=== PATIENT | male | born 1975 | race Caucasian/White ===

== ENCOUNTER 2021-12-04 14:33 | Outpatient (REF) | payer OTHER, SELFPAY ==
[2021-12-04 15:27] LABS: MANUAL DIFF FLAG NO
[2021-12-04 15:34] LABS: Basophils Percent Auto 0.2 % (0-2); Eosinophils Percent Auto 0.2 % (0-4); Hematocrit 37.8 % (42.0-52.0); Hemoglobin 11.2 g/dl (14.0-18.0); Imm Gran Abs Auto 0.81 X10*3/uL (0.00-0.03); Imm Gran Pct Auto 4.6 % (0.0-0.4); Lymphocytes Absolute Auto 0.6 X10*3/uL (1.2-4.9); Lymphocytes Percent Auto 3.3 % (20-40); Mean Corpuscular HGB Conc 29.6 g/dl (31.0-36.0); Mean Corpuscular Hemoglobin 25.2 pg (27.0-33.0); Mean Corpuscular Volume 85.1 fL (80.0-98.0); Mean Platelet Volume 10.3 fL (9.4-12.4); Monocytes Absolute Auto 0.9 X10*3/uL (0.1-1.2); Monocytes Percent Auto 5.2 % (2-11); Neutrophils Absolute Auto 15.3 x10*3/uL (2.0-8.3); Neutrophils Percent Auto 86.5 % (45-73); Platelet Count 292 X10*3/uL (160-400); Red Blood Count 4.44 X10*6/uL (4.60-5.80); Red Cell Distribution Width 23.8 % (11.0-16.0); White Blood Count 17.7 X10*3/uL (4.8-10.8)
[2021-12-04 15:39] LABS: INTERNATIONAL NORM RATIO 1.3 (0.9-1.1); Prothrombin Time 14.4 SEC (9.9-13.0)
[2021-12-04 16:08] LABS: Erythrocyte Sedimentation Rate 78 MM/HR (0-15)
[2021-12-04 17:39] LABS: Alanine Aminotransferase 291 U/L (0-40); Albumin Level 3.2 g/dL (3.5-5.0); Alkaline Phosphatase 2920 U/L (39-117); Anion Gap 15 (12-20); Aspartate Amino Transferase 204 U/L (5-37); Bilirubin Direct 17.5 mg/dL (0.0-0.5); Bilirubin Total 21.5 mg/dL (0.0-1.0); Blood Urea Nitrogen 25 mg/dL (9-16); C Reactive Protein 3.49 mg/dL (< or = 0.50); Calcium 9.1 mg/dL (8.4-10.2); Carbon Dioxide 22 mmol/L (22-29); Chloride 104 mmol/L (96-108); Estimated Glomerular Filt Rate > 60; Glucose Random 135 mg/dL (60-115); Iron 28 mcg/dL (45-160); Percent Iron Saturation 10 % (15-50); Potassium 3.7 mmol/L (3.3-5.1); Sodium 137 mmol/L (135-145); Total Iron Binding Capacity 272 mcg/dL (228-428); Total Protein 5.8 g/dL (6.5-8.0); Unsaturated Iron Binding 244 ug/dL
[2021-12-04 18:10] LABS: Ferritin 1784 ng/mL (20-250)
[2021-12-05 10:28] LABS: HBsAGNum1 0.15 S/CO (0.00-0.99); Hepatitis B Surface Antigen Negative (Negative); ~HepC Num1 0.09 S/CO (0.00-0.79); ~Hepatitis C Antibody Nonreactive (Nonreactive)
[2021-12-05 11:28] LABS: HBc Num1 0.49 S/CO (0.00-0.79); Hepatitis B Core Antibody Nonreactive (Nonreactive); ~Hepatitis B Surface Antibody NONREACTIVE (Nonreactive)
[2021-12-06 09:15] LABS: Hepatitis A Antibody IgM 0.15 Index (0-0.79); ~Hepatitis A Antibody IgM Nonreactive (Nonreactive)
[2021-12-06 11:51] LABS: Anti Nuclear Antibody Screen NEGATIVE (NEGATIVE)
[2021-12-06 18:56] LABS: Alpha 1 Anti-trypsin 264 mg/dL (83-199); Ceruloplasmin 37 mg/dL (18-36)
[2021-12-07 16:17] LABS: FIB-ALT 260 U/L (9-46); FIB-Alpha-2-Macroglobulin 464 mg/dL (106-279); FIB-Apolipoprotein A1 46 mg/dL (94-176); FIB-GGT 2620 U/L (3-95); FIB-Haptoglobin 454 mg/dL (43-212); FIB-Total Bilirubin 21.6 mg/dL (0.2-1.2); Liver Fibrosis Stage F4; Nec Inflam Act Grade A3; Nec Inflam Act Score 0.95
[2021-12-09 13:27] LABS: Smooth Muscle Antibody <20 U (<20)
[2021-12-09 13:36] LABS: Alpha Fetoprotein 3.5 ng/mL (<6.1)
[2021-12-09 14:36] LABS: Mitochondrial Antibodies NEGATIVE (NEGATIVE)
== END 2021-12-04 14:34 | disposition home or self-care (01) ==
LOC: HO.LAB 14:33
PROVIDERS: PCP Pediatrics; Visit Provider Internal Medicine
DX: R17 Unspecified jaundice (principal)
CPT/HCPCS: 36415; 80053; 81596; 82103; 82105; 82140; 82248; 82390; 82728; 83540; 85025; 85610; 85652; 86015; 86038; 86039; 86140; 86255; 86256; 86704; 86706; 86709; 86803; 87340

== ENCOUNTER 2021-12-23 11:55 | Outpatient (REF) | payer OTHER, SELFPAY ==
[2021-12-23 12:28] LABS: MANUAL DIFF FLAG NO
[2021-12-23 12:38] LABS: Basophils Percent Auto 0.2 % (0-2); Eosinophils Percent Auto 0.1 % (0-4); Hematocrit 38.4 % (42.0-52.0); Hemoglobin 11.3 g/dl (14.0-18.0); Imm Gran Abs Auto 0.57 X10*3/uL (0.00-0.03); Imm Gran Pct Auto 3.1 % (0.0-0.4); Lymphocytes Absolute Auto 0.6 X10*3/uL (1.2-4.9); Lymphocytes Percent Auto 3.1 % (20-40); Mean Corpuscular HGB Conc 29.4 g/dl (31.0-36.0); Mean Corpuscular Hemoglobin 25.4 pg (27.0-33.0); Mean Corpuscular Volume 86.3 fL (80.0-98.0); Mean Platelet Volume 9.6 fL (9.4-12.4); Monocytes Absolute Auto 0.9 X10*3/uL (0.1-1.2); Monocytes Percent Auto 4.9 % (2-11); Neutrophils Absolute Auto 16.3 x10*3/uL (2.0-8.3); Neutrophils Percent Auto 88.6 % (45-73); Platelet Count 247 X10*3/uL (160-400); Red Blood Count 4.45 X10*6/uL (4.60-5.80); Red Cell Distribution Width 23.9 % (11.0-16.0); White Blood Count 18.4 X10*3/uL (4.8-10.8)
[2021-12-23 12:42] LABS: INTERNATIONAL NORM RATIO 1.3 (0.9-1.1); Prothrombin Time 14.4 SEC (9.9-13.0)
[2021-12-23 12:45] LABS: Partial Thromboplastin Time 36.7 SEC (24.1-38.0)
[2021-12-23 12:50] LABS: Ammonia 42 umol/L (13-55)
== END 2021-12-23 11:56 | disposition home or self-care (01) ==
LOC: HO.LAB 11:55
PROVIDERS: Visit Provider Internal Medicine
DX: R17 Unspecified jaundice (principal)
CPT/HCPCS: 36415; 82140; 85025; 85610; 85730

== ENCOUNTER 2021-12-25 07:55 | Day surgery (SDC) | payer OTHER, SELFPAY ==
--- NOTE | ~2021-12-25 | US_ITS ---
EXAMINATION: ULTRASOUND-GUIDED LIVER CORE BIOPSY CLINICAL INFORMATION: Jaundice. COMPARISON: None TECHNIQUE: Ultrasound-guided core biopsy of the liver. FINDINGS: Informed consent was obtained from the patient prior to the procedure. During this process, the procedure and potential alternatives were explained, along with the intended outcome and benefits. The risks of the procedure, as well as the risk of not doing the procedure, were discussed. The patient was given the opportunity to ask questions regarding the procedure and appeared competent to make medical decisions. A signed consent form which documents this discussion was placed in the medical record. Using sterile technique and ultrasound guidance a 17-gauge guiding needle was directed into the left lobe of liver. 3 18-gauge core biopsy samples were obtained with 2 being sent for pathology and the third being sent for quantitative iron stores. The patient tolerated the procedure without difficulty. Postprocedure there is no subcapsular fluid collection. US/US biopsy liver IMPRESSION: Core biopsy of the liver with ultrasound guidance as described.
[2021-12-25 07:40] VITALS: BMI 27.8
[2021-12-25 08:16] LABS: MANUAL DIFF FLAG NO
[2021-12-25 08:24] LABS: Basophils Absolute Auto 0.1 X10*3/uL (0.0-0.2); Basophils Percent Auto 0.3 % (0-2); Eosinophils Percent Auto 0.2 % (0-4); Hematocrit 41.1 % (42.0-52.0); Hemoglobin 12.1 g/dl (14.0-18.0); Imm Gran Abs Auto 0.56 X10*3/uL (0.00-0.03); Imm Gran Pct Auto 3.4 % (0.0-0.4); Lymphocytes Absolute Auto 1.1 X10*3/uL (1.2-4.9); Lymphocytes Percent Auto 6.9 % (20-40); Mean Corpuscular HGB Conc 29.4 g/dl (31.0-36.0); Mean Corpuscular Hemoglobin 25.1 pg (27.0-33.0); Mean Corpuscular Volume 85.1 fL (80.0-98.0); Monocytes Absolute Auto 0.9 X10*3/uL (0.1-1.2); Monocytes Percent Auto 5.6 % (2-11); Neutrophils Absolute Auto 13.8 x10*3/uL (2.0-8.3); Neutrophils Percent Auto 83.6 % (45-73); Platelet Count 262 X10*3/uL (160-400); Red Blood Count 4.83 X10*6/uL (4.60-5.80); Red Cell Distribution Width 23.6 % (11.0-16.0); White Blood Count 16.5 X10*3/uL (4.8-10.8)
[2021-12-25 08:32] LABS: INTERNATIONAL NORM RATIO 1.2 (0.9-1.1)
[2021-12-25 08:35] LABS: Glucose, Whole Blood 87 mg/dL (60-115)
[2021-12-25 08:35] LABS: Partial Thromboplastin Time 42.1 SEC (24.1-38.0)
[2021-12-25 08:37] LABS: Anion Gap 13 (12-20); Carbon Dioxide 24 mmol/L (22-29); Chloride 104 mmol/L (96-108); Potassium 3.6 mmol/L (3.3-5.1); Sodium 137 mmol/L (135-145)
[2021-12-25] MEDS: Lidocaine HCl 1 % MPF 5 ML VIAL SUBCUT (09:24)
[2021-12-25 10:04] VITALS: BP 104/59; PULSE 99; RESP 18; TEMP 36.8; O2SAT 99
[2021-12-25 10:34] VITALS: BP 94/60; PULSE 100; RESP 18; O2SAT 97
[2021-12-25 11:04] VITALS: BP 105/73; PULSE 95; RESP 18; O2SAT 97
[2021-12-25 11:34] VITALS: BP 111/62; PULSE 99; RESP 18; O2SAT 97
[2021-12-25 12:04] VITALS: BP 104/60; PULSE 96; RESP 18; TEMP 36.8; O2SAT 97
[2022-01-03 14:11] LABS: Iron Index 0.1 umol/g/yr (<1.0); Iron, Liver Tissue 217 ug/g drywt (400-2200)
== END 2021-12-25 12:10 | disposition home or self-care (01) ==
LOC: HO.SSS 07:55
PROVIDERS: Radiology Diagnostic Radiology; PCP Pediatrics; Visit Provider Radiology Diagnostic Radiology
DX: R17 Unspecified jaundice (principal); K76.89 Other specified diseases of liver; U07.1 COVID-19; J45.909 Unspecified asthma, uncomplicated; Z79.51 Long term (current) use of inhaled steroids; Z79.899 Other long term (current) drug therapy; Z88.0 Allergy status to penicillin; Z88.8 Allergy status to other drugs, medicaments and biological substances
CPT/HCPCS: 36415; 47000; 76942; 80051; 82947; 83540; 85025; 85610; 85730; 88300; 88307; 88313; 99152; 99153; J2250; J3010

== ENCOUNTER 2022-10-31 13:07 | Outpatient (REF) | payer OTHER, SELFPAY ==
--- NOTE | ~2022-10-31 | MR_ITS ---
EXAMINATION: MR ABDOMEN WITHOUT AND WITH CONTRAST CLINICAL INFORMATION: Liver disease, jaundice, Covid liver injury COMPARISON: Liver biopsy ultrasound 01/12/2022 TECHNIQUE: MRI of the abdomen before and after the IV administration of 10 mL of Gadavist was obtained using routine sequences. FINDINGS: LUNG BASES: The visualized lung bases are unremarkable. KIDNEYS AND URETERS: Unremarkable. GALLBLADDER: Status post cholecystectomy. LIVER AND BILIARY TREE: Abnormal signal and morphology in the liver most notably throughout the left hepatic lobe. There are regions of T2 hypointense and hypoenhancing signal in a lobular masslike appearance clustered around the intrahepatic bile ducts with trace associated intrahepatic biliary duct dilatation. Liver is enlarged measuring 25.5 cm in span. Benign-appearing hepatic cysts. PANCREAS: Unremarkable SPLEEN: Spleen is enlarged measuring 16.4 cm in span. ADRENAL GLANDS: Unremarkable GASTROINTESTINAL TRACT: Unremarkable. LYMPH NODES: No lymphadenopathy. VASCULAR: Unremarkable ABDOMINAL WALL: Unremarkable. OSSEOUS STRUCTURES: Unremarkable. 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 Hepatosplenomegaly.
== END 2022-10-31 13:08 | disposition home or self-care (01) ==
LOC: HO.MRI 13:07
PROVIDERS: PCP Pediatrics; Visit Provider Internal Medicine
DX: K76.89 Other specified diseases of liver (principal)
CPT/HCPCS: 74183; A9585

== ENCOUNTER 2022-12-04 14:19 | Outpatient (REF) | payer OTHER, SELFPAY ==
[2022-12-04 15:04] LABS: Alanine Aminotransferase 55 U/L (0-40); Alkaline Phosphatase 448 U/L (39-117); Aspartate Amino Transferase 90 U/L (5-37); Bilirubin Direct 6.1 mg/dL (0.0-0.5); Bilirubin Total 8.1 mg/dL (0.0-1.0); Total Protein 5.6 g/dL (6.5-8.0)
[2022-12-12 00:24] LABS: Alpha Fetoprotein 2.3 ng/mL (<6.1); Carbohydrate Antigen 19-9 40 U/mL (<34); FIB-ALT 57 U/L (9-46); FIB-Alpha-2-Macroglobulin 284 mg/dL (106-279); FIB-Apolipoprotein A1 54 mg/dL (94-176); FIB-GGT 249 U/L (3-95); FIB-Haptoglobin 131 mg/dL (43-212); FIB-Total Bilirubin 7.6 mg/dL (0.2-1.2); Liver Fibrosis Score 0.97; Liver Fibrosis Stage F4; Nec Inflam Act Grade A2; Nec Inflam Act Score 0.58
== END 2022-12-04 14:20 | disposition home or self-care (01) ==
LOC: HO.LAB 14:19
PROVIDERS: PCP Pediatrics; Visit Provider Internal Medicine
DX: R93.2 Abnormal findings on diagnostic imaging of liver and biliary tract (principal); R17 Unspecified jaundice; K76.89 Other specified diseases of liver; K83.9 Disease of biliary tract, unspecified
CPT/HCPCS: 36415; 80076; 81596; 82105; 82378; 86301

== ENCOUNTER 2023-03-18 15:34 | Outpatient (REF) | payer OTHER, SELFPAY ==
[2023-03-18 15:52] LABS: MANUAL DIFF FLAG NO
[2023-03-18 16:04] LABS: Ammonia 33 umol/L (13-55)
[2023-03-18 17:24] LABS: Basophils Absolute Auto 0.1 X10*3/uL (0.0-0.2); Basophils Percent Auto 0.7 % (0-2); Eosinophils Absolute Auto 0.1 X10*3/uL (0.0-0.4); Eosinophils Percent Auto 1.1 % (0-4); Hematocrit 39.8 % (42.0-52.0); Hemoglobin 12.8 g/dl (14.0-18.0); Imm Gran Abs Auto 0.06 X10*3/uL (0.00-0.03); Imm Gran Pct Auto 0.5 % (0.0-0.4); Lymphocytes Percent Auto 8.1 % (20-40); Mean Corpuscular HGB Conc 32.2 g/dl (31.0-36.0); Mean Corpuscular Hemoglobin 28.3 pg (27.0-33.0); Mean Corpuscular Volume 88.1 fL (80.0-98.0); Mean Platelet Volume 11.5 fL (9.4-12.4); Monocytes Absolute Auto 1.3 X10*3/uL (0.1-1.2); Monocytes Percent Auto 11.1 % (2-11); Neutrophils Absolute Auto 9.3 x10*3/uL (2.0-8.3); Neutrophils Percent Auto 78.5 % (45-73); Platelet Count 239 X10*3/uL (160-400); Red Blood Count 4.52 X10*6/uL (4.60-5.80); Red Cell Distribution Width 21.8 % (11.0-16.0); White Blood Count 11.8 X10*3/uL (4.8-10.8)
[2023-03-18 17:39] LABS: INTERNATIONAL NORM RATIO 1.4 (0.9-1.1)
[2023-03-18 18:08] LABS: Alanine Aminotransferase 40 U/L (0-40); Albumin Level 2.8 g/dL (3.5-5.0); Alkaline Phosphatase 350 U/L (39-117); Anion Gap 13 (12-20); Aspartate Amino Transferase 65 U/L (5-37); Bilirubin Direct 5.9 mg/dL (0.0-0.5); Bilirubin Total 7.9 mg/dL (0.0-1.0); Blood Urea Nitrogen 14 mg/dL (9-16); Calcium 8.6 mg/dL (8.4-10.2); Carbon Dioxide 24 mmol/L (22-29); Chloride 111 mmol/L (96-108); Estimated Glomerular Filt Rate > 60; Glucose Random 89 mg/dL (60-115); Potassium 4.3 mmol/L (3.3-5.1); Sodium 144 mmol/L (135-145); Total Protein 6.3 g/dL (6.5-8.0)
== END 2023-03-18 15:35 | disposition home or self-care (01) ==
LOC: HO.LAB 15:34
PROVIDERS: Visit Provider Internal Medicine
DX: K74.60 Unspecified cirrhosis of liver (principal)
CPT/HCPCS: 36415; 80048; 80076; 82140; 85025; 85610

== ENCOUNTER 2023-07-27 10:21 | Day surgery (SDC) | payer MEDICARE, SELFPAY ==
--- NOTE | 2023-07-24 12:37 | HO.ANESPROP2 ---
Documented by User: Lora Gonzales NP 07/24/23 13:06 HPI - Anesthesia Eval Consult details Narrative: 48yo M for Upper Endoscopy and Colonoscopy Pt admitted at [facility] 07/20/23-07/23/23 for choledocholithiasis requiring ERCP (stones and sludge extracted). IV abx with concern for cholangitis. Paracentesis fluid with no signs of SBP. Discharged home on abx for 7 days total tx. Pt with cirrhosis following long inpt COVID 2020 / meropenem Unable to reach patient by phone to confirm current status or completion of abx. Reviewed with Dr Solange GOMEZ Past Medical History Medical History Ascites COVID-19 Asthma Surgical History Surgical History Hx of tracheostomy History of left inguinal hernia repair Hx of cholecystectomy History of ERCP Social History Social History Are you a primary director day care center to a significant other at home: No Patient Tobacco Use Status: Never used Tobacco Meds Allergies Allergy/AdvReac Type Severity Reaction Status Date / Time amoxicillin Allergy Hives Verified 12/25/21 08:31 meropenem Allergy Nose Bleed Verified 12/25/21 08:31 quetiapine [From Seroquel] Allergy Unknown Verified 12/25/21 08:31 Home Medications Medication Instructions Recorded Confirmed Last Taken Type dicyclomine 10 mg capsule 10 mg PO QID PRN abdominal cramps 07/24/23 07/24/23 Unknown History fluticasone 250 mcg-salmeterol 50 1 ea inhalation 07/24/23 Unknown History mcg/dose blistr powdr for inhalation (Advair Diskus) gabapentin 600 mg tablet 600 mg PO 07/24/23 Unknown History montelukast 10 mg tablet 10 mg PO QPM 07/24/23 07/24/23 Unknown History naltrexone 50 mg tablet 50 mg PO DAILY PRN Itching 07/24/23 07/24/23 Unknown History omeprazole 20 mg capsule,delayed 20 mg PO DAILY 07/24/23 07/24/23 Unknown History release pregabalin 25 mg capsule 25 mg PO TID 07/24/23 07/24/23 Unknown History spironolactone 25 mg tablet 25 mg PO DAILY 07/24/23 07/24/23 Unknown History umeclidinium 62.5 mcg/actuation 1 inh inhalation DAILY 07/24/23 07/24/23 Unknown History blister powder for inhalation (Incruse Ellipta) ursodiol 500 mg tablet 500 mg PO TID 07/24/23 07/24/23 Unknown History Exam Exam Date and Time: July 24, 2023 1237 Pertinent Lab Results Pertinent Lab Results: BMP 07/23/23 Na 136 K 4.2 Cl 107 Bicarb 18 (L) BUN 33 (H) Creat 1.4 (H) WBC 14.2 (H) Hgb 11.3 (L) HCT 34.8 (L) Plt 221 Narrative Narrative: CXR 07/20/23 Low lung volumes with lung base atelectasis. No definite acute process CT Abd/Pelvis 07/20/23 Moderate to severe intrahepatic and extrahepatic biliary duct dilation, CBD measuring up to 2.8cm. Vague hyperdensities in the mid and distal CBD may represent noncalcified choedocholithiasis. Cirrhotic liver with portal htn, large volume ascites Assessment and Plan Assessment Anesthesia Assessment: Chart Reviewed Documented by User: Amelia Lizama MD 07/27/23 13:17 PMFSH Active Problems Active Problems: S/p ERCP last week Bilirubin today, Lfts worse. INR 1.9 H/o tracheostomy- closed Past Medical History Medical History Ascites COVID-19 Asthma Family History Family history of problems with anesthesia: No Surgical History Surgical History Hx of tracheostomy History of left inguinal hernia repair Hx of cholecystectomy History of ERCP History of Problems with Anesthesia: No Social History Social History Are you a primary director day care center to a significant other at home: No Patient Tobacco Use Status: Never used Tobacco Meds Allergies Allergy/AdvReac Type Severity Reaction Status Date / Time amoxicillin Allergy Hives Verified 12/25/21 08:31 meropenem Allergy Nose Bleed Verified 12/25/21 08:31 quetiapine [From Seroquel] Allergy Unknown Verified 12/25/21 08:31 Home Medications Medication Instructions Recorded Confirmed Last Taken Type dicyclomine 10 mg capsule 10 mg PO QID PRN abdominal cramps 07/24/23 07/24/23 Unknown History fluticasone 250 mcg-salmeterol 50 1 ea inhalation 07/24/23 Unknown History mcg/dose blistr powdr for inhalation (Advair Diskus) gabapentin 600 mg tablet 600 mg PO 07/24/23 Unknown History montelukast 10 mg tablet 10 mg PO QPM 07/24/23 07/24/23 Unknown History naltrexone 50 mg tablet 50 mg PO DAILY PRN Itching 07/24/23 07/24/23 Unknown History omeprazole 20 mg capsule,delayed 20 mg PO DAILY 07/24/23 07/24/23 Unknown History release pregabalin 25 mg capsule 25 mg PO TID 07/24/23 07/24/23 Unknown History spironolactone 25 mg tablet 25 mg PO DAILY 07/24/23 07/24/23 Unknown History umeclidinium 62.5 mcg/actuation 1 inh inhalation DAILY 07/24/23 07/24/23 Unknown History blister powder for inhalation (Incruse Ellipta) ursodiol 500 mg tablet 500 mg PO TID 07/24/23 07/24/23 Unknown History Exam Height,Weight and Vital Signs: Height 6 ft Weight 95.254 kg Vital Signs Temp Pulse Resp BP Pulse Ox O2 Del Method 07/27/23 11:52 96.9 F 90 18 108/68 99 Room Air Pertinent Lab Results Pertinent Lab Results: Lab Results 07/27/23 Range/Units 11:45 WBC 16.8 H (4.8-10.8) X10*3/uL RBC 4.60 (4.60-5.80) X10*6/uL Hgb 13.0 L (14.0-18.0) g/dl Hct 38.0 L (42.0-52.0) % MCV 82.6 (80.0-98.0) fL MCH 28.3 (27.0-33.0) pg MCHC 34.2 (31.0-36.0) g/dl RDW 21.0 H (11.0-16.0) % Plt Count 206 (160-400) X10*3/uL MPV 10.3 (9.4-12.4) fL Immature Gran % (Auto) 3.8 H (0.0-0.4) % Neut % (Auto) 82.6 H (45-73) % Lymph % (Auto) 7.4 L (20-40) % [place] % (Auto) 4.8 (2-11) % Eos % (Auto) 1.0 (0-4) % Baso % (Auto) 0.4 (0-2) % Lymph # (Auto) 1.3 (1.2-4.9) X10*3/uL [place] # (Auto) 0.8 (0.1-1.2) X10*3/uL Eos # (Auto) 0.2 (0.0-0.4) X10*3/uL Baso # (Auto) 0.1 (0.0-0.2) X10*3/uL Abs Immat Gran (auto) 0.64 H (0.00-0.03) X10*3/uL Absolute Neuts (auto) 13.8 H (2.0-8.3) x10*3/uL Absolute Nucleated RBC 0.000 (0.0-0.012) X10*3/uL Nucleated RBC % (auto) 0.0 (0.0-0.2) /100WBC PT 22.9 H (11.1-13.3) SEC INR 1.9 H (0.9-1.1) BMP 07/23/23 Na 136 K 4.2 Cl 107 Bicarb 18 (L) BUN 33 (H) Creat 1.4 (H) WBC 14.2 (H) Hgb 11.3 (L) HCT 34.8 (L) Plt 221 Airway Mallampati Class: III TM Dist: >3cm Neck ROM: Full Loose/Missing/Broken Teeth: No (2 caps intact. Denies broken, loose, missing teeth) Heart: RRR Lungs: CTAB Assessment and Plan Assessment Anesthesia Assessment: Anesthesia Plan Discussed Final Anesthetic Review Family History of Problems with Anesthesia: No History of Problems with Anesthesia: No NPO: Yes ASA Class: IV Final Preanesthetic Review: No Changes in Pt Med Stat, Meds/Allgs Chart Reviewed, Consent Obtained/Reviewed and Anes Risks/Benef Reviewed Patient Risk: High Procedure Risk: Intermediate Assessment/Block/Sedation in SS: Assess/Block/Sedation-SS Anesthetic Plan Anesthetic Plan: GA and MAC: Disposition: Standard PACU
[2023-07-27] MEDS: Lactated Ringers 1,000 ML 100 ML IVCONT (11:15)
[2023-07-27] MEDS: cefTRIAXone sodium 1 GM in 0.9 % Sodium Chloride 50 ML IV (11:35)
[2023-07-27 11:51] LABS: MANUAL DIFF FLAG NO
[2023-07-27 11:52] VITALS: BP 108/68; PULSE 90; RESP 18; TEMP 36.1; O2SAT 99; BMI 28.5
[2023-07-27 11:58] LABS: Basophils Absolute Auto 0.1 X10*3/uL (0.0-0.2); Basophils Percent Auto 0.4 % (0-2); Eosinophils Absolute Auto 0.2 X10*3/uL (0.0-0.4); Imm Gran Abs Auto 0.64 X10*3/uL (0.00-0.03); Imm Gran Pct Auto 3.8 % (0.0-0.4); Lymphocytes Absolute Auto 1.3 X10*3/uL (1.2-4.9); Lymphocytes Percent Auto 7.4 % (20-40); Mean Corpuscular HGB Conc 34.2 g/dl (31.0-36.0); Mean Corpuscular Hemoglobin 28.3 pg (27.0-33.0); Mean Corpuscular Volume 82.6 fL (80.0-98.0); Mean Platelet Volume 10.3 fL (9.4-12.4); Monocytes Absolute Auto 0.8 X10*3/uL (0.1-1.2); Monocytes Percent Auto 4.8 % (2-11); Neutrophils Absolute Auto 13.8 x10*3/uL (2.0-8.3); Neutrophils Percent Auto 82.6 % (45-73); Platelet Count 206 X10*3/uL (160-400); White Blood Count 16.8 X10*3/uL (4.8-10.8)
[2023-07-27 12:03] LABS: INTERNATIONAL NORM RATIO 1.9 (0.9-1.1); Prothrombin Time 22.9 SEC (11.1-13.3)
[2023-07-27 12:21] LABS: Alanine Aminotransferase 88 U/L (0-40); Albumin Level 2.7 g/dL (3.5-5.0); Alkaline Phosphatase 438 U/L (39-117); Anion Gap 13 (12-20); Aspartate Amino Transferase 106 U/L (5-37); Bilirubin Total 20.5 mg/dL (0.0-1.0); Blood Urea Nitrogen 21 mg/dL (9-16); Calcium 9.7 mg/dL (8.4-10.2); Carbon Dioxide 19 mmol/L (22-29); Chloride 108 mmol/L (96-108); Creatinine Clr Calc Pharmacy 94.4; Estimated Glomerular Filt Rate > 60; Glucose Fasting 68 mg/dL (60-99); Potassium 3.3 mmol/L (3.3-5.1); Sodium 137 mmol/L (135-145); Total Protein 6.2 g/dL (6.5-8.0)
[2023-07-27 13:46] VITALS: BP 98/45; PULSE 94; RESP 16; TEMP 36.5; O2SAT 97
[2023-07-27 14:01] VITALS: BP 94/55; PULSE 93; RESP 16; O2SAT 97
--- NOTE | 2023-07-27 14:06 | P.BOP_ITS ---
Brief Operative Note Date of Service: 07/27/23 Pre-op diagnosis: Cirrhosis, screening Post-op diagnosis: other (Esophageal candidiasis, Portal gastropathy, Internal hemorrhoids) Procedure: EGD, Colonoscopy to the ICV Surgeon: Sp Mitchell Anesthesia: MAC Was an [employer]ge [employer] Operator used for this Procedure?: No Estimated blood loss (mL): 0 Pathology: none sent Condition: stable Disposition: PACU
[2023-07-27 14:15] VITALS: BP 93/53; PULSE 95; RESP 18; TEMP 36.8; O2SAT 97
--- NOTE | 2023-07-27 22:03 | OP_ITS ---
DATE OF SERVICE: 07/27/2023 SURGEON: Sp Mitchell MD INDICATIONS: The patient presents for evaluation of cirrhosis and colorectal cancer screening. Full consent has been obtained from him for this, including risks of bleeding and perforation. PREOPERATIVE DIAGNOSIS: Cirrhosis and colorectal cancer screening. POSTOPERATIVE DIAGNOSIS: PROCEDURE PERFORMED: Esophagogastroduodenoscopy and colonoscopy to the ileocecal valve. ESTIMATED BLOOD LOSS: COMPLICATIONS: ANESTHESIA: Monitored anesthesia care. ASSISTANTS: SPECIMENS: POSTOPERATIVE DIAGNOSES: Cirrhosis and colorectal cancer screening, probable esophageal candidiasis, portal gastropathy, small hiatal hernia, small colon polyps not removed, internal hemorrhoids. DESCRIPTION OF PROCEDURE: The patient was placed in the left lateral decubitus position. The Olympus video gastroscope was passed in the posterior oropharynx and upper esophagus under direct vision. The scope was passed slowly to the distal esophagus. The gastroesophageal junction appeared at 38 cm. Extending from this to the proximal esophagus was a whitish exudate, which just about washed off with irrigation but was consistent with candidiasis. However, biopsies were not obtained given his coagulopathy. I did not visualize any underlying esophageal varices. The scope entered the stomach. There was a small hiatal hernia. The scope was advanced to the pylorus, and the duodenum was cannulated to the descending portion. The duodenum including the bulb appeared normal without mass or ulceration. The scope was withdrawn back to the stomach. The gastric antrum and body appeared normal other than a somewhat congested appearance consistent with gastropathy from his portal hypertension. There was good motility. The scope was retroflexed visualizing the proximal stomach carefully, which were also appeared consistent with a portal gastropathy but without any sign of varices. The scope was straightened and withdrawn back to the esophagus. Again noted was the overlying whitish exudate, but without any underlying esophagitis nor varices as best I could tell after irrigating the esophagus. The scope was withdrawn from the patient. He was turned around for the colonoscopy. The digital rectal exam revealed a poor sphincter tone, but no other abnormalities. The Olympus video pediatric colonoscope was entered into the rectum and advanced to the level of the ileocecal valve. However, despite abdominal wall pressure, I could not enter the cecum. Attempts at the abdominal wall pressure were very difficult due to his significant amount of ascites. The ileocecal valve appeared normal. The scope was then slowly withdrawn assessing all mucosal surfaces carefully. Preparation was excellent. I did not visualize any sign of colitis nor angiodysplasia. The colon did appear edematous consistent with portal hypertension as well. There were at least 2 small, less than 10 mm polyps, which were not removed nor biopsied given his coagulopathy. They did not look suspicious at all. The rectum was visualized both in the forward viewing and retroflexed positions and appeared consistent with some portal hypertension as well with increased rectal veins and hemorrhoids. The scope was withdrawn from the patient. He tolerated both procedures well and was returned to the recovery area in stable condition. IMPRESSION: 1. Probable esophageal candidiasis. 2. Portal gastropathy. 3. Hiatal hernia. 4. Small colon polyps, not biopsied nor removed. 5. Increased rectal veins and hemorrhoids consistent with portal hypertension. 6. Edematous colon in relation to portal hypertension. PLAN: The patient will continue his current medical regimen. He did have an ERCP with removal of stones from his bile duct last week. This was done at [facility]. His total bilirubin today was up to 20.5 compared to 7.9 back in February. I suspect this is a residual bump in the bilirubin as a result of his recent sepsis and biliary intervention. We shall continue to follow that. He has accumulated some ascites and peripheral edema since the hospitalization last week, which I suspect is from all of fluid he received when he presented there with some sepsis. He is going to resume his diuretics today, and he does have an appointment with his corn grower at the end of this week. He will go home with the copy of his labs from today, and I did ask him to obtain further labs from his corn grower to be sure he is tolerating the diuretics. In discussing with him, the ascites is bothering him, and I will schedule him for a tentative paracentesis for the end of next week if need be. However, I did advise him and his that if he is feeling better on the diuretics, then he can always cancel the paracentesis. He will also be scheduled for a followup office visit to see me. His next appointment at [facility] is in approximately September as well. He knows to avoid all aspirin and NSAIDs. This has all been discussed with the patient and his in detail. Of note, he did receive a dose of IV Ceftriaxone prior to his procedures in regard to prohylaxis for his ascites. MD NAHEED Petersen/EFREN / [phone] NEIL
== END 2023-07-27 15:09 | disposition home or self-care (01) ==
PROVIDERS: PCP Pediatrics; Visit Provider Internal Medicine
PROC: (CPT 43235; principal; 2023-07-27 11:50)
DX: Z12.11 Encounter for screening for malignant neoplasm of colon (principal); K64.8 Other hemorrhoids; K63.5 Polyp of colon; K74.60 Unspecified cirrhosis of liver; R18.8 Other ascites; K76.89 Other specified diseases of liver; K76.6 Portal hypertension; K31.89 Other diseases of stomach and duodenum; B37.81 Candidal esophagitis; K44.9 Diaphragmatic hernia without obstruction or gangrene; Z86.16 Personal history of COVID-19
CPT/HCPCS: 43235; G0121; 36415; 80048; 80076; 85025; 85610; 86850; 86900; 86901; J0696

== ENCOUNTER 2023-08-07 11:47 | Day surgery (SDC) | payer MEDICARE, SELFPAY ==
--- NOTE | ~2023-08-07 | US_ITS ---
Ultrasound paracentesis History: Ascites. Risks and benefits and possible complications were discussed with the patient and consent form was signed. A safe pocket of ascitic fluid was identified using ultrasound guidance, and the overlying skin was marked. The abdomen prepped and draped in sterile fashion. 1% lidocaine was used as a local anesthetic. Using ultrasound guidance, a 5 fr catheter was placed into the ascitic pocket. 6.8 liters of yellow fluid was removed passively. The catheter was then removed. Fluid was sent for analysis. A few service center representative images from before and after the examination were obtained. The procedure was performed by Phi Luke PA-C and supervised by Dr. Briones. US/US paracentesis abd w/image Impression: Ultrasound-guided paracentesis as described above. No immediate complications
[2023-08-07 12:36] LABS: MANUAL DIFF FLAG NO
[2023-08-07 12:40] LABS: Basophils Absolute Auto 0.1 X10*3/uL (0.0-0.2); Basophils Percent Auto 0.3 % (0-2); Eosinophils Absolute Auto 0.1 X10*3/uL (0.0-0.4); Eosinophils Percent Auto 0.8 % (0-4); Hematocrit 34.1 % (42.0-52.0); Hemoglobin 11.9 g/dl (14.0-18.0); Imm Gran Pct Auto 1.4 % (0.0-0.4); Lymphocytes Absolute Auto 0.7 X10*3/uL (1.2-4.9); Lymphocytes Percent Auto 4.9 % (20-40); Mean Corpuscular HGB Conc 34.9 g/dl (31.0-36.0); Mean Corpuscular Volume 83.2 fL (80.0-98.0); Mean Platelet Volume 10.6 fL (9.4-12.4); Monocytes Absolute Auto 1.4 X10*3/uL (0.1-1.2); Monocytes Percent Auto 9.6 % (2-11); Platelet Count 174 X10*3/uL (160-400); Red Cell Distribution Width 23.8 % (11.0-16.0); White Blood Count 14.4 X10*3/uL (4.8-10.8)
[2023-08-07 12:49] LABS: INTERNATIONAL NORM RATIO 1.6 (0.9-1.1); Prothrombin Time 19.6 SEC (11.1-13.3)
[2023-08-07 12:52] LABS: Partial Thromboplastin Time 35.5 SEC (26.0-36.4)
[2023-08-07 12:53] LABS: Alanine Aminotransferase 46 U/L (0-40); Albumin Level 2.6 g/dL (3.5-5.0); Alkaline Phosphatase 307 U/L (39-117); Anion Gap 14 (12-20); Aspartate Amino Transferase 40 U/L (5-37); Bilirubin Direct 13.3 mg/dL (0.0-0.5); Bilirubin Total 16.6 mg/dL (0.0-1.0); Blood Urea Nitrogen 23 mg/dL (9-16); Calcium 8.9 mg/dL (8.4-10.2); Carbon Dioxide 22 mmol/L (22-29); Chloride 106 mmol/L (96-108); Estimated Glomerular Filt Rate > 60; Glucose Fasting 91 mg/dL (60-99); Sodium 138 mmol/L (135-145); Total Protein 6.3 g/dL (6.5-8.0)
[2023-08-07 14:40] VITALS: BP 99/61; PULSE 78; RESP 12; TEMP 36.8
[2023-08-07] MEDS: Lidocaine HCl 1 % 20 ML VIAL 5 ML SUBCUT (14:56)
[2023-08-07 15:00] LABS: MN% 27.5 %; PMN% 72.5 %; RBC Peritoneal Fluid 0.003 X10*6/uL; WBC Peritoneal Fluid 6.571 X10*3/uL
[2023-08-07 16:09] LABS: BF Shift QC OK YES; Lymphocyte Peritoneal Fl 6 %; Monocytes Peritoneal Fl 13 %; Neutrophils Peritoneal Fluid 72 %; Other Peritioneal Fl 9 %
[2023-08-07 18:43] LABS: Albumin Peritoneal Fluid 0.8 GM/DL
== END 2023-08-07 15:11 | disposition home or self-care (01) ==
PROVIDERS: Internal Medicine; PCP Pediatrics; Visit Provider Radiology Diagnostic Radiology
DX: K74.60 Unspecified cirrhosis of liver (principal); R18.8 Other ascites; K76.89 Other specified diseases of liver
CPT/HCPCS: 36415; 49083; 80048; 80076; 82042; 85025; 85610; 85730; 87070; 87073; 87205; 89051; P9047

== ENCOUNTER → 2023-08-07 11:50 | Outpatient (BNV) | payer MEDICARE, SELFPAY | PROVIDERS: PCP Pediatrics; Visit Provider Radiology Diagnostic Radiology | DX: R18.8 Other ascites (principal); K74.60 Unspecified cirrhosis of liver | CPT/HCPCS: 49083 ==

== ENCOUNTER 2023-08-08 13:57 | Inpatient (IN) | payer MEDICARE, SELFPAY ==
[2023-08-08 14:18] VITALS: BP 109/69; PULSE 94; RESP 17; TEMP 36.3; O2SAT 99; BMI 26.7
--- NOTE | 2023-08-08 14:20 | ED_ITS ---
HPI - Abdominal Pain General Chief Complaint: Recheck/Abnormal Lab/Rx Stated Complaint: abd fluid infection Time Seen by Provider: 08/08/23 15:47 Source: patient Mode of arrival: ambulatory Limitations: no limitations History of Present Illness HPI narrative: Patient is a 48 year old assigned male at with a history of liver disease presenting to the emergency department today after a paracentesis result came back abnormal. Patient states that yesterday he had a paracentesis and today, Dr. Mitchell called and informed him that his paracentesis looked abnormal and he should come to the hospital. Patient states that he does have some mild abdominal pain. Patient denies any dizziness, lightheadedness, nausea, vomiting, fever, chills, blurry vision, double vision, loss of vision, chest pain, difficulty breathing, shortness of breath, back pain, night sweats, pain with urination, increased urinary frequency, increased urinary urgency, blood in his urine or stool, syncope or a near syncopal episode, recent trauma or falls, bowel incontinence, bladder incontinence, bowel retention, bladder retention, or any other complaints at this time. MD elicited complaint: abdominal pain Pain Consistency: constant Location: diffuse Severity: mild Exacerbating factors: nothing Relieving factors: nothing Associated symptoms: denies other symptoms Related Data Home Medications Medication Instructions Recorded Confirmed dicyclomine 10 mg capsule 10 mg PO QID PRN abdominal cramps 07/24/23 08/08/23 fluticasone 250 mcg-salmeterol 50 1 ea inhalation BID 07/24/23 08/08/23 mcg/dose blistr powdr for inhalation (Advair Diskus) gabapentin 600 mg tablet 600 mg PO TID 07/24/23 08/08/23 montelukast 10 mg tablet 10 mg PO QPM 07/24/23 08/08/23 spironolactone 25 mg tablet 50 mg PO DAILY 07/24/23 08/08/23 umeclidinium 62.5 mcg/actuation 1 inh inhalation DAILY 07/24/23 08/08/23 blister powder for inhalation (Incruse Ellipta) ursodiol 500 mg tablet 500 mg PO TID 07/24/23 08/08/23 furosemide 20 mg tablet 40 mg PO DAILY 08/07/23 08/08/23 albuterol sulfate 2.5 mg/3 mL 2.5 mg inhalation Q6H PRN wheezing 10/14/23 10/14/23 (0.083 %) solution for nebulization albuterol sulfate 90 mcg/actuation 1 puff inhalation Q6H PRN wheezing 08/08/23 08/08/23 aerosol inhaler (Ventolin HFA) baclofen 10 mg tablet 10 mg PO TID 08/08/23 08/08/23 cabergoline 0.5 mg tablet 0.25 mg PO MOTH 08/08/23 08/08/23 cetirizine 10 mg tablet 10 mg PO DAILY 08/08/23 08/08/23 cholecalciferol (vitamin D3) 10 20 mcg PO DAILY 08/08/23 08/08/23 mcg (400 unit) tablet (Vitamin D3) dupilumab 300 mg/2 mL subcutaneous 300 mg subcut Q2W 08/08/23 08/08/23 pen injector (Dupixent) fluconazole 100 mg tablet 100 mg PO DAILY 08/08/23 08/08/23 fluticasone propionate 50 2 spray intranasal DAILY 08/08/23 08/08/23 mcg/actuation nasal spray,suspension hydrocortisone 5 mg tablet 5 mg PO DAILY 08/08/23 08/08/23 hydrocortisone 5 mg tablet 10 mg PO QAM 08/08/23 08/08/23 lactulose 10 gram/15 mL oral 30 ml PO DAILY PRN Constipation 08/08/23 08/08/23 solution melatonin 5 mg tablet 5 mg PO BEDTIME insomnia 08/08/23 08/08/23 midodrine 5 mg tablet 10 mg PO Q8H PRN SBP <100 mmHg 08/08/23 08/08/23 mirtazapine 7.5 mg tablet 7.5 mg PO BEDTIME 08/08/23 08/08/23 multivitamin with folic acid 400 1 tab PO DAILY 08/08/23 08/08/23 mcg tablet (Daily-Nathaniel (with folic acid)) pantoprazole 40 mg tablet,delayed 40 mg PO BEDTIME 08/08/23 08/08/23 release sennosides 8.6 mg tablet (senna) 8.6 mg PO BID PRN constipation 08/08/23 08/08/23 Allergies Allergy/AdvReac Type Severity Reaction Status Date / Time amoxicillin Allergy Hives Verified 12/25/21 08:31 meropenem Allergy Nose Bleed Verified 12/25/21 08:31 quetiapine [From Seroquel] Allergy Unknown Verified 12/25/21 08:31 Review of Systems Constitutional: Reports no additional constitutional complaints, Denies chills, Denies fever(s) and Denies night sweats Eyes: Reports no additional eye complaints, Denies blurry vision, Denies change in vision, Denies diplopia, Denies eye discharge, Denies loss of vision and Denies eye pain Denies dizziness Cardiovascular: Reports no additional cardiovascular complaints, Denies chest pain, Denies lightheadedness, Denies Loss of Consciousness and Denies dyspnea Respiratory: Reports no additional respiratory complaints and Denies dyspnea Gastrointestinal: Reports no additional gastrointestinal complaints, Reports abdominal pain, Denies melena, Denies hematochezia, Denies change in bowel habits and Denies change in stool character Genitourinary: Reports no additional male genitourinary complaints, Denies hematuria, Denies oliguria, Denies difficulty urinating, Denies dysuria, Denies urinary frequency, Denies urinary hesitancy, Denies urinary incontinence and Denies urinary urgency Musculoskeletal: Reports no additional musculoskeletal complaints, Denies numbness and Denies tingling Denies dizziness, Denies loss of vision, Denies numbness and Denies tingling Psychiatric: Reports no additional psychiatric complaints Endocrine: Reports no additional endocrine complaints Hematologic/Lymphatic: Reports no additional hematologic/lymphatic complaints Allergic/Immunologic: Reports no additional allergic/immunologic complaints PMFSH Past Medical History Attestation statement: The following information was validated with the patient. Source: old records reviewed and nursing notes reviewed Medical History Myofascial pain syndrome GERD (gastroesophageal reflux disease) Pulmonary fibrosis History of type 2 diabetes mellitus Hepatic cirrhosis Ascites COVID-19 Asthma Surgical History Hx of tracheostomy History of left inguinal hernia repair Hx of cholecystectomy History of ERCP Social History Social History Are you a primary care manager cna to a significant other at home: No Alcohol intake: former Patient Tobacco Use Status: Never used Tobacco Smoked in Last 30 Days: No Use of substances other than those prescribed or required for medical reasons: No Advance Directives: No Advance Directives Information Provided: No Nutrition Risks: No Nutritional Risk Physical Exam ED Vital Signs: Vital Signs - 24 hr 08/08/23 14:18 Temperature 97.3 F Pulse Rate 94 Respiratory Rate 17 Blood Pressure 109/69 Pulse Oximetry 99 Oxygen Delivery Method Room Air BMI result Body Mass Index 26.7 Const General: cooperative, no acute distress, alert and awake Nutritional Appearance: well nourished Orientation/consciousness: patient oriented x3 Limitations: no limitations HENMT Head: Yes normal to inspection and Yes atraumatic Ears: hearing grossly normal bilaterally and external ears normal General nose exam: Normal external nose present, no nasal discharge noted and no epistaxis Face and sinus: Yes normal facial exam, No abrasion and No laceration Mouth: Normal oral and palatal mucosa present, no drooling and no muffled voice Eyes Other: jaundiced Periorbital: periorbital findings normal Eyelids: Yes eyelids normal Pupils: Equal, round and reactive pupils present EOM: EOMs intact bilaterally Neck Neck: Yes normal visual inspection, Yes full ROM and Yes no lymphadenopathy Chest Chest palpation & inspection: normal inspection of the chest Resp Effort & Inspection: normal respiratory effort and able to speak in complete sentences GI Other: abdominal distention Skin Other: jaundice Neuro General: patient oriented x3 and moves all extremities Cranial nerves: Yes Equal, round and reactive pupils present Cognition (Neuro): normal cognition Motor exam (neuro): 5/5 motor strength present throughout Sensory Exam: Normal double simultaneous stimulation for sensation Coordination: [id number] test normal Extrem General: Yes normal to inspection, Yes full ROM and Yes capillary refill normal Psych Appearance: grossly normal Mental Status: mental status grossly normal Affect: normal affect Attitude: cooperative Thought process: Normal thought process present Thought content: Normal thought content present Insight: Good insight present (Psych) Course Course Course Narrative: This is a rapid medical exam. Deferred additional HPI, ROS, PE to primary provider. 48 yo male with history of non-alcoholic liver cirrhosis here with concern for outpatient paracentesis which was abnormal. Per patient Dr micthell informed him that his paracentesis as abnormal and there was a concern for infection. Patient reports some abdominal soreness. No pain, fever or vomiting. Will obtain labs including blood cultures/lactic acid. Dr Mitchell sent outpatient levaquin for patient. VSS. Medical Decision Making Medical Decision Making MDM Narrative: Patient is a 48 year old assigned male at with a history of liver disease presenting to the emergency department today with abdominal pain and possible SBP. Patient's physical exam was as noted in the physical exam portion of this note. Patient's blood work showed a chronically elevated WBC count and chronically elevated LFTs. Patients paracentesis from 08/07/2023 showed 6.571 WBc and 72 neutrophils. Patient's clinical presentation is not consistent with sepsis (@1700). Patient was given IV ceftriaxone. I spoke to the hospitalist team who agreed to admission. I explained my physical exam findings as well as all test results to the patient. I answered all questions asked by the patient. Patient verbalized agreement and understanding with this treatment plan and admission. Differential Diagnosis Differential Diagnoses: The differential diagnosis associated with the presentation includes Spontaneous bacterial peritonitis Abdominal distention Jaundice Chronic liver failure Chronic liver disease Admission/Observation Consideration of admission/observation: Escalation of care including admission/observation considered Patient admitted. Consult Healthcare Provider Management of the patient was discussed with: Hospitalist (Agreed to admission.) Lab Data [facility] [place] Lab Attestation statement: I reviewed the patient's lab results. My interpretation of these results are in the MDM rationale portion of this note. 08/08/23 14:36 08/08/23 14:36 Labs: Lab Results 08/08/23 08/08/23 Range/Units 14:36 17:00 WBC 12.8 H (4.8-10.8) X10*3/uL RBC 4.34 L (4.60-5.80) X10*6/uL Hgb 12.4 L (14.0-18.0) g/dl Hct 36.1 L (42.0-52.0) % MCV 83.2 (80.0-98.0) fL MCH 28.6 (27.0-33.0) pg MCHC 34.3 (31.0-36.0) g/dl RDW 23.9 H (11.0-16.0) % Plt Count 173 (160-400) X10*3/uL MPV 10.3 (9.4-12.4) fL Immature Gran % (Auto) 1.0 H (0.0-0.4) % Neut % (Auto) 87.9 H (45-73) % Lymph % (Auto) 3.9 L (20-40) % [place] % (Auto) 6.8 (2-11) % Eos % (Auto) 0.3 (0-4) % Baso % (Auto) 0.1 (0-2) % Lymph # (Auto) 0.5 L (1.2-4.9) X10*3/uL [place] # (Auto) 0.9 (0.1-1.2) X10*3/uL Eos # (Auto) 0.0 (0.0-0.4) X10*3/uL Baso # (Auto) 0.0 (0.0-0.2) X10*3/uL Abs Immat Gran (auto) 0.13 H (0.00-0.03) X10*3/uL Absolute Neuts (auto) 11.3 H (2.0-8.3) x10*3/uL Absolute Nucleated RBC 0.000 (0.0-0.012) X10*3/uL Nucleated RBC % (auto) 0.0 (0.0-0.2) /100WBC PT 17.1 H (11.1-13.3) SEC INR 1.4 H (0.9-1.1) Sodium 139 (135-145) mmol/L Potassium 4.2 (3.3-5.1) mmol/L Chloride 107 (96-108) mmol/L Carbon Dioxide 20 L (22-29) mmol/L Anion Gap 16 (12-20) BUN 23 H (9-16) mg/dL Creatinine 0.95 (0.5-1.4) mg/dL Estim Creat Clear Calc 106.6 Estimated GFR > 60 Random Glucose 134 H (60-115) mg/dL Lactic Acid 2.3 H* (0.5-2.0) mmol/L Lactic Acid F/U @ 2Hr 2.0 (0.5-2.0) mmol/L Calcium 8.8 (8.4-10.2) mg/dL Total Bilirubin 15.1 H (0.0-1.0) mg/dL Direct Bilirubin 11.5 H (0.0-0.5) mg/dL AST 35 (5-37) U/L ALT 43 H (0-40) U/L Alkaline Phosphatase 287 H (39-117) U/L Total Protein 6.6 (6.5-8.0) g/dL Albumin 2.8 L (3.5-5.0) g/dL External Record Review External record reviewed: Office record, Outpatient record and Prior outpatient labs Medications Administered Generic Name Dose Route Start Last Admin Trade Name Freq PRN Reason Stop Dose Admin Heparin Sodium (Porcine) 5,000 unit 08/08/23 18:30 08/08/23 19:13 Heparin Sodium,Porcine 5,000 Unit/Ml Vial SUBCUT 5,000 unit Q12H ABDIEL Administration Discontinued Medications Generic Name Dose Route Start Last Admin Trade Name Freq PRN Reason Stop Dose Admin Ceftriaxone Sodium 2 gm/ 50 mls @ 100 mls/hr 08/08/23 15:51 08/08/23 19:11 Sodium Chloride IV 08/08/23 16:20 Infused ONCE ONE Infusion Critical Care Time Critical Care Time Critical Care Time: Yes Total Critical Care Time: 45 Attestation: I spent 45 minutes of Critical Care Time with this patient. This does not include time spent on separately reported billable procedures. Discharge Plan Discharge Clinical Impression: SBP (spontaneous bacterial peritonitis) Patient Disposition: Admitted As Inpatient
[2023-08-08 14:42] LABS: MANUAL DIFF FLAG NO
[2023-08-08 14:44] LABS: Eosinophils Percent Auto 0.3 % (0-4); Mean Corpuscular HGB Conc 34.3 g/dl (31.0-36.0); SCAN SMEAR FLAG 1
[2023-08-08 14:46] LABS: Basophils Percent Auto 0.1 % (0-2); Hematocrit 36.1 % (42.0-52.0); Hemoglobin 12.4 g/dl (14.0-18.0); Imm Gran Abs Auto 0.13 X10*3/uL (0.00-0.03); Lymphocytes Absolute Auto 0.5 X10*3/uL (1.2-4.9); Lymphocytes Percent Auto 3.9 % (20-40); Mean Corpuscular Hemoglobin 28.6 pg (27.0-33.0); Mean Corpuscular Volume 83.2 fL (80.0-98.0); Mean Platelet Volume 10.3 fL (9.4-12.4); Monocytes Absolute Auto 0.9 X10*3/uL (0.1-1.2); Monocytes Percent Auto 6.8 % (2-11); Neutrophils Absolute Auto 11.3 x10*3/uL (2.0-8.3); Neutrophils Percent Auto 87.9 % (45-73); Platelet Count 173 X10*3/uL (160-400); Red Blood Count 4.34 X10*6/uL (4.60-5.80); Red Cell Distribution Width 23.9 % (11.0-16.0); White Blood Count 12.8 X10*3/uL (4.8-10.8)
[2023-08-08 14:51] LABS: PLT ABN DIST 1
[2023-08-08 14:53] LABS: INTERNATIONAL NORM RATIO 1.4 (0.9-1.1); Prothrombin Time 17.1 SEC (11.1-13.3)
[2023-08-08 14:59] LABS: Alanine Aminotransferase 43 U/L (0-40); Albumin Level 2.8 g/dL (3.5-5.0); Alkaline Phosphatase 287 U/L (39-117); Anion Gap 16 (12-20); Aspartate Amino Transferase 35 U/L (5-37); Bilirubin Direct 11.5 mg/dL (0.0-0.5); Bilirubin Total 15.1 mg/dL (0.0-1.0); Blood Urea Nitrogen 23 mg/dL (9-16); Calcium 8.8 mg/dL (8.4-10.2); Carbon Dioxide 20 mmol/L (22-29); Chloride 107 mmol/L (96-108); Creatinine Clr Calc Pharmacy 106.6; Estimated Glomerular Filt Rate > 60; Glucose Random 134 mg/dL (60-115); Potassium 4.2 mmol/L (3.3-5.1); Sodium 139 mmol/L (135-145); Total Protein 6.6 g/dL (6.5-8.0)
[2023-08-08 15:04] LABS: Lactic Acid 2.3 mmol/L (0.5-2.0)
[2023-08-08 16:41] LABS: Reflex Lactate? Lactic Acid Added
[2023-08-08] MEDS: cefTRIAXone sodium 2 GM in 0.9 % Sodium Chloride 50 ML IV (17:21)
--- NOTE | 2023-08-08 18:30 | P.HPHOSP_ITS ---
History of Present Illness Date of Service: 08/08/23 Attending physician on admission: Robinson Reed Chief Complaint: sbp 48-year-old male with history of moderate persistent asthma, pulmonary fibrosis following COVID-19, COVID induced cholangiopathy, GERD, myofascial pain syndrome, history of type 2 diabetes following prolonged steroid use presented to the ED earlier today at the recommendation of his gastroenterologists due to concern for SBP. The patient underwent therapeutic paracentesis yesterday for his ascites. He endorses chills but no fevers and had a single episode of nausea but no vomiting. He does continue to experience shortness of breath associated with the ascites. Peritoneal fluid analysis significant for 6.5 million white blood cell count with 72% neutrophils. On arrival, vitals stable although blood pressure soft. He has the leukocytosis of 12.8 which appears chronic. Renal function normal, electrolyte levels normal. Initial lactic acid 2.3, repeat 2.0. Total bilirubin 15.1, consistent with baseline. Direct bilirubin 11.5. AST 35, ALT 43, alkaline phosphatase 287. Albumin 2.8. In the ED, given 2 g IV ceftriaxone. Review of Systems 2 Review of Systems: General: No fevers, malaise, unintentional weight loss HEENT: No blurred vision, diplopia. No sore throat, nasal congestion, rhinorrhea, sinus pain, ear pain Cardiovascular: No chest pain, palpitations, or leg edema Respiratory: +sob. No wheezing, cough GI: +abd pain, +nausea. No vomiting, diarrhea, constipation, melena, hematochezia : No dysuria, hematuria, increased urinary frequency, decreased urinary output MSK: No myalgia, back pain Neuro: No headaches, weakness, paresthesias Skin: No rashes or lesions [facility] Medical History Myofascial pain syndrome GERD (gastroesophageal reflux disease) Pulmonary fibrosis History of type 2 diabetes mellitus Hepatic cirrhosis Ascites COVID-19 Asthma Surgical History Hx of tracheostomy History of left inguinal hernia repair Hx of cholecystectomy History of ERCP Social History Are you a primary wild animal caretaker to a significant other at home: No Patient Tobacco Use Status: Never used Tobacco Advance Directives: No Advance Directives Information Provided: No Meds Allergies Allergy/AdvReac Type Severity Reaction Status Date / Time amoxicillin Allergy Hives Verified 12/25/21 08:31 meropenem Allergy Nose Bleed Verified 12/25/21 08:31 quetiapine [From Seroquel] Allergy Unknown Verified 12/25/21 08:31 Active Medications: Current Medications Acetaminophen (Acetaminophen 325 Mg Tablet) 650 mg PO Q6H PRN PRN Reason: Pain, Mild (Pain Scale 1-3) Docusate Sodium (Docusate Sodium 100 Mg Capsule) 100 mg PO DAILY PRN PRN Reason: Constipation Heparin Sodium (Porcine) (Heparin Sodium,Porcine 5,000 Unit/Ml Vial) 5,000 unit SUBCUT Q12H ABDIEL Ceftriaxone Sodium 2 gm/ (Sodium Chloride) 50 mls @ 100 mls/hr IV Q24H ABDIEL Ondansetron HCl (Ondansetron Hcl 4 Mg/2 Ml Vial) 4 mg IVPUSH Q8H PRN PRN Reason: Nausea and Vomiting Sodium Chloride (0.9 % Sodium Chloride Flush 3 Ml Syringe) 3 ml IVFLUSH QSHIFT [facility] Home Medications Medication Instructions Recorded Confirmed Last Taken Type dicyclomine 10 mg capsule 10 mg PO QID PRN abdominal cramps 07/24/23 08/08/23 Unknown History fluticasone 250 mcg-salmeterol 50 1 ea inhalation BID 07/24/23 08/08/23 08/07/23 History mcg/dose blistr powdr for inhalation (Advair Diskus) gabapentin 600 mg tablet 600 mg PO TID 07/24/23 08/08/23 08/07/23 History montelukast 10 mg tablet 10 mg PO QPM 07/24/23 08/08/23 08/07/23 History spironolactone 25 mg tablet 50 mg PO DAILY 07/24/23 08/08/23 08/07/23 History umeclidinium 62.5 mcg/actuation 1 inh inhalation DAILY 07/24/23 08/08/23 08/07/23 History blister powder for inhalation (Incruse Ellipta) ursodiol 500 mg tablet 500 mg PO TID 07/24/23 08/08/23 08/07/23 History furosemide 20 mg tablet 40 mg PO DAILY 08/07/23 08/08/23 08/07/23 History albuterol sulfate 2.5 mg/3 mL 2.5 mg inhalation Q6H PRN wheezing 08/08/23 08/08/23 Unknown History (0.083 %) solution for nebulization albuterol sulfate 90 mcg/actuation 1 puff inhalation Q6H PRN wheezing 08/08/23 08/08/23 Unknown History aerosol inhaler (Ventolin HFA) baclofen 10 mg tablet 10 mg PO TID 08/08/23 08/08/23 Unknown History cabergoline 0.5 mg tablet 0.25 mg PO MOTH 08/08/23 08/08/23 08/06/23 History cetirizine 10 mg tablet 10 mg PO DAILY 08/08/23 08/08/23 Unknown History cholecalciferol (vitamin D3) 10 20 mcg PO DAILY 08/08/23 08/08/23 Unknown History mcg (400 unit) tablet (Vitamin D3) dupilumab 300 mg/2 mL subcutaneous 300 mg subcut Q2W 08/08/23 08/08/23 08/06/23 History pen injector (Dupixent) fluconazole 100 mg tablet 100 mg PO DAILY 08/08/23 08/08/23 Unknown History fluticasone propionate 50 2 spray intranasal DAILY 08/08/23 08/08/23 Unknown History mcg/actuation nasal spray,suspension hydrocortisone 5 mg tablet 5 mg PO DAILY 08/08/23 08/08/23 Unknown History hydrocortisone 5 mg tablet 10 mg PO QAM 08/08/23 08/08/23 Unknown History lactulose 10 gram/15 mL oral 30 ml PO DAILY PRN Constipation 08/08/23 08/08/23 Unknown History solution melatonin 5 mg tablet 5 mg PO BEDTIME insomnia 08/08/23 08/08/23 Unknown History midodrine 5 mg tablet 10 mg PO Q8H PRN SBP <100 mmHg 08/08/23 08/08/23 Unknown History mirtazapine 7.5 mg tablet 7.5 mg PO BEDTIME 08/08/23 08/08/23 08/07/23 History multivitamin with folic acid 400 1 tab PO DAILY 08/08/23 08/08/23 Unknown History mcg tablet (Daily-Nathaniel (with folic acid)) pantoprazole 40 mg tablet,delayed 40 mg PO BEDTIME 08/08/23 08/08/23 Unknown History release sennosides 8.6 mg tablet (senna) 8.6 mg PO BID PRN constipation 08/08/23 08/08/23 Unknown History Physical Exam 2 Vital Signs and Narrative: Vital Signs: Last Vital Signs Temp 97.3 F 08/08/23 14:18 Pulse 94 08/08/23 14:18 Resp 17 08/08/23 14:18 BP 109/69 08/08/23 14:18 Pulse Ox 99 08/08/23 14:18 O2 Del Method Room Air 08/08/23 14:18 BMI result Body Mass Index 26.7 Constitutional - Awake and Alert, No apparent distress Eyes - PERRLA, EOMI, scleral icterus Cardiovascular - S1S2, RRR, No edema Respiratory - Normal lung expansion, Normal respiratory effort, No respiratory distress, CTA bilaterally Gastrointestinal - mild diffuse ttp with +fluid wave. ND; +BS; No rebound or guarding Extremities - no calf tenderness bilaterally, no swelling Skin - Warm/Dry, jaundiced Neurological - Alert & oriented x3 Psychological - Appropriate affect Results Labs 08/08/23 14:36 08/08/23 14:36 Labs: Laboratory Results - last 24 hr 08/08/23 08/08/23 14:36 17:00 MCV 83.2 MCH 28.6 MCHC 34.3 RDW 23.9 H Plt Count 173 MPV 10.3 Immature Gran % (Auto) 1.0 H Neut % (Auto) 87.9 H Lymph % (Auto) 3.9 L [place] % (Auto) 6.8 Eos % (Auto) 0.3 Baso % (Auto) 0.1 Lymph # (Auto) 0.5 L [place] # (Auto) 0.9 Eos # (Auto) 0.0 Baso # (Auto) 0.0 Abs Immat Gran (auto) 0.13 H Absolute Neuts (auto) 11.3 H Absolute Nucleated RBC 0.000 Nucleated RBC % (auto) 0.0 PT 17.1 H INR 1.4 H Anion Gap 16 Estim Creat Clear Calc 106.6 Estimated GFR > 60 Random Glucose 134 H Lactic Acid 2.3 H* Lactic Acid F/U @ 2Hr 2.0 Calcium 8.8 Total Bilirubin 15.1 H Direct Bilirubin 11.5 H AST 35 ALT 43 H Alkaline Phosphatase 287 H Total Protein 6.6 Albumin 2.8 L Assessment and Plan (1) SBP (spontaneous bacterial peritonitis): Status: Acute Plan 48-year-old male with history of moderate persistent asthma, pulmonary fibrosis following COVID-19, non alcoholic cirrhosis, GERD, myofascial pain syndrome, history of type 2 diabetes following prolonged steroid use admitted for further management of SBP. # spontaneous bacterial peritonitis with severe sepsis -therapeutic paracentesis performed yesterday -peritoneal fluid with 6.5 million WBC, 77% neutrophils -WBC 12.8, mildly tachycardic at 94, acute lactic acidosis of 2.3 improved to 2.0. No hypotension -2 g IV ceftriaxone (initiated 08/08) -gastroenterology consult -follow CBC, cultures # non alcoholic hepatic cirrhosis with ascites -due to COVID induced cholangiopathy vs meropenem -continue Lasix and furosemide -continue lactulose -continue midodrine for blood pressure support -Follows [place] Dr. Mitchell and [facility] [place] # moderate persistent asthma/pulmonary fibrosis -on Dupixent -continue Advair, Incruse Ellipta, albuterol p.r.n. # adrenal insufficiency -continue steroids # history of [id number] type 2 diabetes -due to prednisone use for treatment of pulmonary fibrosis -no longer on medications, last hemoglobin A1c 4.9% # GERD -continue PPI # mood disorder -continue Remeron DVT prophylaxis- heparin Full code Patient requires inpatient stay at least 2 midnights for management of SBP requiring IV antibiotics and close monitoring as well as expert consultation Time Spent With Patient Time: Total time managing care of this patient today ____ minutes. Quality Stroke Does the patient have a stroke diagnosis?: No VTE Prior VTE?: No VTE Risk Level:: Medical - moderate - high VTE Device Contraindication: Treatment Not Indicated VTE Drug Contraindication: N/A - Med Ordered
[2023-08-08 18:35] VITALS: BP 105/68; PULSE 71; RESP 16; TEMP 36.6; O2SAT 99
--- NOTE | 2023-08-08 18:45 | PHA.MEDREC ---
Pharmacy Consult ? Medication Reconciliation Pharmacy has completed the medication reconciliation. spoke with patient and family member to confirm medications. They had a list from home. The lasix increased to 40 mg and the spironolactone increased to 50 mg. They have a prescription for midodrine prn for SBP <100 but they report not having to use it. They reported about another week left for the fluconazole treatment. They verified that the dupixent is given every 2 weeks on and he had it this past as well. they verified cabergoline is 1/2 tabs on and . He has a prescription for Wixela but has not started it yet and is still using the Advair. They report starting Mirtazepine last night (1st dose) at bedtime. They reported that patient took all of his morning and afternoon medications but not the night time ones today.
[2023-08-08] MEDS: Heparin Sodium,Porcine 5,000 UNIT/ML VIAL 5000 UNIT SUBCUT (19:13)
--- NOTE | 2023-08-08 21:19 | PC.NURSE ---
report given, will message transport to bring upstairs.
[2023-08-08 21:32] VITALS: BP 105/67; PULSE 77; RESP 14; TEMP 36.6; O2SAT 99
[2023-08-08 22:00] VITALS: BMI 26.8
[2023-08-08] MEDS: Gabapentin 600 MG TABLET PO (23:20)
[2023-08-08] MEDS: Montelukast Sodium 10 MG TABLET PO (23:20)
[2023-08-08] MEDS: Baclofen 10 MG TABLET PO (23:20)
[2023-08-08] MEDS: Mirtazapine 7.5 MG TABLET PO (23:20)
[2023-08-08] MEDS: 0.9 % Sodium Chloride Flush 3 ML SYRINGE IVFLUSH (23:22)
[2023-08-09 03:49] VITALS: BP 103/59; PULSE 91; RESP 16; TEMP 36.5; O2SAT 98
[2023-08-09] MEDS: Heparin Sodium,Porcine 5,000 UNIT/ML VIAL 5000 UNIT SUBCUT (05:49)
[2023-08-09 06:40] LABS: MANUAL DIFF FLAG NO
[2023-08-09 06:55] LABS: Basophils Percent Auto 0.3 % (0-2); Eosinophils Absolute Auto 0.2 X10*3/uL (0.0-0.4); Eosinophils Percent Auto 1.3 % (0-4); Hematocrit 33.2 % (42.0-52.0); Hemoglobin 11.4 g/dl (14.0-18.0); Imm Gran Abs Auto 0.18 X10*3/uL (0.00-0.03); Imm Gran Pct Auto 1.5 % (0.0-0.4); Lymphocytes Percent Auto 8.4 % (20-40); Mean Corpuscular HGB Conc 34.3 g/dl (31.0-36.0); Mean Corpuscular Hemoglobin 28.4 pg (27.0-33.0); Mean Corpuscular Volume 82.8 fL (80.0-98.0); Monocytes Absolute Auto 1.2 X10*3/uL (0.1-1.2); Neutrophils Absolute Auto 9.7 x10*3/uL (2.0-8.3); Neutrophils Percent Auto 78.5 % (45-73); Platelet Count 184 X10*3/uL (160-400); Red Blood Count 4.01 X10*6/uL (4.60-5.80); Red Cell Distribution Width 23.8 % (11.0-16.0); White Blood Count 12.4 X10*3/uL (4.8-10.8)
[2023-08-09 07:09] LABS: Alanine Aminotransferase 39 U/L (0-40); Albumin Level 2.5 g/dL (3.5-5.0); Alkaline Phosphatase 258 U/L (39-117); Anion Gap 14 (12-20); Aspartate Amino Transferase 38 U/L (5-37); Bilirubin Total 11.9 mg/dL (0.0-1.0); Blood Urea Nitrogen 23 mg/dL (9-16); Calcium 8.5 mg/dL (8.4-10.2); Carbon Dioxide 22 mmol/L (22-29); Chloride 107 mmol/L (96-108); Creatinine Clr Calc Pharmacy 106.6; Estimated Glomerular Filt Rate > 60; Glucose Random 103 mg/dL (60-115); Sodium 139 mmol/L (135-145); Total Protein 5.9 g/dL (6.5-8.0)
[2023-08-09 07:49] VITALS: BP 104/59; PULSE 83; RESP 18; TEMP 36.3; O2SAT 96
[2023-08-09] MEDS: Fluticasone/Vilanterol 100/25 BLST.W.DEV 1 PUFF INHALE (08:23)
[2023-08-09 08:28] VITALS: PULSE 82; RESP 14; O2SAT 96
[2023-08-09] MEDS: Loratadine 10 MG TABLET PO (09:25)
[2023-08-09] MEDS: Gabapentin 600 MG TABLET PO (09:25)
[2023-08-09] MEDS: Baclofen 10 MG TABLET PO (09:25)
[2023-08-09] MEDS: Fluconazole 100 MG TABLET PO (09:25)
[2023-08-09] MEDS: Multivitamin TABLET 1 TAB PO (09:25)
[2023-08-09] MEDS: Hydrocortisone 10 MG TABLET 5 MG PO (09:26)
[2023-08-09] MEDS: Cholecalciferol (Vitamin D3) 10 MCG TABLET 20 MCG PO (09:26)
[2023-08-09] MEDS: Furosemide 40 MG TABLET PO (09:26)
[2023-08-09] MEDS: Spironolactone 25 MG TABLET 50 MG PO (09:27)
[2023-08-09] MEDS: 0.9 % Sodium Chloride Flush 3 ML SYRINGE IVFLUSH (09:27)
[2023-08-09] MEDS: Albumin Human 25 % 100 ML IV (09:42)
--- NOTE | 2023-08-09 09:55 | P.DS_ITS ---
DS: Providers Provider Date of Service: 08/09/23 Date of admission: 08/08/23 18:17 Primary care physician: Chet Arcos MD Consults: 08/08/23 18:22 Consult to Gastroenterology Routine Consulting Provider: Sp Mitchell Reason for consultation: sbp DS: Diagnosis Discharge Diagnosis (1) SBP (spontaneous bacterial peritonitis): Status: Acute DS: Summary Hospital Course Hospital Course: from initial hpi: 48-year-old male with history of moderate persistent asthma, pulmonary fibrosis following COVID-19, COVID induced cholangiopathy, GERD, myofascial pain syndrome, history of type 2 diabetes following prolonged steroid use presented to the ED earlier today at the recommendation of his gastroenterologists due to concern for SBP. The patient underwent therapeutic paracentesis yesterday for his ascites. He endorses chills but no fevers and had a single episode of nausea but no vomiting. He does continue to experience shortness of breath associated with the ascites. Peritoneal fluid analysis significant for 6.5 million white blood cell count with 72% neutrophils. On arrival, vitals stable although blood pressure soft. He has the leukocytosis of 12.8 which appears chronic. Renal function normal, electrolyte levels normal. Initial lactic acid 2.3, repeat 2.0. Total bilirubin 15.1, consistent with baseline. Direct bilirubin 11.5. AST 35, ALT 43, alkaline phosphatase 287. Albumin 2.8. In the ED, given 2 g IV ceftriaxone. hospital course: Patient was admitted for spontaneous bacterial peritonitis. Doubt severe sepsis, lactic acid likely due to liver disease. Was treated with IV ceftriaxone, will be transitioned to p.o. Levaquin as outpatient and follow-up with GI. Cultures did not grow anything. 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 Mitchell and [facility]. For moderate persistent asthma/pulmonary fibrosis is continue on Dupixent, Advair, ellipta, albuterol as needed. For adrenal insufficiency days continue hydrocortisone. Patient has history of diabetes but no longer on medication and last A1c was 4.9. fOr GERD his continue PPI for mood disorders continue Remeron. Patient is feeling better will be discharged home Time Spent with Patient Time attestation: Total time managing care of this patient today ____ minutes. Discharge coordination time: Greater than 30 minutes Quality: Safe Use of Opioids Does Pt have an Active Cancer Diagnosis on the Problem List?: No Quality: Stroke Does the patient have a stroke diagnosis?: No Physical Exam Vital Signs: Vital Signs: Last Vital Signs Temp 97.3 F 08/09/23 07:49 Pulse 82 08/09/23 08:28 Resp 14 08/09/23 08:28 BP 104/59 L 08/09/23 07:49 Pulse Ox 96 08/09/23 07:49 O2 Del Method Room Air 08/09/23 07:49 BMI result Body Mass Index 26.8 jaundiced, alert oriented times 3, no acute distress, abd soft non tender DS: Data Data Completed and Pending Labs on day of discharge: Laboratory Results - last 24 hr 08/08/23 08/08/23 08/09/23 14:36 17:00 06:32 WBC 12.8 H 12.4 H RBC 4.34 L 4.01 L Hgb 12.4 L 11.4 L Hct 36.1 L 33.2 L MCV 83.2 82.8 MCH 28.6 28.4 MCHC 34.3 34.3 RDW 23.9 H 23.8 H Plt Count 173 184 MPV 10.3 Not Reportable Immature Gran % (Auto) 1.0 H 1.5 H Neut % (Auto) 87.9 H 78.5 H Lymph % (Auto) 3.9 L 8.4 L [place] % (Auto) 6.8 10.0 Eos % (Auto) 0.3 1.3 Baso % (Auto) 0.1 0.3 Lymph # (Auto) 0.5 L 1.0 L [place] # (Auto) 0.9 1.2 Eos # (Auto) 0.0 0.2 Baso # (Auto) 0.0 0.0 Abs Immat Gran (auto) 0.13 H 0.18 H Absolute Neuts (auto) 11.3 H 9.7 H Absolute Nucleated RBC 0.000 0.000 Nucleated RBC % (auto) 0.0 0.0 PT 17.1 H INR 1.4 H Sodium 139 139 Potassium 4.2 4.0 Chloride 107 107 Carbon Dioxide 20 L 22 Anion Gap 16 14 BUN 23 H 23 H Creatinine 0.95 0.95 Estim Creat Clear Calc 106.6 106.6 Estimated GFR > 60 > 60 Random Glucose 134 H 103 Lactic Acid 2.3 H* Lactic Acid F/U @ 2Hr 2.0 Calcium 8.8 8.5 Total Bilirubin 15.1 H 11.9 H Direct Bilirubin 11.5 H AST 35 38 H ALT 43 H 39 Alkaline Phosphatase 287 H 258 H Total Protein 6.6 5.9 L Albumin 2.8 L 2.5 L Discharge Plan Discharge Anticipated Discharge Date/Time: 08/09/23 09:53 Patient Disposition: Home, Self-Care Discharge Diagnosis: sbp Referrals: Chet Arcos MD [Primary Care Provider] - 1 Week Sp Mitchell MD [Physician] - 1 Week Discharge Medications: Continued fluticasone propion-salmeterol [Advair Diskus] 250-50 mcg/dose blister with device 1 ea INHALATION BID gabapentin 600 mg tablet 600 mg PO TID spironolactone 25 mg Tablet 50 mg PO DAILY montelukast 10 mg tablet 10 mg PO QPM dicyclomine 10 mg Capsule 10 mg PO QID PRN (Reason: abdominal cramps) ursodiol 500 mg Tablet 500 mg PO TID Incruse Ellipta 62.5 mcg/actuation Blister With Device 1 inh INHALATION DAILY furosemide 20 mg tablet 40 mg PO DAILY hydrocortisone 5 mg tablet 5 mg PO DAILY Rx Instructions: afternoon hydrocortisone 5 mg tablet 10 mg PO QAM fluconazole 100 mg tablet 100 mg PO DAILY sennosides [senna] 8.6 mg tablet 8.6 mg PO BID PRN (Reason: constipation) albuterol sulfate 2.5 mg /3 mL (0.083 %) solution for nebulization 2.5 mg inhalation Q6H PRN (Reason: wheezing) cetirizine 10 mg tablet 10 mg PO DAILY midodrine 5 mg tablet 10 mg PO Q8H PRN (Reason: SBP <100 mmHg) baclofen 10 mg tablet 10 mg PO TID pantoprazole 40 mg tablet,delayed release (DR/EC) 40 mg PO BEDTIME cabergoline 0.5 mg tablet 0.25 mg PO MOTH albuterol sulfate [Ventolin HFA] 90 mcg/actuation HFA aerosol inhaler 1 puff inhalation Q6H PRN (Reason: wheezing) fluticasone propionate 50 mcg/actuation spray,suspension 2 spray intranasal DAILY cholecalciferol (vitamin D3) [Vitamin D3] 10 mcg (400 unit) tablet 20 mcg PO DAILY mirtazapine 7.5 mg Tablet 7.5 mg PO BEDTIME lactulose 10 gram/15 mL solution 30 ml PO DAILY PRN (Reason: Constipation) melatonin 5 mg tablet 5 mg PO BEDTIME multivitamin with folic acid [Daily-Nathaniel (with folic acid)] 400 mcg tablet 1 tab PO DAILY Dupixent Pen 300 mg/2 mL pen injector 300 mg subcut Q2W Rx Instructions: Discharge Orders: Discharge Order (Routine); Ordered 08/09/23 Ordered By: Robinson Reed Diet: Advance to usual diet Activity on Discharge: As tolerated Stand Alone Forms: Patient Portal Discharge page Care Plan Goals: recovery Health Concerns: sbp Plan of Treatment: jerome, follow up with gi Assessment: see above
[2023-08-09] MEDS: Fluticasone Propionate Nasal 16 GM SPRAY 2 SPRAY NOSTRIL-B (10:25)
[2023-08-09] MEDS: cefTRIAXone sodium 2 GM in 0.9 % Sodium Chloride 50 ML IV (10:39)
--- NOTE | 2023-08-09 12:08 | PM.GICN ---
History of Present Illness Data of Consult Service Date: 08/09/23 Requesting physician: Joyce Mills Primary Care Provider: Chet Arcos MD [facility] Reason for consult: Spontaneous bacterial peritonitis 48 YM with moderate persistent asthma, pulmonary fibrosis following COVID-19, COVID induced cholangiopathy, GERD, myofascial pain syndrome, type 2 diabetes following prolonged steroid seen at [facility] on 08/08/23 at the recommendation of Dr Mitchell (his gastroenterologists) due to concern for SBP. The patient underwent therapeutic paracentesis on 08/07/23 for his ascites and AF analysis showed SBP. Pt complains of chills for the past 7 to 10 days and denies fevers or sweating. He had a single episode of nausea and no vomiting. He does continue to experience shortness of breath associated with the ascites. Last therapeutic paracenteses was 7 weeks ago. Patient reports worsening abdominal distension 5 to 5.5 weeks after paracentesis. He has loose stools due to lactulose and denies black stools or rectal bleeding. Patient had severe COVID infection 2.5 years ago and had to be intubated and hospitalized at [facility]. He was diagnosed with cirrhosis due to COVID induced cholangiopathy versus Meropenem Pt is followed by Dr Mitchell and also at the Liver Transplant Clinic at [facility] - has not been listed for OLT since his MELD score has improved. Peritoneal fluid analysis significant for 6.5 million white blood cell count with 72% neutrophils. On arrival, vitals stable although blood pressure soft. He has the leukocytosis of 12.8 which appears chronic. Renal function normal, electrolyte levels normal. Initial lactic acid 2.3, repeat 2.0. Total bilirubin 15.1, consistent with baseline. Direct bilirubin 11.5. AST 35, ALT 43, alkaline phosphatase 287. Albumin 2.8. Pt was given 2 g IV ceftriaxone in the ED and admitted for further management. 08/07/23 ULTRASOUND-GUIDED PARACENTESIS WAS PERFORMED: Using ultrasound guidance, a 5 fr catheter was placed into the ascitic pocket. 6.8 liters of yellow fluid was removed passively. The catheter was then removed. Fluid was sent for analysis. Review of Systems Review of Systems: General: No fevers, malaise, unintentional weight loss HEENT: No blurred vision, diplopia. No sore throat, nasal congestion, rhinorrhea, sinus pain, ear pain Cardiovascular: No chest pain, palpitations, or leg edema Respiratory: +sob. No wheezing, cough GI: +abd pain, +nausea. No vomiting, diarrhea, constipation, melena, hematochezia : No dysuria, hematuria, increased urinary frequency, decreased urinary output MSK: No myalgia, back pain Neuro: No headaches, weakness, paresthesias Skin: No rashes or lesions PMFSH Past Medical History Medical History Myofascial pain syndrome GERD (gastroesophageal reflux disease) Pulmonary fibrosis History of type 2 diabetes mellitus Hepatic cirrhosis Ascites COVID-19 Asthma Surgical History Surgical History Hx of tracheostomy History of left inguinal hernia repair Hx of cholecystectomy History of ERCP Social History Social History Household Members: Spouse and Children Housing: House Are you a primary acute care nurse to a significant other at home: No Do you presently have visiting nurse or other home services: Yes Alcohol intake: former Patient Tobacco Use Status: Never used Tobacco service: No Meds Allergies Allergy/AdvReac Type Severity Reaction Status Date / Time amoxicillin Allergy Hives Verified 12/25/21 08:31 quetiapine [From Seroquel] Allergy Unknown Verified 12/25/21 08:31 meropenem AdvReac Severe liver Verified 08/09/23 09:50 failure Active Medications: Current Medications Acetaminophen (Acetaminophen 325 Mg Tablet) 650 mg PO Q6H PRN PRN Reason: Pain, Mild (Pain Scale 1-3) Albuterol Sulfate (Albuterol Sulfate (0.083%) 2.5 Mg/3 Ml Vial.Neb) 2.5 mg INHALE Q6H PRN PRN Reason: wheezing Albuterol Sulfate (Albuterol Sulfate 90 Mcg 8 Gm Inhaler) 1 puff INHALE Q6H PRN PRN Reason: wheezing Baclofen (Baclofen 10 Mg Tablet) 10 mg PO TID [facility] Last Admin: 08/09/23 09:25 Dose: 10 mg Dicyclomine HCl (Dicyclomine Hcl 10 Mg Capsule) 10 mg PO QID PRN PRN Reason: abdominal cramps Docusate Sodium (Docusate Sodium 100 Mg Capsule) 100 mg PO DAILY PRN PRN Reason: Constipation Fluconazole (Fluconazole 100 Mg Tablet) 100 mg PO DAILY [facility] Last Admin: 08/09/23 09:25 Dose: 100 mg Fluticasone Propionate (Fluticasone Propionate Nasal 16 Gm [place]) 2 spray NOSTRIL-B DAILY [facility] Last Admin: 08/09/23 10:25 Dose: 2 spray Fluticasone/Vilanterol (Fluticasone/Vilanterol 100/25 Blst.W.Dev) 1 puff INHALE RDAILY [facility] Last Admin: 08/09/23 08:23 Dose: 1 puff Furosemide (Furosemide 40 Mg Tablet) 40 mg PO DAILY [facility]; Protocol Last Admin: 08/09/23 09:26 Dose: 40 mg Gabapentin (Gabapentin 600 Mg Tablet) 600 mg PO TID [facility] Last Admin: 08/09/23 09:25 Dose: 600 mg Heparin Sodium (Porcine) (Heparin Sodium,Porcine 5,000 Unit/Ml Vial) 5,000 unit SUBCUT Q12H [facility] Last Admin: 08/09/23 05:49 Dose: 5,000 unit Hydrocortisone (Hydrocortisone 10 Mg Tablet) 5 mg PO DAILY@1500 [facility] Last Admin: 08/09/23 09:26 Dose: 5 mg Hydrocortisone (Hydrocortisone 10 Mg Tablet) 10 mg PO DAILY [facility] Last Admin: 08/09/23 10:27 Dose: Not Given Lactulose (Lactulose 20 Gm/30 Ml Solution) 20 gm PO DAILY PRN PRN Reason: Constipation Loratadine (Loratadine 10 Mg Tablet) 10 mg PO DAILY [facility] Last Admin: 08/09/23 09:25 Dose: 10 mg Melatonin (Melatonin 3 Mg Tablet) 6 mg PO BEDTIME [facility] Midodrine (Midodrine Hcl 10 Mg Tablet) 10 mg PO Q8H PRN PRN Reason: SBP <100 mmHg Mirtazapine (Mirtazapine 7.5 Mg Tablet) 7.5 mg PO BEDTIME [facility] Last Admin: 08/08/23 23:20 Dose: 7.5 mg Montelukast Sodium (Montelukast Sodium 10 Mg Tablet) 10 mg PO BEDTIME [facility] Last Admin: 08/08/23 23:20 Dose: 10 mg Multivitamins/Vitamin C (Multivitamin Tablet) 1 tab PO DAILY [facility] Last Admin: 08/09/23 09:25 Dose: 1 tab Non-Formulary Medication (Cabergoline) 0.25 mg PO MOTH [facility] Non-Formulary Medication (Ursodiol) 500 mg PO TID [facility] Omeprazole (Omeprazole 20 Mg Capsule.Dr) 20 mg PO BEDTIME [facility] Ondansetron HCl (Ondansetron Hcl 4 Mg/2 Ml Vial) 4 mg IVPUSH Q8H PRN PRN Reason: Nausea and Vomiting Senna (Sennosides 8.6 Mg Tablet) 8.6 mg PO BID PRN PRN Reason: constipation Sodium Chloride (0.9 % Sodium Chloride Flush 3 Ml Syringe) 3 ml IVFLUSH QSHIFT [facility] Last Admin: 08/09/23 09:27 Dose: 3 ml Spironolactone (Spironolactone 25 Mg Tablet) 50 mg PO DAILY [facility]; Protocol Last Admin: 08/09/23 09:27 Dose: 50 mg Tiotropium [place] (Tiotropium [place] 2.5 Mcg Inhaler) 2 puff INHALE RDAILY [facility] Last Admin: 08/09/23 08:23 Dose: 2 puff Vitamin D (Cholecalciferol (Vitamin D3) 10 Mcg Tablet) 20 mcg PO DAILY [facility] Last Admin: 08/09/23 09:26 Dose: 20 mcg Home Medications Medication Instructions Recorded Confirmed Last Taken Type dicyclomine 10 mg capsule 10 mg PO QID PRN abdominal cramps 07/24/23 08/08/23 Unknown History fluticasone 250 mcg-salmeterol 50 1 ea inhalation BID 07/24/23 08/08/23 08/07/23 History mcg/dose blistr powdr for inhalation (Advair Diskus) gabapentin 600 mg tablet 600 mg PO TID 07/24/23 08/08/23 08/07/23 History montelukast 10 mg tablet 10 mg PO QPM 07/24/23 08/08/23 08/07/23 History spironolactone 25 mg tablet 50 mg PO DAILY 07/24/23 08/08/23 08/07/23 History umeclidinium 62.5 mcg/actuation 1 inh inhalation DAILY 07/24/23 08/08/23 08/07/23 History blister powder for inhalation (Incruse Ellipta) ursodiol 500 mg tablet 500 mg PO TID 07/24/23 08/08/23 08/07/23 History furosemide 20 mg tablet 40 mg PO DAILY 08/07/23 08/08/23 08/07/23 History albuterol sulfate 2.5 mg/3 mL 2.5 mg inhalation Q6H PRN wheezing 08/08/23 08/08/23 Unknown History (0.083 %) solution for nebulization albuterol sulfate 90 mcg/actuation 1 puff inhalation Q6H PRN wheezing 08/08/23 08/08/23 Unknown History aerosol inhaler (Ventolin HFA) baclofen 10 mg tablet 10 mg PO TID 08/08/23 08/08/23 Unknown History cabergoline 0.5 mg tablet 0.25 mg PO MOTH 08/08/23 08/08/23 08/06/23 History cetirizine 10 mg tablet 10 mg PO DAILY 08/08/23 08/08/23 Unknown History cholecalciferol (vitamin D3) 10 20 mcg PO DAILY 08/08/23 08/08/23 Unknown History mcg (400 unit) tablet (Vitamin D3) dupilumab 300 mg/2 mL subcutaneous 300 mg subcut Q2W 08/08/23 08/08/23 08/06/23 History pen injector (Dupixent) fluconazole 100 mg tablet 100 mg PO DAILY 08/08/23 08/08/23 Unknown History fluticasone propionate 50 2 spray intranasal DAILY 08/08/23 08/08/23 Unknown History mcg/actuation nasal spray,suspension hydrocortisone 5 mg tablet 5 mg PO DAILY 08/08/23 08/08/23 Unknown History hydrocortisone 5 mg tablet 10 mg PO QAM 08/08/23 08/08/23 Unknown History lactulose 10 gram/15 mL oral 30 ml PO DAILY PRN Constipation 08/08/23 08/08/23 Unknown History solution melatonin 5 mg tablet 5 mg PO BEDTIME insomnia 08/08/23 08/08/23 Unknown History midodrine 5 mg tablet 10 mg PO Q8H PRN SBP <100 mmHg 08/08/23 08/08/23 Unknown History mirtazapine 7.5 mg tablet 7.5 mg PO BEDTIME 08/08/23 08/08/23 08/07/23 History multivitamin with folic acid 400 1 tab PO DAILY 08/08/23 08/08/23 Unknown History mcg tablet (Daily-Nathaniel (with folic acid)) pantoprazole 40 mg tablet,delayed 40 mg PO BEDTIME 08/08/23 08/08/23 Unknown History release sennosides 8.6 mg tablet (senna) 8.6 mg PO BID PRN constipation 08/08/23 08/08/23 Unknown History Physical Exam Vital Signs: Vital Signs: Last Vital Signs Temp 97.3 F 08/09/23 07:49 Pulse 82 08/09/23 08:28 Resp 14 08/09/23 08:28 BP 104/59 L 08/09/23 07:49 Pulse Ox 96 08/09/23 07:49 O2 Del Method Room Air 08/09/23 07:49 BMI result Body Mass Index 26.8 jaundiced, alert oriented times 3, no acute distress, abd soft non tender Results Labs 08/09/23 06:32 08/09/23 06:32 Labs: Short CBC 08/08/23 08/09/23 Range/Units 14:36 06:32 WBC 12.8 H 12.4 H (4.8-10.8) X10*3/uL Hgb 12.4 L 11.4 L (14.0-18.0) g/dl Hct 36.1 L 33.2 L (42.0-52.0) % Plt Count 173 184 (160-400) X10*3/uL BMP 08/08/23 08/09/23 14:36 06:32 Sodium 139 139 Potassium 4.2 4.0 Chloride 107 107 Carbon Dioxide 20 L 22 BUN 23 H 23 H Creatinine 0.95 0.95 Calcium 8.8 8.5 Liver Function 08/08/23 08/09/23 Range/Units 14:36 06:32 Total Bilirubin 15.1 H 11.9 H (0.0-1.0) mg/dL Direct Bilirubin 11.5 H (0.0-0.5) mg/dL AST 35 38 H (5-37) U/L ALT 43 H 39 (0-40) U/L Alkaline Phosphatase 287 H 258 H (39-117) U/L Albumin 2.8 L 2.5 L (3.5-5.0) g/dL Assessment and Plan (1) SBP (spontaneous bacterial peritonitis): Status: Acute (2) Cirrhosis of liver with ascites: Status: Acute Plan 48 YM with moderate persistent asthma, pulmonary fibrosis following COVID-19, COVID induced cholangiopathy, GERD, myofascial pain syndrome, type 2 diabetes following prolonged steroid admitted to [facility] 08/08/23 for SBP. The patient underwent therapeutic paracentesis on 08/07/23 for his ascites and AF analysis showed SBP. Last therapeutic paracenteses was 7 weeks ago. Patient reports worsening abdominal distension 5 to 5.5 weeks after paracentesis. Pt is followed by Dr Mitchell and also at the Liver Transplant Clinic at [facility] [place] - has not been listed for OLT since his MELD score has improved. MELD Na score was 25 on admission and improved to 20 today (since TB decreased from 15 to 11.9) RECOMMENDATIONS: 1. Agree with discharging home today on PO levofloxacin 2. Continue furosemide 40 mg and spironolactone 50 mg daily for ascites 3. Continue lactulose for hepatic encephalopathy and ursodiol for cholangiopathy Pt will contact Dr Mitchell's office on Thursday to schedule a FU appt with him Time Spent With Patient Time: Total time managing care of this patient today ____ minutes. Procedures Date of Service Date of Service: 08/09/23
--- NOTE | 2023-08-09 14:12 | MHC.CM.PN ---
PT LIVES WITH HIS AND IS INDEPENDENT WITH CARE NO SERVICES NO DME PCP ON FILE PT WILL DC HOME TODAY WITH NO SERVICES VIA PRIVATE TRANSPORT
== END 2023-08-09 14:37 | disposition home or self-care (01) | DRG 372 ==
LOC: HO.ED 16:23 → HO.EDOVER 18:37 → HO.S3 19:50
PROVIDERS: Nurse Practitioner Family; Admitting Provider Physician Assistant; Emergency Provider Emergency Medicine; PCP Pediatrics; Visit Provider Internal Medicine
DX: K65.2 Spontaneous bacterial peritonitis (principal); E27.40 Unspecified adrenocortical insufficiency; E11.9 Type 2 diabetes mellitus without complications; K21.9 Gastro-esophageal reflux disease without esophagitis; K74.69 Other cirrhosis of liver; J45.40 Moderate persistent asthma, uncomplicated; Z79.51 Long term (current) use of inhaled steroids; Z79.899 Other long term (current) drug therapy
CPT/HCPCS: 36415; 80048; 80053; 80076; 83605; 85025; 85610; 87040; 94640; 99221; 99285; J0696; J1643; P9047

== ENCOUNTER → 2023-08-08 18:17 | Outpatient (BNV) | payer MEDICARE, SELFPAY | PROVIDERS: Admitting Provider Physician Assistant; Emergency Provider Emergency Medicine; PCP Pediatrics; Visit Provider Internal Medicine Gastroenterology | DX: K65.2 Spontaneous bacterial peritonitis (principal); K74.60 Unspecified cirrhosis of liver; R18.8 Other ascites | CPT/HCPCS: 99222 ==

== ENCOUNTER → 2023-08-08 18:17 | Outpatient (BNV) | payer MEDICARE, SELFPAY | PROVIDERS: Admitting Provider Physician Assistant; Emergency Provider Emergency Medicine; PCP Pediatrics; Visit Provider Physician Assistant | DX: K65.2 Spontaneous bacterial peritonitis (principal) | CPT/HCPCS: 99223; 99239 ==

== ENCOUNTER 2023-09-14 13:42 | Outpatient (REF) | payer OTHER, MEDICAID, SELFPAY ==
[2023-09-14 14:04] LABS: MANUAL DIFF FLAG NO
[2023-09-14 14:29] LABS: Basophils Absolute Auto 0.1 X10*3/uL (0.0-0.2); Basophils Percent Auto 0.6 % (0-2); Eosinophils Absolute Auto 0.1 X10*3/uL (0.0-0.4); Eosinophils Percent Auto 0.7 % (0-4); Hematocrit 40.2 % (42.0-52.0); Hemoglobin 12.7 g/dl (14.0-18.0); Imm Gran Abs Auto 0.14 X10*3/uL (0.00-0.03); Lymphocytes Percent Auto 7.5 % (20-40); Mean Corpuscular HGB Conc 31.6 g/dl (31.0-36.0); Mean Corpuscular Hemoglobin 29.2 pg (27.0-33.0); Mean Corpuscular Volume 92.4 fL (80.0-98.0); Mean Platelet Volume 11.1 fL (9.4-12.4); Monocytes Absolute Auto 1.2 X10*3/uL (0.1-1.2); Monocytes Percent Auto 8.8 % (2-11); Neutrophils Absolute Auto 10.9 x10*3/uL (2.0-8.3); Neutrophils Percent Auto 81.4 % (45-73); Platelet Count 163 X10*3/uL (160-400); Red Blood Count 4.35 X10*6/uL (4.60-5.80); White Blood Count 13.4 X10*3/uL (4.8-10.8)
[2023-09-14 14:45] LABS: INTERNATIONAL NORM RATIO 1.2 (0.9-1.1); Prothrombin Time 14.4 SEC (11.1-13.3)
[2023-09-14 14:48] LABS: Partial Thromboplastin Time 31.6 SEC (26.0-36.4)
[2023-09-14 15:10] LABS: Alanine Aminotransferase 58 U/L (0-40); Albumin Level 3.3 g/dL (3.5-5.0); Alkaline Phosphatase 290 U/L (39-117); Anion Gap 9 (12-20); Aspartate Amino Transferase 64 U/L (5-37); Bilirubin Direct 3.4 mg/dL (0.0-0.5); Bilirubin Total 4.5 mg/dL (0.0-1.0); Blood Urea Nitrogen 20 mg/dL (9-16); Calcium 8.9 mg/dL (8.4-10.2); Carbon Dioxide 29 mmol/L (22-29); Chloride 108 mmol/L (96-108); Estimated Glomerular Filt Rate > 60; Glucose Random 107 mg/dL (60-115); Potassium 4.1 mmol/L (3.3-5.1); Sodium 142 mmol/L (135-145); Total Protein 6.9 g/dL (6.5-8.0)
== END 2023-09-14 13:43 | disposition home or self-care (01) ==
LOC: HO.LAB 13:42
PROVIDERS: PCP Pediatrics; Visit Provider Internal Medicine
DX: K74.60 Unspecified cirrhosis of liver (principal)
CPT/HCPCS: 36415; 80048; 80076; 85025; 85610; 85730

== ENCOUNTER 2023-09-16 07:19 | Day surgery (SDC) | payer OTHER, MEDICAID, SELFPAY ==
--- NOTE | ~2023-09-16 | US_ITS ---
ULTRASOUND PARACENTESIS HISTORY: Ascites. Risks and benefits and possible complications were discussed with the patient and consent form was signed. A safe pocket of ascitic fluid was identified using ultrasound guidance, and the overlying skin was marked, prepped, and draped in sterile fashion. 1% lidocaine was used as a local anesthetic for the skin, subcutaneous tissues, and parietal peritoneum. Using ultrasound guidance, a 5 fr catheter was placed into the ascitic pocket. 1.8 liters of clement fluid was removed passively. The catheter was then removed. A few life assurance representative images from before and after the examination were obtained. The procedure was performed by Phi Luke PA-C and supervised by Dr. Hsu. US/US paracentesis abd w/image IMPRESSION: Ultrasound-guided paracentesis as described above. No immediate complications
[2023-09-16 07:58] VITALS: BMI 29.2
[2023-09-16 08:37] LABS: Glucose, Whole Blood 91 mg/dL (60-115)
[2023-09-16] MEDS: Lidocaine HCl 1 % MPF 5 ML VIAL SUBCUT (10:05)
[2023-09-16 10:15] VITALS: BP 107/66; PULSE 76; RESP 16; TEMP 36.4; O2SAT 98
[2023-09-16 10:30] VITALS: BP 126/70; PULSE 70; RESP 16; O2SAT 99
[2023-09-16 10:32] LABS: MN% 82.5 %; PMN% 17.5 %
[2023-09-16 10:33] LABS: RBC Peritoneal Fluid < 0.002 X10*6/uL
[2023-09-16 10:45] VITALS: BP 116/66; PULSE 73; RESP 16; TEMP 36.4; O2SAT 99
[2023-09-16 11:20] LABS: BF Shift QC OK YES; Lymphocyte Peritoneal Fl 13 %; Man Diluent Bkgrd OK YES; Monocytes Peritoneal Fl 5 %; Neutrophils Peritoneal Fluid 23 %; Other Peritioneal Fl 59 %
[2023-09-17 03:39] LABS: Albumin Peritoneal Fluid 0.7 GM/DL; Total Protein Peritoneal Fluid 1.3 GM/DL
== END 2023-09-16 10:53 | disposition home or self-care (01) ==
PROVIDERS: Internal Medicine; PCP Pediatrics; Visit Provider Physician Assistant Surgical
DX: K74.60 Unspecified cirrhosis of liver (principal); R18.8 Other ascites; K76.89 Other specified diseases of liver; J45.909 Unspecified asthma, uncomplicated; Z79.51 Long term (current) use of inhaled steroids; Z79.899 Other long term (current) drug therapy; Z86.16 Personal history of COVID-19
CPT/HCPCS: 49083; 82042; 82947; 84157; 87070; 87073; 87205; 89051; P9047

== ENCOUNTER → 2023-09-16 07:43 | Outpatient (BNV) | payer OTHER, MEDICAID, SELFPAY | PROVIDERS: PCP Pediatrics; Visit Provider Radiology Diagnostic Radiology | DX: K74.60 Unspecified cirrhosis of liver (principal) | CPT/HCPCS: 49083 ==

== ENCOUNTER 2023-12-11 11:10 | Day surgery (SDC) | payer OTHER, SELFPAY ==
--- NOTE | ~2023-12-11 | US_ITS ---
Limited ultrasound of the abdomen History: Ascites. Findings: Limited ultrasound of the abdomen demonstrates trace perihepatic ascites not amenable to percutaneous sampling. A few area representative images saved to PACS. The procedure was performed by Phi Luke PA-C and supervised by Dr. Kelsey. US/US paracentesis abd w/image Impression: Trace perihepatic ascites. Insufficient fluid present for paracentesis. No immediate complications
[2023-12-11 12:22] LABS: INTERNATIONAL NORM RATIO 1.3 (0.9-1.1); Prothrombin Time 16.3 SEC (11.1-13.3)
[2023-12-11 12:26] LABS: Eosinophils Percent Auto 1.3 % (0-4); Imm Gran Abs Auto 0.05 X10*3/uL (0.00-0.03); Imm Gran Pct Auto 0.4 % (0.0-0.4); Mean Corpuscular HGB Conc 34.1 g/dl (31.0-36.0); SCAN SMEAR FLAG 1
[2023-12-11 12:28] LABS: Basophils Absolute Auto 0.1 X10*3/uL (0.0-0.2); Basophils Percent Auto 0.7 % (0-2); Eosinophils Absolute Auto 0.2 X10*3/uL (0.0-0.4); Hematocrit 40.2 % (42.0-52.0); Hemoglobin 13.7 g/dl (14.0-18.0); Lymphocytes Percent Auto 8.4 % (20-40); Mean Corpuscular Hemoglobin 28.4 pg (27.0-33.0); Mean Corpuscular Volume 83.2 fL (80.0-98.0); Mean Platelet Volume 10.2 fL (9.4-12.4); Monocytes Absolute Auto 0.7 X10*3/uL (0.1-1.2); Monocytes Percent Auto 5.7 % (2-11); Neutrophils Absolute Auto 9.9 x10*3/uL (2.0-8.3); Neutrophils Percent Auto 83.5 % (45-73); Platelet Count 205 X10*3/uL (160-400); Red Blood Count 4.83 X10*6/uL (4.60-5.80); Red Cell Distribution Width 23.5 % (11.0-16.0); White Blood Count 11.9 X10*3/uL (4.8-10.8)
[2023-12-11] MEDS: Albumin Human 25 % 100 ML IV (12:39)
[2023-12-11 12:46] LABS: Alanine Aminotransferase 27 U/L (0-40); Albumin Level 3.1 g/dL (3.5-5.0); Alkaline Phosphatase 251 U/L (39-117); Anion Gap 14 (12-20); Aspartate Amino Transferase 49 U/L (5-37); Bilirubin Direct 3.3 mg/dL (0.0-0.5); Blood Urea Nitrogen 18 mg/dL (9-16); Calcium 8.9 mg/dL (8.4-10.2); Carbon Dioxide 24 mmol/L (22-29); Chloride 106 mmol/L (96-108); Estimated Glomerular Filt Rate > 60; Glucose Random 118 mg/dL (60-115); Sodium 140 mmol/L (135-145); Total Protein 7.4 g/dL (6.5-8.0)
[2023-12-11 12:48] LABS: PLT ABN DIST 1
[2023-12-11 12:49] LABS: MANUAL DIFF FLAG NO
[2023-12-11 12:51] VITALS: BMI 30.8
[2023-12-11 13:25] VITALS: BP 102/58; PULSE 82; RESP 16; TEMP 36.6; O2SAT 96
== END 2023-12-11 13:50 | disposition home or self-care (01) ==
LOC: HO.SSS 11:12
PROVIDERS: Physician Assistant Surgical; PCP Pediatrics; Visit Provider Internal Medicine
DX: K74.60 Unspecified cirrhosis of liver (principal); R18.8 Other ascites; Z53.8 Procedure and treatment not carried out for other reasons; E11.9 Type 2 diabetes mellitus without complications; K21.9 Gastro-esophageal reflux disease without esophagitis; J45.901 Unspecified asthma with (acute) exacerbation; Z79.899 Other long term (current) drug therapy
CPT/HCPCS: 36415; 49083; 76705; 80048; 80076; 85025; 85610; P9047

== ENCOUNTER → 2023-12-11 13:00 | Outpatient (BNV) | payer OTHER, SELFPAY | PROVIDERS: PCP Pediatrics; Visit Provider Student in an Organized Health Care Education/Training Program | DX: R18.8 Other ascites (principal) | CPT/HCPCS: 76705 ==

== ENCOUNTER 2024-02-03 12:59 | Outpatient (RCR) | payer OTHER, SELFPAY ==
--- NOTE | 2024-02-10 10:17 | MHC.SP.ADU ---
Referring provider: Phi Prater MD Reason for Referral: Hoarseness Type of Treatment: 56348 Behavioral and Qualitative Analysis of Voice and Resonance Date of Plan of Treatment: 02/03/24 Onset of Symptoms/Illness: 07/18/21 Date Treatment Started: 02/03/24 Medical Diagnosis: Chronic Hoarseness, Asthma, GERD Primary Speech Language Diagnosis: R49.0 Dysphonia Secondary Speech Language Diagnosis: History Mauricio Mario is a 48 year old man who was referred for vocal therapy by his ENT, Dr. Phi Prater. Mauricio has a significant history of COVID infection, occurring in 2020, that required a prolonged period of intubation, tracheotomy (now healed), and prolonged ICU stay lasting 62 days, all at [facility], followed by six weeks of rehabilitation at [facility]. Mauricio reports at the time of his illness his prognosis was poor, with MDs warning that he would likely , may never walk, may suffer severe cognitive impairment, however, after his period of rehabilitation he walked out of [place] and has not had the dire consequences predicted. He has however had lasting chronic issues related to his illness including having chronic vocal hoarseness and episodes of vocal loss. Mauricio was originally diagnosed with vocal hoarseness on 07/18/[address] Prater. He was referred for vocal therapy and saw a Speech Therapist soon after, who performed videostrobocopy with findings of Bilateral True Vocal folds with Mild Edema with yellow tinge underlying erythema and possible psuedosulculus. (Rosario Duarte MA CCC/FLIGHT DYNAMICIST, 09/18/21) This speech therapist assigned Mauricio with a home program of vocal therapy and exercises, but apparently had no follow up with Mauricio. Mauricio describes that his vocal issues chronically affect his general communication, with family members often interrupting/speaking for him in daily communication, loss of voice when fatigued, avoidance of social communication situation in the community. His most recent instrumental examination of his larynx by Dr. Prater on 12/03/23 was benign with no evident vocal pathology. Dr. Prater indicated in his report for this visit: I believe his difficulty with vocal control is related to poor breath support as well as likely some element of muscle tension. In addition to his voice issues, Mauricio reported a number of other skilled nursing issues related to his episode with COVID, including generalized weakness, mental fog, episodes of sudden collapse/fall, and fatigue. 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 Mauricio additionally has a skilled nursing history of Asthma (which he reported as his only pre-existing condition at the time of his COVID infection), for which he takes Sybacourt and Dupixinet, and GERD. Mauricio lives in a private home [place] with his and two daughters. Medical History: Allergies Arthritis Asthma Other: Migraines, concussion, Pneumonia Medication List: Gabapentin, Symbicort, Spiroatom, furosemide, Hydrocortisone, Ursodial, Allergy Med, Nasacort, Baclofen, Vit D3, Montelukast, Pantoprazole, Melatonin, Mirtazapine, Dicyclomine Recent Hospitalizations: No Respiratory Needs: Room Air Patient Orientation: Alert & Oriented x 4 Social History: Employment Status: Unemployed Highest level of education obtained: Completed some college Current Living Situation: Lives in a private home with his and two teenage daughters. Past Speech Language Therapy: Briefly saw and FLIGHT DYNAMICIST in the fall who provided him with a home exercise program. Reported Speech, Language, Cognition difficulties: Voice Comments: Mauricio has had chronic voice issues since experiencing a severe episode of COVID 19 requiring extensive medical intervention. He evidences a moderate to severe Dysphonia characterized by vocal hoarseness, reduced volume, reduced resonance, reduced breath support for phonation, and episodic aphonia when fatigued. Quality of Life: Vocal issues have moderately to severely affected Mauricio's quality of life, having an impact on his functional communication skills at home, in the community and in his workplace. Patient Stated Goal of Speech-Language Therapy: Provide a course of vocal therapy to improve breath support, phonation, volume and resonance. Assessment Informal Voice Assessment: Voice Loudness: Moderately Soft/Quiet Voice Nasal Resonance: Normal Voice Oral Resonance: Chesty Voice Phonatory-based Quality: Hoarse Voice Pitch: Normal Clinical Impression: Impaired Clinicial Observations: Mauricio presented as very pleasant, engaging and cooperative throughout the assessment. His physical presentation evidences apparent generalized weakness, in particular, upper body weakness that likely includes his respiratory strength. Mauricio was administered the Consensus Auditory Perceptual Evaluation of Voice (CAPE-V), an informal instrument used to evaluate salient perceptual vocal attributes. The attributes are: (a) Overall Severity; (b) Roughness; (c) Breathiness; (d) Strain; (e) Pitch; and (f) Loudness. Mauricio presented with moderate vocal breathiness, and mild to moderate vocal roughness, strain and decreased loudness. On sustained production of specific vowel sounds, he evidenced some vocal breaks or aphonia. On a test of sequencing specific speech sounds (Diodochokinetic Rate), he notably evidenced loss of voice after 4 to 5 seconds of sustained production. His s/z ratio in production was balanced, however notably brief on a single breath (7/8 seconds). Overall resonance was reduced affecting his overall volume. Results are consistent with a moderate to severe Dysphonia, characterized by vocal hoarseness, reduced volume, reduced resonance, reduced breath support for phonation, and episodic aphonia with sustained phonation or speech production. Impressions and Recommendations Summary: On a perceptually based evaluation of voice and voice production today, Mauricio presents with a moderate to severe dysphonia characterized by a hoarse/breathy vocal quality, reduced volume, reduced breath support for sustained production of voice and speech and periodic aphonic breaks. Mauricio reports his vocal issues affecting most aspects of his functional communication including his ability to return to work, as he is unable to sustain adequate voice and volume to be understood in general professional interactions. As Mauricio has not evidenced any specific vocal pathology on instrumental evaluation, his vocal issues are likely related to the persistent generalized weakness he has had since a severe and consequential bout of COVID three years ago. It is recommended that Mauricio return for a period of voice therapy focused on building strength related to breath support for speech, sustaining phonation, resonance and loudness as well as maintaining vocal health. Impact on Daily Function/Activity Limitations: Daily Activities: Moderate Interpersonal Interactions: Moderate Employment: Severe Community: Severe Prognosis for Improvement: Good Comment: Mauricio has received very limited and unsuccessful treatment for his voice needs to date. Recommendation for Speech Therapy: Outpatient Speech Therapy Frequency/Duration: One forty five minute session with daily homework/exercises assigned weekly Date Range for Service Requested: 8-12 Weeks. Time to Reassess: PRN Halfway Goals: Mauricio will produce adequate breath support to produce consistent phonation and volume for functional communication as observed over three therapy session and in self report in other contexts. Short Term Goals: Goal # : 1. Mauricio will use relaxation strategies, including circular breathing, constructive rest, visualization techniques to reduce muscle tension demonstrating 80% independence on instructed techniques. Goal Status: Goal# : 2.1 Mauricio will use breath support to produce vocal flow for sustained vowel production with clear phonation and adequate volume with 80% accuracy. 2.2 Mauricio will use breath support to produce vocal flow for vcv, vowel initial words, phrases and sentences with 80% accuracy Goal Status: Goal # : 3. Mauricio will use vocal flow techniques to produce increased volume and resonance for words, phrases and sentences with 80% accuracy Goal Status: Goal # : 4. 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
== END 2024-02-19 13:22 | disposition still patient (30) ==
LOC: HO.SH 12:59
PROVIDERS: PCP Pediatrics; Visit Provider Otolaryngology
DX: R49.0 Dysphonia (principal)
CPT/HCPCS: 92524

== ENCOUNTER 2024-02-27 08:01 | Outpatient (REF) | payer OTHER, SELFPAY ==
[2024-02-27 08:22] LABS: MANUAL DIFF FLAG NO
[2024-02-27 08:35] LABS: Ammonia 54 umol/L (13-55)
[2024-02-27 08:56] LABS: Basophils Absolute Auto 0.1 X10*3/uL (0.0-0.2); Basophils Percent Auto 0.8 % (0-2); Eosinophils Absolute Auto 0.3 X10*3/uL (0.0-0.4); Eosinophils Percent Auto 1.8 % (0-4); Hematocrit 43.5 % (42.0-52.0); Hemoglobin 14.5 g/dl (14.0-18.0); Imm Gran Pct Auto 0.7 % (0.0-0.4); Lymphocytes Percent Auto 13.6 % (20-40); Mean Corpuscular HGB Conc 33.3 g/dl (31.0-36.0); Mean Corpuscular Hemoglobin 29.4 pg (27.0-33.0); Mean Corpuscular Volume 88.2 fL (80.0-98.0); Mean Platelet Volume 11.6 fL (9.4-12.4); Monocytes Absolute Auto 1.4 X10*3/uL (0.1-1.2); Monocytes Percent Auto 9.4 % (2-11); Neutrophils Absolute Auto 10.8 x10*3/uL (2.0-8.3); Neutrophils Percent Auto 73.7 % (45-73); Platelet Count 179 X10*3/uL (160-400); Red Blood Count 4.93 X10*6/uL (4.60-5.80); Red Cell Distribution Width 18.8 % (11.0-16.0); White Blood Count 14.6 X10*3/uL (4.8-10.8)
[2024-02-27 09:01] LABS: INTERNATIONAL NORM RATIO 1.1 (0.9-1.1); Prothrombin Time 13.9 SEC (11.1-13.3)
[2024-02-27 09:43] LABS: Alanine Aminotransferase 46 U/L (0-40); Albumin Level 3.4 g/dL (3.5-5.0); Alkaline Phosphatase 303 U/L (39-117); Anion Gap 15 (12-20); Aspartate Amino Transferase 64 U/L (5-37); Bilirubin Direct 1.6 mg/dL (0.0-0.5); Bilirubin Total 2.2 mg/dL (0.0-1.0); Blood Urea Nitrogen 27 mg/dL (9-16); Calcium 9.9 mg/dL (8.4-10.2); Carbon Dioxide 26 mmol/L (22-29); Chloride 106 mmol/L (96-108); Estimated Glomerular Filt Rate 57; Glucose Random 78 mg/dL (60-115); Potassium 3.8 mmol/L (3.3-5.1); Sodium 143 mmol/L (135-145); Total Protein 7.5 g/dL (6.5-8.0)
[2024-02-29 13:13] LABS: Alpha Fetoprotein 2.5 ng/mL (<6.1)
== END 2024-02-27 08:02 | disposition home or self-care (01) ==
LOC: HO.LAB 08:01
PROVIDERS: PCP Pediatrics; Visit Provider Internal Medicine
DX: K74.60 Unspecified cirrhosis of liver (principal); R18.8 Other ascites; R93.2 Abnormal findings on diagnostic imaging of liver and biliary tract
CPT/HCPCS: 36415; 80048; 80076; 82105; 82140; 85025; 85610

== ENCOUNTER 2024-07-22 07:49 | Outpatient (REF) | payer OTHER, SELFPAY ==
--- NOTE | ~2024-07-22 | US_ITS ---
EXAMINATION: US ABDOMEN COMPLETE WITH ATTENTION TO THE LIVER CLINICAL INFORMATION: Cirrhosis of the liver; concern for portal vein thrombosis COMPARISON: MRI abdomen March 31, 2023 TECHNIQUE: Ultrasound of the abdomen was performed. In light of the patient's liver disease, color and spectral Doppler analysis was also employed. FINDINGS: LIVER: The liver is enlarged in size, nodular contour and heterogeneous in echotexture, measuring 24 cm in the midclavicular line. Multiple intrahepatic lesions are identified, the largest measuring 7.0 x 4.3 cm. GALLBLADDER: The gallbladder is normal in appearance without gallstones, mural thickening, pericholecystic fluid or sonographic Griffin's sign. BILIARY TREE: No intrahepatic or extrahepatic biliary ductal dilatation is identified. The CBD measures 0.7 cm in diameter. Incidentally noted small anechoic collection near the gallbladder fossa measuring 4.7 x 2.6 x 3.7 cm. PORTAL VEINS: Patency: The main, right and left portal veins are patent with normal direction of flow. HEPATIC ARTERY: Patency: The proper, right and left hepatic arteries are patent. Peak systolic velocity of proper hepatic artery: 183 cm/sec. HEPATIC VEINS: Patent centrally. OTHER: Abdominal aorta: Unremarkable. IVC: Unremarkable. Splenic vein: Patent with normal direction of flow. Portosplenic confluence: Patent with normal direction of flow. PANCREAS: Pancreas not well visualized. SPLEEN: Enlarged measuring 17 cm. RIGHT KIDNEY: Right kidney measures 14.4 cm. Cortical atrophy There is no hydronephrosis, contour deforming mass or shadowing calculus. LEFT KIDNEY: Left kidney measures 14.4 cm. Cortical atrophy. There is no hydronephrosis, contour deforming mass or shadowing calculus. A large varix is seen surrounding the left kidney. ASCITES: None. US/US duplex arterial venous comp IMPRESSION: 1. Hepatosplenomegaly, cirrhotic morphology and heterogeneous echotexture. Multiple intrahepatic masses are identified, the largest measuring 7 cm. Recommend further evaluation with MRI abdomen with contrast. 2. Small cystic structure near the gallbladder fossa measuring 4.7 x 2.6 x 3.7 cm. 3. No evidence of portal vein thrombosis. 4. Left retroperitoneal an splenic hilum varices. Electronically signed by: Rm Mcmillan DO 07/27/2024 10:03 AM EDT
[2024-07-22 09:06] LABS: MANUAL DIFF FLAG NO
[2024-07-22 09:34] LABS: Basophils Absolute Auto 0.1 X10*3/uL (0.0-0.2); Basophils Percent Auto 0.7 % (0-2); Eosinophils Absolute Auto 0.2 X10*3/uL (0.0-0.4); Eosinophils Percent Auto 1.3 % (0-4); Hematocrit 45.5 % (42.0-52.0); Hemoglobin 14.8 g/dl (14.0-18.0); Imm Gran Abs Auto 0.08 X10*3/uL (0.00-0.03); Imm Gran Pct Auto 0.7 % (0.0-0.4); Lymphocytes Absolute Auto 1.5 X10*3/uL (1.2-4.9); Lymphocytes Percent Auto 12.5 % (20-40); Mean Corpuscular HGB Conc 32.5 g/dl (31.0-36.0); Mean Corpuscular Volume 92.3 fL (80.0-98.0); Mean Platelet Volume 10.9 fL (9.4-12.4); Monocytes Percent Auto 7.8 % (2-11); Neutrophils Absolute Auto 9.4 x10*3/uL (2.0-8.3); Platelet Count 155 X10*3/uL (160-400); Red Blood Count 4.93 X10*6/uL (4.60-5.80); Red Cell Distribution Width 18.1 % (11.0-16.0); White Blood Count 12.2 X10*3/uL (4.8-10.8)
[2024-07-22 09:38] LABS: INTERNATIONAL NORM RATIO 1.1 (0.9-1.1); Prothrombin Time 13.3 SEC (10.9-12.4)
[2024-07-22 10:08] LABS: Alanine Aminotransferase 50 U/L (0-40); Albumin Level 3.2 g/dL (3.5-5.0); Alkaline Phosphatase 317 U/L (39-117); Anion Gap 10 (12-20); Aspartate Amino Transferase 68 U/L (5-37); Bilirubin Direct 1.4 mg/dL (0.0-0.5); Blood Urea Nitrogen 19 mg/dL (9-16); Calcium 9.6 mg/dL (8.4-10.2); Carbon Dioxide 27 mmol/L (22-29); Chloride 111 mmol/L (96-108); Estimated Glomerular Filt Rate > 60; Glucose Random 97 mg/dL (60-115); Potassium 4.2 mmol/L (3.3-5.1); Sodium 144 mmol/L (135-145); Total Protein 6.8 g/dL (6.5-8.0)
== END 2024-07-22 07:50 | disposition home or self-care (01) ==
LOC: HO.US 07:49
PROVIDERS: PCP Pediatrics; Visit Provider Internal Medicine
DX: K74.60 Unspecified cirrhosis of liver (principal)
CPT/HCPCS: 36415; 76700; 80048; 80076; 85025; 85610; 93975

== ENCOUNTER 2024-07-26 13:00 | Outpatient (RCR) | payer OTHER, SELFPAY ==
--- NOTE | 2024-06-08 14:20 | MHC.SL.SOA ---
Referring Provider: Phi Prater MD Reason for Referral: Hoarseness Date of Plan of Treatment:02/03/24 Onset of Symptoms/Illness:07/18/21 Date Treatment Started:02/03/24 Medical Diagnosis:s/p severe COVID with fci sequela, hoarseness Primary Speech Language Diagnosis:R49.0 Dysphonia Secondary Speech Language Diagnosis: Number of Authorized Visits Remaining: Authorization End Date: Reason for Visit:66880 Individual Treatment Other: Subjective:Mauricio was on time for his voice therapy session. There had been a hiatus of therapy over the past two weeks due to competing vacations. During that time, Mauricio had developed some respiratory issue, for which he had received specialist medical attention, including CT imaging. He reported that he has a partial dislocation of tracheal cartilage that might need further medical intervention, and he has been on increased updraft and steriod therapy. It was further immediately noticeable that some of the gains that had been evident in therapy at the last session had regressed, and he presented with a weak, breathy voice at onset of the session. He did however note that a week or two earlier he was in a circumstance where he needed to shout across two yards to a neighbor, who evidently heard him and responded, with Mauricio telling his I guess the speech therapy is working. This note is to serve as a progress note for re-authorization of therapy for coming sessions. Objective: Mauricio practiced breath support exercises, vocal flow exercises and sustaining breath and sound exercises today. Today's session was annotated to be used as a guide for daily practice of exercises at home. Assessment:1.1: During the course of therapy, Mauricio has worked on relaxation/breathing strategies including circular breathing, interval breathing, abdominal focused breathing. With initial instruction in techniques, Mauricio has demonstrated 100% accuracy in demonstrating each of these strategies, and has reported carryover practice at home. 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 However, given Mauricio's generalized de-conditioning and extensive lung scarring from severe COVID, continues to be an area of focus and need, and will be an ongoing area of goal and practice. 2.1 Mauricio sustained a loud (M) Ah, EE, OO independently, focusing on resonance and loudness. Mauricio produced these targets for 5 seconds X10 repetitions with dbl >80. Mauricio over the course of therapy has increased both the consistent volume (> 80dbl) and duration (from averaging three seconds to five seconds). During today's session, it was evident that his vocal quality directly improved after executing this task. It was reinforced that this exercise should be a part of his daily home practice. 2.2: Mauricio produced loud /h/ initial words with clear abdominal support, and 70-80 dbl spl. He produced /h/ loaded phrases and sentences that increased in length, with adequate breath support, although at times lost phonation at the end of the phrase. 3.1: Mauricio completed a sequence (days of the week) to vary loudness with 100% accuracy, demonstrating good diaphragmatic support throughout. Mauricio produced hard glottal onset jansen! X10 with good respiratory support. 4.1 Mauricio practiced using adequate breath support and sustained volume while reading an article about the [employer] (area of interest) Volume was sustained in the 60-70 db range was maintained which was mildly softer than the last trial at this task. Progress General Summary: Mauricio has very consistently made excellent effort at all therapy sessions. He has in general made very good progress with both improving respiratory support for sustained phonation, as well as increasing volume and vocal clarity, which have been the goals of therapy. However, this session evidenced that he remains quite vulnerable to setbacks due to medical issues related to his respiratory recovery from severe COVID. It is recommended that Mauricio continue with therapeutic support for an additional 4-6 weeks. Notes: Plan: Goal # : 1. Mauricio will use relaxation strategies, including circular breathing, constructive rest, visualization techniques to reduce muscle tension demonstrating 80% independence on instructed techniques. Status of Goal: Goal # : 2.1 Mauricio will use breath support to produce vocal flow for sustained vowel production with clear phonation and adequate volume with 80% accuracy. 2.2 Mauricio will use breath support to produce vocal flow for vcv, vowel initial words, phrases and sentences with 80% accuracy Status of Goal: Goal # : 3. Mauricio will use vocal flow techniques to produce increased volume and resonance for words, phrases and sentences with 80% accuracy Status of Goal: Goal # : 4. Mauricio will produce well supported vocal production in connected conversational speech with 80% accuracy Status of Goal: Seen by: Graduate/Clinical Fellow: No Supervisory Statement: f_Reg Query Last Value , MHC.AU.SIGNATUR Speech Language Pathologist: Linnette Cabrales M.A., [facility]
--- NOTE | 2024-07-31 12:22 | MHC.SL.SOA ---
Referring Provider: Phi Prater MD Reason for Referral: Hoarseness Date of Plan of Treatment:02/03/24 Onset of Symptoms/Illness:07/18/21 Date Treatment Started:02/03/24 Medical Diagnosis:s/p severe COVID with retirement sequela, hoarseness Primary Speech Language Diagnosis:R49.0 Dysphonia Secondary Speech Language Diagnosis: Number of Authorized Visits Remaining: Authorization End Date: Reason for Visit:55101 Individual Treatment Other: Subjective:Mauricio was on time for his voice therapy session. Mauricio presented initially at the session with a moderately soft/low volume voice that was slightly higher pitched than expected. During the session after exercises, it was notable that his voice hade greater tone variety and adequate volume. It has been concistently demonstrated over sever sessions that exercises completed generally improve Mauricio's vocal quality, and this evidence was used to reinforce and encourage Mauricio to continue to exercise, particularly when he is not happy with the quality of his voice. Today was agreed to be Ashley last voice therapy session for this interim of service. Mauricio stated that he felt he had the tools and the knowledge needed to continue to support his voice. He expressed a goal of working toward overall improved physical conditioning and was aware that doing so would continue to benefit his voice. This note is to serve as his discharge summary. Objective: Mauricio practiced breath support exercises, vocal flow exercises and sustaining breath and sound exercises today. Each session with Mauricio was annotated to be used as a guide for daily practice of exercises at home. Mauricio has these notes as a resource for continued practice at home. Assessment:1.1: Mauricio has consistently demonstrated 100% accuracy on relaxation and breath support exercises completed during the course of his therapy. 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 2.1 Mauricio has been able to produce sustained vowels with volume in 80-90 dBl range with very good consistency over most sessions. This exercise in general resulting in immediate improvement in both volume and vocal quality of his speaking voice when completed. 2.2: Mauricio produced targeted words with vowel or /h/ initial consonants with adequate volume and breath support with greater than 80% accuracy over several sessions. He was able to sustain volume and breath support when using target initial words in phrases and novel sentences over several session. 3.1: Mauricoi has demonstrated strong ability to vary volume with appropriate breath support over multiple session. 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 4.1 Mauricio has been consistently demonstrating sustaining strategies during conversational speech activities. In his conversational speech, Mauricio demonstrates adequate volume, vocal tone and intonation, however it is evident that he still has mild breathiness in his vocal quality in general. Commentary/Summary: Mauricio has made solid progress during his period of Voice therapy, improving his awareness of vocal respiratory support and resonance to improve voice. Mauricio was encouraged to keep practicing, particularly if he notices his voice lapsing. Mauricio has had persistent generalized weakness for several years post severe COVID, with his voice only one element of that weakness. He would continue to benefit from a program of physical therapy to safely and steadily improve his stamina. Mauricio was advised to recontact the clinic if he notices significant regression in his skills. Discharge from Speech/Voice Therapy at this time. Notes: Plan: Goal # : 1. Mauricio will use relaxation strategies, including circular breathing, constructive rest, visualization techniques to reduce muscle tension demonstrating 80% independence on instructed techniques. Status of Goal: Goal met/discharge Goal # : 2.1 Mauricio will use breath support to produce vocal flow for sustained vowel production with clear phonation and adequate volume with 80% accuracy. 2.2 Mauricio will use breath support to produce vocal flow for vcv, vowel initial words, phrases and sentences with 80% accuracy Status of Goal: Goal met/discharge Goal # : 3. Mauricio will use vocal flow techniques to produce increased volume and resonance for words, phrases and sentences with 80% accuracy Status of Goal: Goal met/discharge Goal # : 4. Mauricio will produce well supported vocal production in connected conversational speech with 80% accuracy Status of Goal: Goal met/discharge Seen by: Graduate/Clinical Fellow: No Supervisory Statement: f_Reg Query Last Value , MHC.AU.SIGNATUR Speech Language Pathologist: Linnette Cabrales M.A., [facility]
== END 2024-08-02 11:09 | disposition home or self-care (01) ==
LOC: HO.SH 13:00
PROVIDERS: PCP Pediatrics; Visit Provider Otolaryngology
DX: R49.0 Dysphonia (principal)
CPT/HCPCS: 92507

== ENCOUNTER 2025-05-08 10:29 | Inpatient (IN) | payer OTHER, SELFPAY ==
--- OUTSIDE RECORDS SUMMARY | 2025-05-05 23:59 | XMS_ITS | Continuity of Care Document ---
Author Organization [facility] Address [address] [place] [address]- Care Team Providers Care Mapping Pilot Name Role Phone Isrrael TRACEY, Chet Primary Care Physician [place] [facility] [place](s): 04/05/25 - 05/05/25 [facility] [address] [place] [id number] Encounter Type: Triage Allergies, Adverse Reactions, Alerts Substance Criticality Severity Reaction Reaction Severity Status amoxicillin hives Active Spiriva hives Active meropenem DILI Active tiotropium Pruritis Active QUEtiapine 1 blurred vision Ac tive 1blurred vision (in ICU 2020) Immunizations Given and Recorded Vaccine Date Status Refusal Reason hepatitis B adult vaccine 08/15/24 Given hepatitis B adult vaccine 07/08/24 Given hepatitis B adult vaccine 05/29/22 Given hepatitis B adult vaccine 1 02/27/22 Given hepatitis B adult vaccine 2 02/27/22 Given hepatitis B adult vaccine 3 01/27/22 Given hepatitis B adult vaccine 4 01/27/22 Given tetanus/diphtheria/pertussis, acel(Tdap) 02/04/23 Given [id number]-ObS-3fMWI 12y+ bivalent booster vax 5 07/21/22 Recorded pneumococcal 20-valent conjugate vaccine 04/08/22 Given Hepatitis A Adult Vaccine 04/08/22 Given Hepatitis A Adult Vaccine 01/27/22 Given SARS-CoV-2 (COVID-19) mRNA-1273 vaccine 03/26/22 R ecorded SARS-CoV-2 (COVID-19) mRNA BNT-162b2 vac 10/07/21 Given SARS-CoV-2 (COVID-19) Ad26 vaccine 05/28/21 Record ed 1Result Comment: High dose Hep B given 2Result Comment: High dose Hep B 3Result Comment: High dose 4Result Comment: High dose 5Result Comment: Given by this RN in office Medications Albuterol (Eqv-Proventil HFA) 90 mcg/inh inhalation aerosol 1 puffs, Inhalation, Every 6 hours, PRN NEEDED FOR WHEEZING, # 18 each, 6 Refills, Maintenance, 02/06/25 12:03:00 PM EDT, [id number], 182, cm, 12/01/24 14:50:00 EST, Height, 108.3, kg, 10/03/24 14:01:00 EST, Dry Weight Start Date: 02/06/25 Status: Ordered Quantity: 18.0 Unit: each Repeat number: 1 Alcohol Wipes See Instructions, # 300 each, Maintenance, used to check blood glucose four times daily, 03/02/25 12:26:00 PM EDT, Supply, 182, cm, 03/02/25 10:44:00 EDT, Height, 105, kg, 02/26/25 15:12:00 EDT, Dry Weight Start Date: 03/02/25 Status: Ordered Quantity: 300.0 Unit: each Repeat number: 1 BACLOFEN 10 MG TABLET BACLOFEN 10 MG TABLET, 1, tablet, By Mouth, 3 times a day, # 270 tablet, 1 Refills, Maintenance, 12/20/24 11:59:00 AM EST, 182, cm, 12/01/24 14:50:00 EST, Height, 108.3, kg, 10/03/24 14:01:00 EST, DryWeight Start Date: 12/20/24 Status: Ordered Quantity: 270.0 Unit: tablet Repeat number: 1 baclofen 20 mg oral tablet 20 mg, 1, tablet, By Mouth, 3 times a day, for muscle pain dosage adjustment, # 90 tablet, Refills 1, Tot. Refills 1, Maintenance, 02/22/25 9:43:00 AM EDT, Route to Pharmacy Electronically, [facility]/pharmacy #[id number], Partial fill upon patient request if the prescription is for a schedule II opioid drug., 182, cm, 02/22/25 9:08:00 EDT, Height, 108.3, kg, 10/03/24 14:01:00 EST, Dry Weight Start Date: 02/22/25 Status: Ordered Quantity: 90.0 Unit: tablet Repeat number: 2 BACLOFEN 20 MG TABLET BACLOFEN 20 MG TABLET, 1, tablet, By Mouth, 3 times a day, # 90 tablet, 1 Refills, Maintenance, FORMUSCLE PAIN DOSAGE ADJUSTMENT., 04/25/25 12:27:00 PM EDT, 182, cm, 04/19/25 13:01:00 EDT, Height, 105, kg, 02/26/25 15:12:00 EDT, Dry Weight Start Date: 04/25/25 Status: Ordered Quantity: 90.0 Unit: tablet Repeat number: 1 Baqsimi Two Pack 3 mg nasal powder See Instructions, 3 mg Once intranasally during episode of severe hypoglycemia. E11.9, # 2 each, 2 Refills, Soft Stop, 03/22/25 3:49:00 PM EDT, [facility]/pharmacy #[id number], Partial fill upon patient request ifthe prescription is for a schedule II opioid drug., 182, cm, 03/22/25 14:42:00 EDT, Height, 105, kg, 02/26/25 15:12:00 EDT, Dry Weight Start Date: 03/22/25 Status: Ordered Quantity: 2.0 Unit: each Repeat number: 3 budesonide-formoterol 160 mcg-4.5 mcg/inh inhalation aerosol with adapter 2, puffs, Inhalation, 2 times a day, # 10.2 each, Refills 6, Maintenance, 12/08/24 1:23:00 PM EST, Route to Pharmacy Electronically, [id number], [id number], 182, cm, 12/01/24 14:50:00 EST, Height, 108.3, kg, 10/03/24 14:01:00 EST, Dry Weight Start Date: 12/08/24 Status: Ordered Quantity: 10.2 Unit: each Repeat number: 1 cetirizine 10 mg oral tablet 1 tablet, By Mouth, Daily, # 90 tablet, 1 Refills, Maintenance, 03/17/25 12:11:00 PM EDT, [id number], 182, cm, 03/06/25 8:22:00 EDT, Height, 105, kg, 02/26/25 15:12:00 EDT, Dry Weight Start Date: 03/17/25 Status: Ordered Quantity: 90.0 Unit: tablet Repeat number: 1 ciclopirox 0.77% topical gel 1 application, Topically, 2 times a day, FOR NAIL FUNGUS., # 100 Gm, 1 Refills, Maintenance, 04/25/2512:27:00 PM EDT, [facility], 30, APPLY 1 APPLICATION TOPICALLY 2 TIMES A DAY FOR NAIL FUNGUS, 182, cm, 04/19/25 13:01:00 EDT, Height, 105, kg, 02/26/25 15:12:00 EDT, Dry Weight Start Date: 04/25/25 Status: Ordered Quantity: 100.0 Unit: g Repeat number: 1 Daily Nathaniel oral tablet 1 tablet, By Mouth, Daily, # 90 tablet, 1 Refills, Maintenance, 03/22/25 9:40:00 AM EDT, [facility], 90, TAKE 1 TABLET BY MOUTH EVERY DAY FOR 30 DAYS, 182, cm, 03/21/25 15:10:00 EDT, Height, 105,kg, 02/26/25 15:12:00 EDT, Dry Weight Start Date: 03/22/25 Stop Date: 04/21/25 Status: Ordered Quantity: 90.0 Unit: tablet Repeat number: 1 Dexcom G7 CGM reader Dexcom G7 CGM reader, See Instructions, # 1 each, Refills 0, Tot. Refills 0, Maintenance, Dx 11.9 use to monitor BGS. E11.0, 03/22/25 3:48:00 PM EDT, Supply, 182, cm, 03/22/25 14:42:00 EDT, Height, 105, kg, 02/26/25 15:12:00 EDT, Dry Weight Start Date: 03/22/25 Status: Ordered Quantity: 1.0 Unit: each Repeat number: 1 Dexcom G7 CGM sensors Dexcom G7 CGM sensors, See Instructions, # 3 each, Refills 11, Tot. Refills 11, Maintenance, Dx 11.9. Use to monitor BGS. Change every 10 days., 03/22/25 3:48:00 PM EDT, Supply, 182, cm, 03/22/25 14:42:00 EDT, Height, 105, kg, 02/26/25 15:12:00 EDT, Dry Weight Start Date: 03/22/25 Status: Ordered Quantity: 3.0 Unit: each Repeat number: 12 dicyclomine 10 mg oral capsule TAKE 1 TO 2 CAPSULES BY MOUTH EVERY 6 HOURS NEEDED FOR ABDOMINAL CRAMPS/GAS/DISCOMFORT Start Date: 09/15/22 Status: Ordered Repeat number: 1 Dupixent Pre-filled Syringe 300 mg/2 mL subcutaneous solution See Instructions, 300 mg Subcutaneous Infusion every 14 days, # 2 each, 11 Refills, Soft Stop, 12/07/24 10:53:00 AM EST, [facility], Partial fill upon patient request if the prescription is for a schedule II opioid drug., 182, cm, 12/01/24 14:50:00 EST, Height, 108.3, kg, 10/03/24 14 :01:00 EST, Dry Weight Start Date: 12/07/24 Status: Ordered Quantity: 2.0 Unit: each Repeat number: 12 fexofenadine 180 mg oral tablet 1 tablet = 180 mg, By Mouth, Daily, # 30 tablet, 6 Refills, Maintenance, 12/02/24 1:35:00 PM EST, Tablet, [facility]/pharmacy #[id number], Partial fill upon patient request if the prescription is for a schedule II opioid drug., 182, cm, 12/01/24 14:50:00 EST, Height, 108.3, kg, 10/03/24 14:01:00 EST, Dry Weight Start Date: 12/02/24 Status: Ordered Quantity: 30.0 Unit: tablet Repeat number: 7 Fish Oil 1000 mg oral capsule 1 capsule = 1,000 mg, By Mouth, Daily, 1 capsule po qd, # 90 capsule, 3 Refills, Maintenance, 06/23/23 3:03:00 PM EDT, Capsule, [facility]/pharmacy #[id number], Partial fill upon patient request if the prescription is for a schedule II opioid drug., 180, cm, 06/17/23 8:08:00 EDT, Height, 93, kg, 06/15/23 12:59:00 EDT, Dry Weight Start Date: 06/23/23 Stop Date: 06/17/24 Status: Ordered Quantity: 90.0 Unit: capsule Repeat number: 4 fluticasone 50 mcg/inh nasal spray See Instructions, USE 2 SPRAYS IN EACH NOSTRIL DAILY, # 48 mL, 3 Refills, Maintenance, 07/03/24 7:02:00 AM EDT, [id number], 90, USE 2 SPRAYS IN EACH NOSTRIL DAILY, 182, cm, 06/02/24 15:01:00 EDT, Height, 99.2, kg, 09/22/23 15:11:00 EST, Dry Weight Start Date: 07/03/24 Status: Ordered Quantity: 48.0 Unit: mL Repeat number: 1 Freestyle Lite Monitor See Instructions, # 1 each, Maintenance, used to check blood glucose four times daily, 03/02/25 12:29:00 PM EDT, Supply, 182, cm, 03/02/25 10:44:00 EDT, Height, 105, kg, 02/26/25 15:12:00 EDT, Dry Weight Start Date: 03/02/25 Status: Ordered Quantity: 1.0 Unit: each Repeat number: 1 Freestyle Lite Test Strips See Instructions, # 300 each, Tot. Refills 5, Maintenance, use as directed for Type 2 Diabetes Mellitus,used to check blood glucose four times daily, 03/02/25 12:30:00 PM EDT, Supply, 182, cm, 03/02/2510:44:00 EDT, Height, 105, kg, 02/26/25 15:12:00 EDT, Dry Weight Start Date: 03/02/25 Stop Date: 04/01/25 Status: Ordered Quantity: 300.0 Unit: each Repeat number: 6 furosemide 40 mg oral tablet 90 each, 0 Refill(s), TAKE 1 TABLET BY MOUTH EVERY DAY FOR 30 DAYS, Refills 0, 12/01/24 2:49:00 PM EST, Partial fill upon patient request if the prescription is for a schedule II opioid drug. Start Date: 12/01/24 Status: Ordered Repeat number: 1 gabapentin 600 mg oral tablet 1 tablet = 600 mg, By Mouth, 3 times a day, # 90 tablet, 5 Refills, Maintenance, 05/01/25 12:48:00 PMEDT, [facility]/pharmacy #[id number], 182, cm, 04/19/25 13:01:00 EDT, Height, 105, kg, 02/26/25 15:12:00 EDT, Dry Weight Start Date: 05/01/25 Stop Date: 10/28/25 Status: Ordered Quantity: 90.0 Unit: tablet Repeat number: 6 GaviLAX oral powder for reconstitution 0 Refill(s), 0 Refills, 04/04/25 8:00:00 PM EDT, Partial fill upon patient request if the prescription is for a schedule II opioid drug. Start Date: 04/04/25 Status: Ordered Repeat number: 1 Glucerna Protein shakes, 1 daily, 30 per month, Layo 99 months. Dx K76.9 Glucerna Protein shakes, 1 daily, 30 per month, Layo 99 months. Dx K76.9, See Instructions, # 30 each, Refills 11, Tot. Refills 11, Maintenance, Protein shakes, 1 daily, 30 per month, Layo 99 months. Dx K76.9, Ell.9, 03/03/25 1:06:00 PM EDT, Supply Start Date: 03/03/25 Status: Ordered Quantity: 30.0 Unit: each Repeat number: 12 glucosamine 500 mg oral tablet 1 tablet = 500 mg, By Mouth, Daily, 0 Refills, Maintenance, 06/23/23 2:18:00 PM EDT, Partial fill upon patient request if the prescription is for a schedule II opioid drug. Start Date: 06/23/23 Status: Ordered Repeat number: 1 Humalog Kwik Pen 100 units/mL subcutaneous injection See Instructions, use based on sliding scale between 8-21units, 3 times daily before meals. MDD 43 units. E11.9, # 30 mL, 5 Refills, Maintenance, 03/22/25 3:46:00 PM EDT, Solution, [facility]/pharmacy #[id number],Partial fill upon patient request if the prescription is for a schedule II opioid drug., 182, cm, 03/22/25 14:42:00 EDT, Height, 105, kg, 02/26/25 15:12:00 EDT, Dry Weight Start Date: 03/22/25 Status: Ordered Quantity: 30.0 Unit: mL Repeat number: 6 HydroCORTisone 5 mg oral tablet See Instructions, PLEASE TAKE 2 TABLETS (10MG) IN THE MORNING AND 1 TABLET (5MG) AT 3PM 90 DAY SUPPLY, # 260 tablet, 3 Refills, Maintenance, 03/22/24 2:41:00 PM EDT, [facility], 180, cm, 04/09/248:29:00 EDT, Height, 99.2, kg, 09/22/23 15:11:00 EST, Dry Weight Start Date: 03/22/24 Status: Ordered Quantity: 260.0 Unit: tablet Repeat number: 1 HydroCORTisone 5 mg oral tablet See Instructions, PLEASE TAKE 2 TABLETS (10MG) IN THE MORNING AND 1 TABLET (5MG) AT 3PM 90 DAY SUPPLY Extra tablets for stress dosing if needed., # 320 tablet, 3 Refills, Maintenance, 02/23/25 1:40:00 PM EDT, [facility]/pharmacy #[id number], 182, cm, 02/22/25 9:08:00 EDT, Height, 108.3, kg, 10/03/24 14:01:00 EST,Dry Weight Start Date: 02/23/25 Stop Date: 02/23/26 Status: Ordered Quantity: 320.0 Unit: tablet Repeat number: 4 Indications: Other adrenocortical insufficiency; HYDROmorphone 4 mg oral tablet 1 tablet = 4 mg, By Mouth, Every 4 hours, PRN Pain , Moderate, 0 Refills, Maintenance, 10/25/24 1:45:00 PM EST, Partial fill upon patient request if the prescription is for a schedule II opioid drug. Start Date: 10/25/24 Status: Ordered Repeat number: 1 Hyper-Tavo 3.5% inhalation solution See Instructions, Use 4mL via nebulization twice a day as needed for cough/chest congestion. ICD-10J45.909 asthma, # 240 mL, 6 Refills, Maintenance, 07/13/24 3:42:00 PM EDT, [facility]/pharmacy #[id number], Partial fill upon patient request if the prescription is for a schedule II opioid drug., Use 4mL via nebulization twice a day as needed for cough/chest congestion. ICD-10 J45.909 asthma, 182, cm, 07/13/24 15:22:00 EDT, Height, 99.2, kg, 09/22/23 15:11:00 EST, Dry Weight Start Date: 07/13/24 Status: Ordered Quantity: 240.0 Unit: mL Repeat number: 7 lactulose 10 gm/15 ml oral syrup TAKE 30 ML BY MOUTH THREE TIMES A DAY NEEDED FOR 2 TO 3 BOWEL MOVEMENTS DAILY. MAY TAKE AN ADDITIONAL DOSE PER DAY Start Date: 07/20/23 Status: Ordered Repeat number: 1 Lancets See Instructions, # 300 each, Maintenance, used to check blood glucose four times daily, 03/02/25 12:28:00 PM EDT, Supply, 182, cm, 03/02/25 10:44:00 EDT, Height, 105, kg, 02/26/25 15:12:00 EDT, Dry Weight Start Date: 03/02/25 Status: Ordered Quantity: 300.0 Unit: each Repeat number: 1 Lantus Solostar Pen 100 units/mL subcutaneous solution See Instructions, 28 units Subcutaneous Injection Daily at bedtime. E11.9, # 30 mL, 5 Refills, Maintenance, 03/22/25 3:46:00 PM EDT, Solution, [id number], Partial fill upon patient request if the prescription is for a schedule II opioid drug., 182, cm, 03/22/25 14:42:00 EDT, Height, 105, kg,02/26/25 15:12:00 EDT, Dry Weight Start Date: 03/22/25 Status: Ordered Quantity: 30.0 Unit: mL Repeat number: 6 Leader brand blood pressure monitor Leader brand blood pressure monitor, See Instructions, # 1 each, Refills 0, Tot. Refills 0, Maintenance, Dx HTN I10, 07/27/23 8:27:00 AM EDT, Supply, 180, cm, 07/07/23 13:13:00 EDT, Height, 88.4, kg, 07/02/23 17:05:00 EDT, Dry Weight Start Date: 07/27/23 Status: Ordered Quantity: 1.0 Unit: each Repeat number: 1 Melatonin 5 mg oral tablet 1 tablet, By Mouth, Daily at bedtime, PRN NEEDED FOR INSOMNIA FOR, # 90 tablet, 3 Refills, Maintenance, 06/14/24 12:52:00 PM EDT, [facility], 182, cm, 06/02/24 15:01:00 EDT, Height, 99.2, kg, 09/22/23 15:11:00 EST, Dry Weight Start Date: 06/14/24 Stop Date: 07/14/24 Status: Ordered Quantity: 90.0 Unit: tablet Repeat number: 1 mirtazapine 30 mg oral tablet 1 tablet = 30 mg, By Mouth, Daily at bedtime, for sleep dosage adjustment, # 90 tablet, 1 Refills, Maintenance, 02/22/25 9:42:00 AM EDT, Tablet, [facility]/pharmacy #[id number], Partial fill upon patient request if the prescription is for a schedule II opioid drug., 182, cm, 02/22/25 9:08:00 EDT, Height, 108.3, kg, 10/03/24 14:01:00 EST, Dry Weight Start Date: 02/22/25 Status: Ordered Quantity: 90.0 Unit: tablet Repeat number: 2 montelukast 10 mg oral tablet 1, tablet, By Mouth, Daily at bedtime, # 90 tablet, Refills 1, Maintenance, 03/09/25 6:54:00 AM EDT,Route to Pharmacy Electronically, [id number], 182, cm, 03/06/25 8:22:00 EDT, Height, 105, kg, 02/26/25 15:12:00 EDT, Dry Weight Start Date: 03/09/25 Status: Ordered Quantity: 90.0 Unit: tablet Repeat number: 1 Nebulizer/Compressor See Instructions, # 1 each, Maintenance, Dx asthma. For use with albuterol., 07/01/23 3:08:00 PM EDT,Supply Start Date: 07/01/23 Status: Ordered Quantity: 1.0 Unit: each Repeat number: 1 NeilMed Sinus Rinse Saline Packets, dx sinusitis NeilMed Sinus Rinse Saline Packets, dx sinusitis, See Instructions, # 100 each, Refills 0, Tot. Refills 0, Maintenance, 1 box (100 packets), 02/02/24 10:26:00 AM EDT, Supply, 180, cm, 02/02/24 8:29:00 EDT, Height, 99.2, kg, 09/22/23 15:11:00 EST, Dry Weight Start Date: 02/02/24 Status: Ordered Quantity: 100.0 Unit: each Repeat number: 1 NetiPot Sinus Wash, Dx sinusitis ICD-10 J01.90 NetiPot Sinus Wash, Dx sinusitis ICD-10 J01.90, See Instructions, # 1 each, Refills 0, Tot. Refills0, Maintenance, NetiPot Sinus Wash, Dx sinusitis ICD-10 J01.90, 02/02/24 10:26:00 AM EDT, Supply, 180, cm, 02/02/24 8:29:00 EDT, Height, 99.2, kg, 09/22/23 15:11:00 EST, Dry Weight Start Date: 02/02/24 Status: Ordered Quantity: 1.0 Unit: each Repeat number: 1 pantoprazole 40 mg oral delayed release tablet 1 tablet, By Mouth, Daily at bedtime, # 90 tablet, 3 Refills, Maintenance, 12/09/24 11:22:00 AM EST,182, cm, 12/01/24 14:50:00 EST, Height, 108.3, kg, 10/03/24 14:01:00 EST, Dry Weight Start Date: 12/09/24 Status: Ordered Quantity: 90.0 Unit: tablet Repeat number: 1 Pen [place], 32 G x 4 mm BD Ultra Fine III See instructions, # 300 each, Refills 5, Tot. Refills 5, Maintenance, use as directed for Type 1 Diabetes Mellitus, 03/02/25 12:31:00 PM EDT, Supply, 182, cm, 03/02/25 10:44:00 EDT, Height, 105, kg, 02/26/25 15:12:00 EDT, Dry Weight Start Date: 03/02/25 Stop Date: 08/29/25 Status: Ordered Quantity: 300.0 Unit: each Repeat number: 6 rifAXIMin 550 mg oral tablet = 550 mg, By Mouth, 2 times a day, # 60 tablet, 0 Refills, Maintenance, 03/02/25 12:33:00 PM EDT, Tablet, [facility] 3, Partial fill upon patient request if the prescription is for a schedule II opioid drug., 182, cm, 03/02/25 10:44:00 EDT, Height, 105, kg, 02/26/25 15:12:00 EDT, Dry Weight Start Date: 03/02/25 Stop Date: 04/01/25 Status: Ordered Quantity: 60.0 Unit: tablet Repeat number: 1 rifAXIMin 550 mg oral tablet 1 Unknown, 0 Refill(s), 0 Refills, 04/04/25 8:00:00 PM EDT, Partial fill upon patient request if theprescription is for a schedule II opioid drug. Start Date: 04/04/25 Status: Ordered Repeat number: 1 rOPINIRole 0.25 mg oral tablet 1 OR 2 TABLET, By Mouth, Daily at bedtime, FOR RESTLESS LEG., # 60 tablet, 1 Refills, Maintenance, 04/25/25 12:27:00 PM EDT, [facility], 182, cm, 04/19/25 13:01:00 EDT, Height, 105, kg, 02/26/25 15:12:00 EDT, Dry Weight Start Date: 04/25/25 Status: Ordered Quantity: 60.0 Unit: tablet Repeat number: 1 Spacer Spacer, See Instructions, # 1 each, Refills 1, Tot. Refills 1, Maintenance, To be used with MDI as directed. ICD-10 J45.909 asthma, 09/21/23 5:21:00 PM EST, Supply, 180, cm, 09/21/23 15:41:00 EST, Height, 90.81, kg, 08/28/23 13:42:00 EDT, Dry Weight Start Date: 09/21/23 Status: Ordered Quantity: 1.0 Unit: each Repeat number: 2 spironolactone 25 mg oral tablet 50 mg, 2, tablet, By Mouth, Daily Start Date: 03/20/23 Status: Ordered Repeat number: 1 tadalafil 20 mg oral tablet 1 tablet = 20 mg, By Mouth, Daily, PRN as needed for erectile dysfunction, # 60 tablet, 3 Refills, Maintenance, 03/29/24 2:09:00 PM EDT, Tablet, [facility], Partial fill upon patient request if the prescription is for a schedule II opioid drug., 180, cm, 02/02/24 8:29:00 EDT, Height, 99.2, kg, 09/22/23 15:11:00 EST, Dry Weight Start Date: 03/29/24 Stop Date: 11/24/24 Status: Ordered Quantity: 60.0 Unit: tablet Repeat number: 4 ursodiol 500 mg oral tablet 1 tablet = 500 mg, By Mouth, 3 times a day Start Date: 09/15/22 Status: Ordered Repeat number: 1 Vitamin D3 1000 intl units oral tablet 1 tablet = 25 mcg, By Mouth, Daily, with food, # 90 tablet, 3 Refills, Maintenance, 03/07/25 7:55:00PM EDT, Tablet, [facility]/pharmacy #[id number], Partial fill upon patient request if the prescription is for a schedule II opioid drug., 182, cm, 03/06/25 8:22:00 EDT, Height, 105, kg, 02/26/25 15:12:00 EDT, DryWeight Start Date: 03/07/25 Status: Ordered Quantity: 90.0 Unit: tablet Repeat number: 4 Indications: Age-related osteoporosis without current pathological fracture; Vitamin D3 5000 intl units oral tablet 1 tablet = 125 mcg, By Mouth, Daily, with food, # 100 tablet, 0 Refills, Maintenance, 12/01/24 3:07:00 PM EST, Tablet, [facility]/pharmacy #[id number], Partial fill upon patient request if the prescription is for aschedule II opioid drug., 182, cm, 12/01/24 14:50:00 EST, Height, 108.3, kg, 10/03/24 14:01:00 EST,Dry Weight Start Date: 12/01/24 Status: Ordered Quantity: 100.0 Unit: tablet Repeat number: 1 Indications: Age-related osteoporosis without current pathological fracture; Vitamin D3 oral tablet 2 tablet, By Mouth, Daily, # 180 tablet, 11 Refills, Maintenance, 09/29/23 2:05:00 PM EST, [id number], 180, cm, 09/22/23 15:11:00 EST, Height, 99.2, kg, 09/22/23 15:11:00 EST, Dry Weight Start Date: 09/29/23 Stop Date: 10/29/23 Status: Ordered Quantity: 180.0 Unit: tablet Repeat number: 1 Wheeled walker with brakes Wheeled walker with brakes, See Instructions, # 1 each, Refills 0, Tot. Refills 0, Maintenance, Dx S92.301A, K74.60, M62.5,, 03/06/25 9:07:00 AM EDT, Supply Start Date: 03/06/25 Status: Ordered Quantity: 1.0 Unit: each Repeat number: 1 Problem List Condition Confirmation Course Effective Dates Status H ealth Status Informant Asthma Confirmed Active Back pain Confirmed Active Stage 3a chronic kidney disease (CKD) Confirmed Active Cirrhosis of liver Confirmed Active COVID-19 Confirmed Active GERD - Gastro-esophageal reflux disease Confirmed Active Jaundice Confirmed Active Myofascial muscle pain Confirmed Active Nephrolithiasis Confirmed Active Obese class I Confirmed Active Vertebral fracture, pathological Confirmed Active Peripheral neuropathy due to metabolic disorder Confirmed Active Pulmonary fibrosis, postinflammatory Confirmed Active Recurrent UTI - urinary tract infection Confirmed Active Type 2 diabetes mellitus Confirmed Active Social History Social History Type Response Smoking Status Never (less than 100 in lifetime) entered on: 09/22/23 Sex Sex Representation Male (finding) Patient Care team information Care Team Personnel Name: Rodrick Chris MD Position: [facility] Physician - Gastroenterology Member Role: Lifetime Consulting Physician Address: [address] [place] [address], [facility] [facility] [place] [address]- Telecom: Name: Marcos Tran RN Position: [facility] RN Member Role: Primary Care Nurse Name: Tere Hall RN Position: [facility] RN Member Role: Primary Care Nurse Name: Chet Arcos MD Position: [facility] Physician - Primary Care Member Role: PCP Address: [address] [place] [id number]- [place] Telecom: Name: Va Pruitt Position: [facility] Outreach Member Role: Lifetime Consulting Physician Name: Nallely Lindsey RN Position: [facility] RN Member Role: Primary Care Nurse Name: Alfredo Temple RN Position: [facility] SN RN Member Role: Primary Care Nurse Name: Aziza Prajapati RN Position: [facility] RN Member Role: Primary Care Nurse Name: José Manuel Paredes RN Position: [facility] RN Member Role: Primary Care Nurse Name: Ana Dubose RN Position: [facility] RN Member Role: Primary Care Nurse Name: Howie Bañuelos MD Position: [facility] Renal MD Member Role: Lifetime Consulting Physician Address: [address] [place], [place] [address] [place] [address]- [place] Telecom: Name: Fransisco Suarez RN Position: [facility] RN Member Role: Primary Care Nurse Name: Nelly Suazo RN Position: [facility] RN Member Role: Primary Care Nurse Name: Gabriela Santana RN Position: [facility] RN Member Role: Primary Care Nurse Name: Fatimah Fitch RN Position: [facility] RN Member Role: Primary Care Nurse Name: Phi Love DO Position: [facility] Renal MD Member Role: Lifetime Consulting Physician Address: [address] [facility] [address] [facility] [place] [address]- Telecom: Name: Denise Narayan Position: [facility] RN Member Role: Primary Care Nurse Name: Gisella Bee RN Position: [facility] RN Member Role: Primary Care Nurse Name: Chet Johnson RN Position: [facility] RN Member Role: Primary Care Nurse Name: Shanti Bullock RN Position: [facility] RN Member Role: Primary Care Nurse Name: Kassandra Nuno RN Position: [facility] RN Member Role: Primary Care Nurse Name: Meera Hart RN Position: [facility] AMB Nurse Member Role: Primary Care Nurse Name: Margo Lance RN Position: [facility] RN Member Role: Primary Care Nurse Name: Adela Snell RN Position: [facility] RN Member Role: Primary Care Nurse Name: Vandana Vail RN Position: [facility] RN Member Role: Primary Care Nurse Name: Grisel Ontiveros RN Position: [facility] RN Member Role: Primary Care Nurse Name: Анна Burnett RN Position: [facility] RN Member Role: Primary Care Nurse Name: Reyna Shea RN Position: [facility] RN Member Role: Primary Care Nurse Name: Jay Jay Ochoa MD Position: [facility] Renal MD Member Role: [employer] Consulting Physician Address: [address] [facility] [place] [address]- Telecom: Name: Etienne Morales RN Position: [facility] OB RN Member Role: Primary Care Nurse Name: Shandra Llanos RN Position: [facility] RN Member Role: Primary Care Nurse Name: Eliza Segal LPN Position: [facility] RN Member Role: Primary Care Nurse Name: Cassy Brown RN Position: [facility] RN Member Role: Primary Care Nurse Name: Kym Farnsworth RN Position: [facility] Hospital Bank Boss Member Role: Primary Care Nurse Name: Wilfred Caba LPN Position: [facility] RN Member Role: Primary Care Nurse Name: Mary Chase RN Position: [facility] RN Member Role: Primary Care Nurse Care Team Related Persons Name: FAY SUN Name: MAXIMO VILLEGAS Insurance Providers Guarantor name: NICOLA VILLEGAS [facility] Plan Information #: 1 Payer: [facility] Payer Identifier: NA Member Number: [id number] Group Number: [id number] Subscriber Identifier: [id number] Relationship to Subscriber: self Coverage Type: Medicare Managed Care (Includes Medicare Advantage Plans) Coverage Verification Date: NA Telecom: NA Address:
--- NOTE | ~2025-05-08 | CT_ITS ---
EXAMINATION: CT ABDOMEN AND PELVIS WITH CONTRAST CLINICAL INFORMATION: Irregular falls, intermittent abdominal discomfort. COMPARISON: No prior. Abdomen ultrasound 07/22/2024, MR abdomen 10/31/2022. TECHNIQUE: Multidetector volumetric images were obtained from the superior aspect of the liver through the pubic symphysis following administration 85 mL of Omnipaque 350 intravenous contrast. Sagittal and coronal reformatted images were obtained on the technologist's workstation. Oral contrast: No This CT examination was performed using dose optimization techniques as appropriate, variously including the following: *Automated exposure control *Adjustment of mA and/or kV according to patient size (this includes techniques or standardized protocols for targeted exams where dose is matched to indication/reason for exam; i.e. extremities or head) *Use of iterative reconstruction technique FINDINGS: LUNG BASES: Lung bases demonstrate mild subpleural scarring and dependent type atelectasis. No effusions. Heart size is normal. Normal GE junction. LIVER, GALLBLADDER, AND BILIARY TREE: The liver is diffusely enlarged with cirrhotic morphology and mildly heterogeneous in attenuation. There are a few scattered liver cysts, largest in segment 8 measuring 1.6 cm in diameter. There is no suspicious infiltrating hepatic mass identified. The gallbladder is surgically absent. There is trace perihepatic ascites present. PANCREAS: Unremarkable. SPLEEN: Enlarged, with AP diameter of 17.1 cm. There is a splenule abutting the posterior hilum. ADRENAL GLANDS: Unremarkable. KIDNEYS AND URETERS: The kidneys are normal in size, shape, and attenuation. No hydronephrosis, hydroureter, or right calculi seen. 2 mm nonobstructing calculus in the right kidney. No perinephric stranding. BLADDER: Unremarkable. GASTROINTESTINAL TRACT: The stomach is decompressed. The duodenum appears normal. The small bowel is normal in caliber and course. No wall thickening or inflammation present. The colon is normal in caliber and course without wall thickening or inflammation. No rectal abnormality. The appendix is normal. ABDOMINAL WALL: There has been left inguinal hernia repair. There is no discrete hernia identified. LYMPH NODES: No abnormal lymphadenopathy is present. VASCULAR: There are hepatic, splenic, gastric, splenic and renal, mesenteric, and abdominal wall varices present. The aorta is nonaneurysmal. There is no venous thrombosis. PELVIC VISCERA: The prostate and seminal vesicles are unremarkable. OSSEOUS STRUCTURES: There is kyphoplasty cement with a chronic compression deformity of T7. There is no suspicious lytic or blastic bone lesion. No acute bony abnormality. CT/CT abdomen pelvis w IV con IMPRESSION: 1. There is no acute abnormality in the abdomen or pelvis. 2. Hepatomegaly with cirrhotic morphology of the liver. No suspicious liver abnormality. There are stigmata of portal hypertension including hepatic, splenic, gastric, splenorenal, and mesenteric varices. 3. Splenomegaly. 4. Cholecystectomy. 5. There is a 2 mm nonobstructing calculus in the left kidney. 6. There is trace perihepatic ascites. 7. Chronic compression deformity of T7 with kyphoplasty cement. Electronically signed by: Abebe Hsu MD 05/08/2025 01:00 PM EDT
[2025-05-08 10:36] VITALS: BP 117/77; PULSE 85; RESP 16; TEMP 36.4; O2SAT 99; BMI 31.7
[2025-05-08 11:28] LABS: MANUAL DIFF FLAG NO
[2025-05-08 11:32] LABS: Hematocrit 47.3 % (42.0-52.0); Hemoglobin 15.5 g/dl (14.0-18.0); Imm Gran Abs Auto 0.04 X10*3/uL (0.00-0.03); Imm Gran Pct Auto 0.3 % (0.0-0.4); Lymphocytes Absolute Auto 1.6 X10*3/uL (1.2-4.9); Mean Corpuscular HGB Conc 32.8 g/dl (31.0-36.0); Mean Corpuscular Hemoglobin 29.5 pg (27.0-33.0); Mean Corpuscular Volume 90.1 fL (80.0-98.0); NRBC Abs Auto 0.000 X10*3/uL (0.0-0.012); NRBC Pct Auto 0.0 /100WBC (0.0-0.2); Platelet Count 182 X10*3/uL (160-400); Red Blood Count 5.25 X10*6/uL (4.60-5.80); White Blood Count 11.8 X10*3/uL (4.8-10.8)
[2025-05-08 11:40] LABS: INTERNATIONAL NORM RATIO 1.1 (0.9-1.1); Prothrombin Time 12.9 SEC (10.9-12.4)
--- NOTE | 2025-05-08 11:44 | ED.GENADULT ---
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 He states his constipation has been slightly relieved through taking lactulose and Gavilax, as his last bowel movement was yesterday 05/07 reported to be loose stool. The head bobbing and hand twitching is intermittent in nature, has improved today compared to the last few days but normally what happens when he has elevated ammonia. He is prescribed lactulose up to 3 times daily and has been taking it consistently. He denies dizziness, new jaundice, shortness of breath, chest pain, leg edema, genitourinary symptoms, or any other symptoms. His health care proxy states he seems slower than usual the past few days, the patient denies feeling confused or disoriented. He follows with Dr Winston (GI) and states he has not needed a paracentesis since his last visit to this ED, and the need for paracentesis is monitored regularly with ABD US. Patient states that he was last hospitalized in February of 2025 at [facility] after a fall. Onset (ago): day(s) Related Data Home Medications ?Medication ?Instructions ?Recorded ?Confirmed dicyclomine 10 mg capsule 10 mg PO QID PRN abdominal cramps 07/24/23 08/08/23 gabapentin 600 mg tablet 600 mg PO TID 07/24/23 08/08/23 montelukast 10 mg tablet 10 mg PO QPM 07/24/23 08/08/23 spironolactone 25 mg tablet 50 mg PO DAILY 07/24/23 08/08/23 ursodiol 500 mg tablet 500 mg PO TID 07/24/23 08/08/23 furosemide 20 mg tablet 40 mg PO DAILY 08/07/23 08/08/23 albuterol sulfate 2.5 mg/3 mL 2.5 mg inhalation Q6H PRN wheezing 08/08/23 08/08/23 (0.083 %) solution for nebulization albuterol sulfate 90 mcg/actuation 1 puff inhalation Q6H PRN wheezing 08/08/23 08/08/23 aerosol inhaler (Ventolin HFA) baclofen 10 mg tablet 10 mg PO TID 08/08/23 08/08/23 cabergoline 0.5 mg tablet 0.25 mg PO MOTH 08/08/23 08/08/23 cetirizine 10 mg tablet 10 mg PO DAILY 08/08/23 08/08/23 cholecalciferol (vitamin D3) 10 20 mcg PO DAILY 08/08/23 08/08/23 mcg (400 unit) tablet (Vitamin D3) dupilumab 300 mg/2 mL subcutaneous 300 mg subcut Q2W 08/08/23 08/08/23 pen injector (Dragon[employer]) fluticasone propionate 50 2 spray intranasal DAILY 08/08/23 08/08/23 mcg/actuation nasal spray,suspension hydrocortisone 5 mg tablet 5 mg PO DAILY 08/08/23 08/08/23 hydrocortisone 5 mg tablet 10 mg PO QAM 08/08/23 08/08/23 lactulose 10 gram/15 mL oral 30 ml PO DAILY PRN Constipation 08/08/23 08/08/23 solution melatonin 5 mg tablet 5 mg PO BEDTIME insomnia 08/08/23 08/08/23 mirtazapine 7.5 mg tablet 7.5 mg PO BEDTIME 08/08/23 08/08/23 multivitamin with folic acid 400 1 tab PO DAILY 08/08/23 08/08/23 mcg tablet (Daily-Nathaniel (with folic acid)) pantoprazole 40 mg tablet,delayed 40 mg PO BEDTIME 08/08/23 08/08/23 release ciprofloxacin HCl 250 mg tablet 250 mg PO DAILY infectious disease 12/11/23 12/11/23 Allergies Allergy/AdvReac Type Severity Reaction Status Date / Time amoxicillin Allergy Severe Hives Verified 05/08/25 10:38 meropenem AdvReac Severe liver Verified 05/08/25 10:38 failure quetiapine (From Seroquel) AdvReac Intermediate Blurry Verified 05/08/25 10:38 Vision Review of Systems Constitutional: Constitutional: Reports as per HPI, Denies chills, Denies fever(s), Denies night sweats and Reports weakness Eyes: Eyes: Reports no additional eye complaints, Denies blurry vision, Denies change in vision, Denies diplopia, Denies eye discharge, Denies loss of vision and Denies eye pain ENT: Denies dizziness Cardiovascular: Cardiovascular: Reports no additional cardiovascular complaints, Denies chest pain, Denies lightheadedness, Denies Loss of Consciousness and Denies dyspnea Respiratory: Respiratory: Reports no additional respiratory complaints and Denies dyspnea Gastrointestinal: Gastrointestinal: Reports no additional gastrointestinal complaints, Reports abdominal pain (intermittent), Denies melena, Denies hematochezia, Reports change in bowel habits, Reports change in stool character, Reports constipation, Reports loose stools (after taking lactulose and Gavilax), Reports nausea and Denies vomiting Genitourinary: Genitourinary: Reports no additional male genitourinary complaints, Denies hematuria, Denies oliguria, Denies difficulty urinating, Denies dysuria, Denies urinary frequency, Denies urinary hesitancy, Denies urinary incontinence and Denies urinary urgency Musculoskeletal: Musculoskeletal: Reports no additional musculoskeletal complaints, Denies numbness and Denies tingling Neurologic: Denies dizziness, Denies loss of vision, Denies numbness, Denies tingling, Reports tremor(s) ( twitchy hands and involuntary head bobbing) and Reports weakness Psychiatric: Psychiatric: Reports no additional psychiatric complaints Endocrine: Endocrine: Reports no additional endocrine complaints Hematologic/Lymphatic: Hematologic/Lymphatic: Reports no additional hematologic/lymphatic complaints Allergic/Immunologic: Allergic/Immunologic: Reports no additional allergic/immunologic complaints [facility] Past Medical History Attestation statement: The following information was validated with the patient. (all information validated with the patient's ) Source: old records reviewed, obtained from family (patient's provided additional history and confirmed the history provided by the patient. ) and nursing notes reviewed Medical History Myofascial pain syndrome GERD (gastroesophageal reflux disease) Pulmonary fibrosis History of type 2 diabetes mellitus Hepatic cirrhosis Ascites COVID-19 Asthma Surgical History Hx of tracheostomy History of left inguinal hernia repair Hx of cholecystectomy History of ERCP Social History Social History Household Members: Spouse and Children Housing: House Are you a primary wound care technician to a significant other at home: No Do you presently have visiting nurse or other home services: Yes Alcohol intake: former Patient Tobacco Use Status: Never used Tobacco Advance Directives: Yes Advance Directives Information Provided: Yes Advance Directives on File: No Do you have a plan to hurt others: No Plan service: No Physical Exam ED Vital Signs: Vital Signs - 24 hr 05/08/25 10:36 05/08/25 13:03 Temperature 97.5 F Pulse Rate 85 81 Respiratory Rate 16 15 Blood Pressure 117/77 123/76 Pulse Oximetry 99 97 Oxygen Delivery Method Room Air Room Air BMI result Body Mass Index 31.7 Const General: cooperative, no acute distress, alert and awake Nutritional Appearance: well nourished Orientation/consciousness: patient oriented x3 HENMT Head: Yes normal to inspection and Yes atraumatic Ears: hearing grossly normal bilaterally and external ears normal General nose exam: Normal external nose present, no nasal discharge noted and no epistaxis Face and sinus: Yes normal facial exam, No abrasion and No laceration Mouth: Normal oral and palatal mucosa present, no drooling and no muffled voice Eyes General: appearance normal, both eyes and all related structures Periorbital: periorbital findings normal Eyelids: Yes eyelids normal Conjunctivae: conjunctivae normal Sclerae: sclerae normal Pupils: Equal, round and reactive pupils present EOM: EOMs intact bilaterally Neck Neck: Yes normal visual inspection, Yes full ROM and Yes no lymphadenopathy Resp Effort & Inspection: normal respiratory effort and able to speak in complete sentences GI Inspection: Yes distended Palpation (GI): Firmness to palpation present (GI), nontender, no guarding, not rigid and No Ascites present Skin General skin exam: no jaundice Neuro Other: +asterixis General: patient oriented x3, moves all extremities and CN's II-XI intact bilaterally Cranial nerves: Yes Equal, round and reactive pupils present Cognition (Neuro): normal cognition Extrem General: Yes normal to inspection, Yes full ROM and Yes capillary refill normal Psych Appearance: grossly normal Mental Status: mental status grossly normal Affect: normal affect Attitude: cooperative Thought process: Normal thought process present Thought content: Normal thought content present Insight: Good insight present (Psych) Medications Administered Discontinued Medications Generic Name Dose Route Start Last Admin Trade Name Louis PRN Reason Stop Dose Admin Sodium Chloride 1,000 mls @ 999 mls/hr 05/08/25 13:15 05/08/25 13:46 Ns IV 05/08/25 14:15 999 mls/hr .Q1H1M ABDIEL Administration Iohexol 100 ml 05/08/25 12:37 05/08/25 12:37 Iohexol 350 Mg/Ml 100 Ml Infus..Btl IV 05/08/25 12:38 100 ml ONCE ONE Administration Medical Decision Making Medical Decision Making MDM Narrative: Patient is a 50 year old male with past medical history of drug-induced cirrhosis (Meropenem) with multiple episodes of hepatic encephalopathy, 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 Patient's physical exam was as noted in the physical exam portion of this note. Patient's asterixis positive. Patient's blood work showed a chronically elevated WBC count of 11.8, chronically elevated LFTs including bilirubin of 2.4, direct bili of 1.5, AST 78, ALT 45, alk phos 329, an elevated calcium of 10.4, an elevated ammonia of 58, elevated CR of 1.57, and an elevated BUN of 26. Patient's CT abd/pelvis showed no acute process. Patient's clinical presentation is not consistent with sepsis (@1400). Patient's clinical presentation is most consistent with elevated ammonia in the setting of cirrhosis as well as an CHELSEA. I spoke with the hospitalist team who agreed to admission. I explained my physical exam findings as well as all test results to the patient and the patient's . I answered all questions asked by the patient and the patient's . Patient and the patient's verbalized agreement and understanding with this treatment plan and admission. Differential Diagnosis Differential Diagnoses: The differential diagnosis associated with the presentation includes Elevated ammonia Constipation CHELSEA Admission/Observation Consideration of admission/observation: Escalation of care including admission/observation considered Patient admitted as noted in the MDM Rationale portion of this note. Consult Healthcare Provider Management of the patient was discussed with: Hospitalist (agreed to admission as noted in the MDM Rationale portion of this note. ) Lab Data [facility] Lab Attestation statement: I reviewed the patient's lab results. My interpretation of these results are in the MDM Rationale portion of this note. 05/08/25 11:24 05/08/25 11:24 Labs: Lab Results 05/08/25 05/08/25 Range/Units 11:24 12:20 WBC 11.8 H (4.8-10.8) X10*3/uL RBC 5.25 (4.60-5.80) X10*6/uL Hgb 15.5 (14.0-18.0) g/dl Hct 47.3 (42.0-52.0) % MCV 90.1 (80.0-98.0) fL MCH 29.5 (27.0-33.0) pg MCHC 32.8 (31.0-36.0) g/dl RDW 16.5 H (11.0-16.0) % Plt Count 182 (160-400) X10*3/uL MPV 10.3 (9.4-12.4) fL Immature Gran % (Auto) 0.3 (0.0-0.4) % Neut % (Auto) 76.1 H (45-73) % Lymph % (Auto) 13.2 L (20-40) % [place] % (Auto) 8.1 (2-11) % Eos % (Auto) 1.5 (0-4) % Baso % (Auto) 0.8 (0-2) % Lymph # (Auto) 1.6 (1.2-4.9) X10*3/uL [place] # (Auto) 1.0 (0.1-1.2) X10*3/uL Eos # (Auto) 0.2 (0.0-0.4) X10*3/uL Baso # (Auto) 0.1 (0.0-0.2) X10*3/uL Abs Immat Gran (auto) 0.04 H (0.00-0.03) X10*3/uL Absolute Neuts (auto) 9.0 H (2.0-8.3) x10*3/uL Absolute Nucleated RBC 0.000 (0.0-0.012) X10*3/uL Nucleated RBC % (auto) 0.0 (0.0-0.2) /100WBC PT 12.9 H (10.9-12.4) SEC INR 1.1 (0.9-1.1) Sodium 140 (135-145) mmol/L Potassium 4.2 (3.3-5.1) mmol/L Chloride 105 (96-108) mmol/L Carbon Dioxide 24 (22-29) mmol/L Anion Gap 15 (12-20) BUN 26 H (9-16) mg/dL Creatinine 1.57 H (0.5-1.4) mg/dL Estim Creat Clear Calc 72.4 Estimated GFR 47 Random Glucose 89 (60-115) mg/dL Calcium 10.4 H D (8.4-10.2) mg/dL Magnesium 2.6 (1.6-2.6) mg/dL Total Bilirubin 2.4 H (0.0-1.0) mg/dL Direct Bilirubin 1.5 H (0.0-0.5) mg/dL AST 78 H (5-37) U/L ALT 45 H (0-40) U/L Alkaline Phosphatase 329 H (39-117) U/L Ammonia 58 H (13-55) umol/L Total Protein 7.5 (6.5-8.0) g/dL Albumin 3.8 (3.5-5.0) g/dL Lipase 53 (8-78) U/L Independent Interpretation I performed an independent interpretation of an: CT Scan Interpretation: My interpretation is in agreement with the radiologist's impression of this imaging study. Report Number: [id number]: Total DLP = 1361.00 mGy-cm EXAMINATION: CT ABDOMEN AND PELVIS WITH CONTRAST CLINICAL INFORMATION: Irregular falls, intermittent abdominal discomfort. COMPARISON: No prior. Abdomen ultrasound 07/22/2024, MR abdomen 10/31/2022. TECHNIQUE: Multidetector volumetric images were obtained from the superior aspect of the liver through the pubic symphysis following administration 85 mL of Omnipaque 350 intravenous contrast. Sagittal and coronal reformatted images were obtained on the technologist's workstation. Oral contrast: No This CT examination was performed using dose optimization techniques as appropriate, variously including the following: *Automated exposure control *Adjustment of mA and/or kV according to patient size (this includes techniques or standardized protocols for targeted exams where dose is matched to indication/reason for exam; i.e. extremities or head) *Use of iterative reconstruction technique FINDINGS: LUNG BASES: Lung bases demonstrate mild subpleural scarring and dependent type atelectasis. No effusions. Heart size is normal. Normal GE junction. LIVER, GALLBLADDER, AND BILIARY TREE: The liver is diffusely enlarged with cirrhotic morphology and mildly heterogeneous in attenuation. There are a few scattered liver cysts, largest in segment 8 measuring 1.6 cm in diameter. There is no suspicious infiltrating hepatic mass identified. The gallbladder is surgically absent. There is trace perihepatic ascites present. PANCREAS: Unremarkable. SPLEEN: Enlarged, with AP diameter of 17.1 cm. There is a splenule abutting the posterior hilum. ADRENAL GLANDS: Unremarkable. KIDNEYS AND URETERS: The kidneys are normal in size, shape, and attenuation. No hydronephrosis, hydroureter, or right calculi seen. 2 mm nonobstructing calculus in the right kidney. No perinephric stranding. BLADDER: Unremarkable. GASTROINTESTINAL TRACT: The stomach is decompressed. The duodenum appears normal. The small bowel is normal in caliber and course. No wall thickening or inflammation present. The colon is normal in caliber and course without wall thickening or inflammation. No rectal abnormality. The appendix is normal. ABDOMINAL WALL: There has been left inguinal hernia repair. There is no discrete hernia identified. LYMPH NODES: No abnormal lymphadenopathy is present. VASCULAR: There are hepatic, splenic, gastric, splenic and renal, mesenteric, and abdominal wall varices present. The aorta is nonaneurysmal. There is no venous thrombosis. PELVIC VISCERA: The prostate and seminal vesicles are unremarkable. OSSEOUS STRUCTURES: There is kyphoplasty cement with a chronic compression deformity of T7. There is no suspicious lytic or blastic bone lesion. No acute bony abnormality. CT/CT abdomen pelvis w IV con IMPRESSION: 1. There is no acute abnormality in the abdomen or pelvis. 2. Hepatomegaly with cirrhotic morphology of the liver. No suspicious liver abnormality. There are stigmata of portal hypertension including hepatic, splenic, gastric, splenorenal, and mesenteric varices. 3. Splenomegaly. 4. Cholecystectomy. 5. There is a 2 mm nonobstructing calculus in the left kidney. 6. There is trace perihepatic ascites. 7. Chronic compression deformity of T7 with kyphoplasty cement. Electronically signed by: Abebe Hsu MD 05/08/2025 01:00 PM EDT RP Dictated By: Abebe Hsu MD Signed By: Electronically signed by Abebe Hsu MD DD/ [id number] Radiology Impression Discussion of test interpretation with radiology: I have reviewed the radiologist's reading. Independent Historian Clinical information obtained from an independent historian. History obtained from or confirmed by: Spouse (Patient's provided additional history and confirmed the history provided by the patient. ) Critical Care Time Critical Care Time Critical Care Time: Yes Total Critical Care Time: 38 Attestation: I spent 38 minutes of Critical Care Time with this patient. This does not include time spent on separately reported billable procedures. Discharge Plan Discharge Clinical Impression: Increased ammonia level, Asterixis, CHELSEA (acute kidney injury) Patient Disposition: Admitted As Inpatient
[2025-05-08 11:54] LABS: Alanine Aminotransferase 45 U/L (0-40); Albumin Level 3.8 g/dL (3.5-5.0); Alkaline Phosphatase 329 U/L (39-117); Anion Gap 15 (12-20); Aspartate Amino Transferase 78 U/L (5-37); Blood Urea Nitrogen 26 mg/dL (9-16); Calcium 10.4 mg/dL (8.4-10.2); Carbon Dioxide 24 mmol/L (22-29); Chloride 105 mmol/L (96-108); Creatinine Clr Calc Pharmacy 72.4; Estimated Glomerular Filt Rate 47; Lipase 53 U/L (8-78); Magnesium 2.6 mg/dL (1.6-2.6); Potassium 4.2 mmol/L (3.3-5.1); Sodium 140 mmol/L (135-145); Total Protein 7.5 g/dL (6.5-8.0)
[2025-05-08 12:32] LABS: Ammonia 58 umol/L (13-55)
[2025-05-08] MEDS: iohexoL 350 MG/ML 100 ML INFUS..BTL IV (12:37)
--- OUTSIDE RECORDS SUMMARY | 2025-05-08 12:54 | XMS_ITS | Encounter Summary ---
Author Organization [facility] Address [address] [place] [address] Phone Care Team Providers Care Bread And Pastry Baker Name Role Phone Chet Arcos Primary Care Provider [phone] Encounter Details Date Type Department Care Team (Late Contact Info) Description 07/23/2023 Documentation Only [facility] [address] [place] [phone] Howie Bañuelos MD [address] [place] [address] [place] [phone] Social History Tobacco Use Types Packs/Day Years Used Date Smoking Tobacco: Never Assessed Sex and Gender Information Value Date Recorded Sex Assigned at Not on file Legal Sex Male 10:47 AM EDT Gender Identity Not on file Sexual Orientation Not on file documented as of this encounter Plan of Treatment Upcoming Encounters Date Type Department Care Team (Late Contact Info) Description 08/17/2025 4:00 PM EDT Office Visit [facility] [address] [place] [address] Howie Bañuelos MD [address] [place] [address] [place] [phone] Scheduled Orders Name Type Priority Associated Diagnoses Orde r Schedule CBC and differential Lab Routine Stage 3 chronic kidney disease, not otherwise specified (HCC) Expected: 07/23/2023, Expires: 08/22/2024 Renal function panel Lab Routine Stage 3 chronic kidney disease, not otherwise specified (HCC) Expected: 07/23/2023, Expires: 08/22/2024 Urinalysis with microscopic Lab Routine Stage 3 chronic kidney disease, not otherwise specified (HCC) Expected: 07/23/2023, Expires: 08/22/2024 Urine Albumin / Creatinine Ratio Lab Routine Stage 3 chronic kidney disease, not otherwise specified (HCC) Expected: 07/23/2023, Expires: 08/22/2024 documented as of this encounter Procedures Procedure Name Priority Date/Time Associated Diagnosis Comments RP10+2AC (HC) Routine 06/13/2024 8:52 AM EDT CBC AND DIFFERENTIAL Routine 06/13/2024 8:52 AM EDT documented in this encounter Results * (ABNORMAL) CBC and Differential (06/13/2024 8:52 AM EDT) WBC 15.2(H) 3.4 - 10.8 x10E3/uL [facility] RBC 5.15 4.14 - 5.80 x10E6/uL [facility] Hemoglobin 15.0 13.0 - 17.7 g/dL [facility] Hematocrit 45.5 37.5 - 51.0 % [facility] MCV 88 79 - 97 fL [facility] MCH 29.1 26.6 - 33.0 pg [facility] MCHC 33.0 31.5 - 35.7 g/dL [facility] RDW 15.5(H) 11.6 - 15.4 % [facility] Platelets 189 150 - 450 x10E3/uL [facility] Neutrophils Relative 75 Not Estab. % [facility] Lymphocytes Relative 13 Not Estab. % [facility] Monocytes 8 Not Estab. % [facility] Eosinophils Relative 2 Not Estab. % [facility] Basophils Relative 1 Not Estab. % [facility] Neutrophils Absolute 11.6(H) 1.4 - 7.0 x10E3/uL [facility] Lymphocytes Absolute 1.9 0.7 - 3.1 x10E3/uL [facility] Monocytes Absolute 1.2(H) 0.1 - 0.9 x10E3/uL [facility] Eosinophils Absolute 0.3 0.0 - 0.4 x10E3/uL [facility] Basophils Absolute 0.1 0.0 - 0.2 x10E3/uL [facility] Immature Granulocytes 1 Not Estab. % [facility] Immature Grans (Absolute) 0.1 0.0 - 0.1 x10E3/uL [facility] 06/13/2024 8:52 AM EDT 06/13/2024 us Howie Bañuelos MD LAB BLOOD ORDERABLES Final Re sult [facility] [address] [place] [address] * (ABNORMAL) RP10+2AC (06/13/2024 8:52 AM EDT) Glucose 100(H) 70 - 99 mg/dL [facility] Uric Acid 6.2 3.8 - 8.4 mg/dL [facility] Comment:Therapeutic target f or gout patients: <6.0 BUN 17 6 - 24 mg/dL [facility] Creatinine 1.31(H) 0.76 - 1.27 mg/dL [facility] eGFR CKD-EPI CR 2020 68 >59 mL/min/1.7 3 [facility] BUN/Creatinine Ratio 13 9 - 20 [facility] Sodium 142 134 - 144 mmol/L [facility] Potassium 4.4 3.5 - 5.2 mmol/L [facility] Chloride 104 96 - 106 mmol/L [facility] Bicarbonate (CO2) 25 20 - 29 mmol/L [facility] Anion Gap 13.0 10.0 - 18.0 mmol/L [facility] Calcium 9.2 8.7 - 10.2 mg/dL [facility] Total Protein 6.4 6.0 - 8.5 g/dL [facility] Albumin 3.6(L) 4.1 - 5.1 g/dL [facility] Globulin 2.8 1.5 - 4.5 g/dL [facility] Phosphorus 3.4 2.8 - 4.1 mg/dL [facility] 06/13/2024 8:52 AM EDT 06/13/2024 us Howie Bañuelos MD LAB [id number] SOLICITED RESULTS Final Result [facility] [address] [place] [address] documented in this encounter Visit Diagnoses Diagnosis Stage 3 chronic kidney disease, not otherwise specified (HCC)- Primary documented in this encounter Care Teams Bread And Pastry Baker Relationship Specialty Start Date End Date Chet Arcos [address] [place] [id number] PCP - General 03/04/22 documented as of this encounter
--- OUTSIDE RECORDS SUMMARY | 2025-05-08 12:54 | XMS_ITS | Data Portability ---
Author Organization [place] [facility] Address [address] [place] [phone] Care Team Providers Care Saddle Maker Name Role Phone [facility] Primary Care P ovi Assessment Encounter Date Assessment Date Assessment LastModified by Organization Details LastModified Time 07/20/2023 07/20/2023 Time On Scene with Patient: 00:52:45 - Emergent 911 transport: Patient is critically ill and required immediate transport by a 911/emergency vehicle due to critical illness requiring immediate intervention Brief Overview: 48 y/o male c/o mid back pain x 2 days now. no injury. pain improved with hydromorphone. pt also has cough and feels weak. he denies any cp, sob, wheezing, fever. no nausea, vomiting, diarrhea, constipation. pt's reports pt is unable to ambulate on his own since yesterday and since last night he has become more confused and repeating himself. she has also noticed he is having new twitches every now and then. is worried as he presented this way the last time he was hospitalized due to Cirrhosis and high amonia levels. Vital Signs: BP 84/62, repeat BP 84/54, HR 127, repeat HR 124, RR 24, T 100.2, O2 97% RA Exam: 48 y/o male chronically ill appearing, alert NAD sitting on couch. lungs: tachypneic, CTAB no wheezes rales or rhonchi. heart: Tachycardic regular rhythm, no murmur rubs or gallops. no peripheral edema. no calf tenderness or edema, negative homans. eyes: icterus bilaterally. skin: warm and dry no rashes or lesions. strength is normal and equal bilaterally. no dysarthria. cranial nerves III-XII intact. DDx considered, with rationale: PE: considered due to tachycardia but no hypoxia. Pneumonia: considered due to cough, tachypnea and pt is febrile, but lungs are clear. Sepsis: considered due to abnormal VS and pt is febrile. Hyperammonemia: considered due to hx of Cirrhosis, and reported weakness, confusion. Results/ work up: n/a Proper Personal Protective Equipment (PPE), including gloves, eye protection and masks were donned and doffed appropriately and all equipment cleaned using approved technique with germicidal disposable wipes prior to and after care of this patient according to [facility]'s infection prevention protocols. Not available 07/20/2023 10:53:34 Plan of Treatment Reminders Order Date Submit Date Provider Last Modified By Organization Details Last Modified Time Details Appointments None record ed. Lab None record ed. Referral None record ed. Procedures None record ed. Surgeries None record ed. Imaging None record ed. Medication Orders None record ed. Patient TargetsNo targets recorded. Patient Instructions Encounter Date Encounter Id Patient Instructions Last Modified By Organization Details Last Modified Time 07/20/2023 [id number] Thank you for yo ur visit with [facility] today. We cannot always find the exact cause of your symptoms during your initial visit. Please follow up with your primary care provider or specialist within 24-48 hours to be rechecked or seek medical attention if your symptoms do not go away or get worse. If you develop any new or worsening symptoms and need after hours care, please go to nearest ER and/or call 911. If you have additional concerns or develop a change in your condition between 8am-10pm, please call [facility] at [phone] to help navigate your care. [email or web address] Not available 07/20/2023 10:56:21 Reason for Referral None Reported. Procedures Surgical History Date Name Laterality Status Provider Name and Address Organization Details Recorded Time Cholecystectomy completed EDELMIRA Ruiz [address] [place], [address], [place] [facility] 07/20/2023 09:56:26 Hernia Repair completed EDELMIRA Ruiz [address], [place], [address], [place] [facility] 07/20/2023 09:56:36 Imaging Results None recorded. Procedure Notes None recorded. Medical Equipment None Reported. Allergies Allergen ID Allergen Name Allergen Category Reaction Reaction Severity Criticality Documentation Date Start Date Code Code System Note Provider Name and Address Organization Details Recorded Time 407711 amoxicill in medicatio n Not available Not available Not available 07/20/2023 723 [facility] Dainne Lymandwin, PA [address], [place], [address], [place] [facility] 3 09:52:36 [id number] Seroquel medicatio n Not available Not available Not available 07/20/2023 99563 [facility] Dianne Berg, PA [address], [place], [address], [place] [facility] 3 09:52:42 [id number] meropenem medicatio n Not available Not available Not available 07/20/2023 69249 [facility] Dianne Lymandwin, PA [address], [place], [address], [place] [facility] 3 10:11:58 Medications Name Sig Start Date Stop Date Status Note LastModified by Organization Details LastModified Time hydrocortis one 5 mg tablet PLEASE TAKE 2 TABLETS (10MG) IN THE MORNING AND 1 TABLET (5MG) AT 3PM 90 DAY SUPPLY active Not Available Not Available No t Available prednisone 10 mg tablet PLEASE SEE ATTACHED FOR DETAILED DIRECTION S 07/20 completed Not Available Not Available Not Available gabapentin 600 mg tablet TAKE 1 TABLET BY MOUTH 3 TIMES A DAY FOR 30 DAYS active Not Available Not Available No t Available doxycycline hyclate 100 mg capsule TAKE 1 CAPSULE BY MOUTH TWICE A DAY FOR 10 DAYS 07/20 completed Not Available Not Available Not Available albuterol sulfate 2.5 mg/3 mL (0.083 %) solution for nebulizatio n INHALE THE CONTENTS OF 1 VIAL VIA NEBULIZER EVERY 6 HOURS NEEDED FOR WHEEZING active Not Available Not Available No t Available cetirizine 10 mg tablet TAKE 1 TABLET BY MOUTH EVERY DAY active Not Available Not Available No t Available clarithromy bob 500 mg tablet TAKE 1 TABLET BY MOUTH EVERY DAY 07/20 completed Not Available Not Available Not Available naltrexone 50 mg tablet TAKE 1/2 TO 1 TABLET BY MOUTH DAILY FOR ITCHING 30 active Not Available Not Available No t Available FreeStyle Lancets 28 gauge USE DIRECTED FOR TYPE 2 DIABETES MELLITUS active Not Available Not Available No t Available prednisone 20 mg tablet TAKE 1 TABLET BY MOUTH EVERY DAY FOR 5 DAYS 07/20 completed Not Available Not Available Not Available prednisone 5 mg tablet TAKE 3 & 1/2 TABS BY MOUTH DAILY X 5 DAYS, 3 TABS X 10 DAYS, THEN 2 TABS X 10 DAYS 07/20 completed Not Available Not Available Not Available spironolact one 25 mg tablet TAKE 1 TAB ORALLY EVERY DAY, BUT INCREASE TO 2 TABS IF THE FLUID IN LEGS AND/OR ABDOMEN INCREASES active Not Available Not Available No t Available hydromorpho ne 2 mg tablet TAKE 1 TABLETS BY MOUTH EVERY 6 HOURS NEEDED FOR MODERATE PAIN active Not Available Not Available No t Available Vitamin D3 10 mcg (400 unit) tablet TAKE 2 TABS BY MOUTH DAILY FOR 30 DAYS active Not Available Not Available No t Available baclofen 10 mg tablet TAKE 1 TABLET BY MOUTH 3 TIMES A DAY FOR 14 DAYS active Not Available Not Available No t Available prednisone 2.5 mg tablet TAKE 1 TABLET BY MOUTH EVERY DAY 07/20 completed Not Available Not Available Not Available pantoprazol e 40 mg tablet,maco yed release TAKE 1 TABLET BY MOUTH AT BEDTIME active Not Available Not Available No t Available cabergoline 0.5 mg tablet TAKE 1 TABLET BY MOUTH EVERY THURSDAY AND THURSDAY active Not Available Not Available No t Available BD Luer-Avinash Syringe 3 mL 25 gauge x 1 TO BE USED WITH SOLU-TONJA EF active Not Available Not Available No t Available Advair Diskus 500 mcg-50 mcg/dose powder for inhalation INHALE 1 PUFF BY MOUTH TWICE A DAY active Not Available Not Available No t Available gabapentin 300 mg capsule PLEASE SEE ATTACHED FOR DETAILED DIRECTION S 07/20 completed Not Available Not Available Not Available montelukast 10 mg tablet TAKE 1 TABLET BY MOUTH EVERYDAY AT BEDTIME active Not Available Not Available No t Available furosemide 20 mg tablet TAKE 1 TABLET BY MOUTH EVERY DAY active Not Available Not Available No t Available levofloxaci n 750 mg tablet TAKE 1 TABLET BY MOUTH EVERY DAY FOR 5 DAYS 07/20 completed Not Available Not Available Not Available fluticasone propionate 50 mcg/actuati on nasal spray,suspe nsion USE 2 SPRAYS IN EACH NOSTRIL DAILY active Not Available Not Available No t Available dicyclomine 10 mg capsule TAKE 1 TO 2 CAPSULES BY MOUTH EVERY 6 HOURS NEEDED FOR ABDOMINAL CRAMPS/GA S/DISCOMF ORT 07/20 completed Not Available Not Available Not Available Ventolin HFA 90 mcg/actuati on aerosol inhaler INHALE 1 PUFFS INTO LUNGS EVERY 6 HOURS, NEEDED FOR WHEEZING active Not Available Not Available No t Available oxycodone 5 mg tablet TAKE 1 TABLET BY MOUTH EVERY 6 HOURS, NEEDED FOR PAIN. TAKE ONLY NEEDED FOR SEVERE PAIN. 07/20 completed Not Available Not Available Not Available Vitamin D3 25 mcg (1,000 unit) capsule TAKE 1 CAPSULE BY MOUTH EVERY DAY active Not Available Not Available No t Available ursodiol 500 mg tablet TAKE 1 TABLET BY MOUTH 3 TIMES A DAY 30 DAYS active Not Available Not Available No t Available lactulose 10 gram/15 mL oral solution TAKE 30 ML BY MOUTH THREE TIMES A DAY NEEDED FOR 2 TO 3 BOWEL MOVEMENTS DAILY. MAY TAKE AN ADDITIONA L DOSE PER DAY active Not Available Not Available No t Available pregabalin 25 mg capsule TAKE 1 CAPSULE BY MOUTH 3 TIMES A DAY FOR 30 DAYS 07/20 completed Not Available Not Available Not Available melatonin 5 mg tablet TAKE 1 TABLET BY MOUTH EVERY DAY AT BEDTIME NEEDED FOR INSOMNIA FOR 30 DAYS active Not Available Not Available No t Available Senexon-S 8.6 mg-50 mg tablet TAKE 1 TABLET BY MOUTH TWICE A DAY NEEDED FOR CONSTIPAT ION *TAKE DAILY IF TAKING HYDROMORP DARIN active Not Available Not Available No t Available Solu-Cortef Act-O-Vial (PF) 100 mg/2 mL solution for injection INJECT 100 MG INTRAMUSC ULAR ONCE USE IN THE EVENT OF AN EMERGENCY (UNABLE TO TAKE ORAL STEROIDS) . active Not Available Not Available No t Available Incruse Ellipta 62.5 mcg/actuati on powder for inhalation INHALE 1 PUFF EVERY 24 HOURS DOSES SHOULD BE TAKEN AT LEAST 24 HOURS APART active Not Available Not Available No t Available baclofen 5 mg tablet TAKE 1 TABLET BY MOUTH THREE TIMES A DAY 07/20 completed Not Available Not Available Not Available Dupixent 300 mg/2 mL subcutaneou s pen injector active Not Available Not Available Not Available Daily-Nathaniel (with folic acid) 400 mcg tablet TAKE 1 TABLET BY MOUTH EVERY DAY FOR 30 DAYS active Not Available Not Available No t Available Vitals Date Recorded Respiratory rate Heart rate Oxygen saturation Oxygen saturation in Arterial blood by Pulse oximetry Body temperature Systolic And Diastolic Provider Name and Address Organization Details Last Updated DateTime 3 24 /min 127 /min 97 % 97 % 100.2 [degF] 84/62 mm[Hg] Not Available [facility] 3 09:55:47 Social History Question Answer Notes LastModified by Bplats Details LastModified Time Tobacco Smoking Status Never Smoker EDELMIRA Ruiz [address] [place], [address], [place] [facility] 07/20/2023 09:56:16 Does This Patient Have A PCP? Yes [email or web address] Information not available 07/20/2023 Has The Patient Seen Their PCP In The Past 6 Months? Yes [email or web address] Information not available 07/20/2023 Sex: Unknown Functional Status Question Answer Note LastModified by Bplats Details LastModified Time Do you use any illicit or recreational drugs? No [email or web address] Information not available 07/20/2023 What is your level of alcohol consumption? None [email or web address] Information not available 07/20/2023 Mental Status None recorded. Family History Nothing Reported. Medical History Condition Response Diabetes N Coronary Artery Disease N CHF N Parkinson's Disease N Cancer N Dementia N Stroke N Depression N Asthma Y COPD N Hypothyroidism N High Cholesterol N Rheumatoid Arthritis N Pulmonary Embolism N Hypertension N A-fib N Osteoporosis N Kidney Disease N Past Encounters Encounter ID Performer Location Encounter Start Date Encounter Closed Date Diagnosis/Indication Diagnosis SNOMED-CT Code Diagnosis ICD10 Code Diagnosis Note [id number] EDELMIRA Ruiz [facility] [address] [place] [address] 07/20/2023 09:50:32 07/23/2023 14:23:16 Tachycardia 1238716 R00.0 Status of condition: Acute. Testing/Re sults: HR 127 on scene. repeat HR 124. Discussion :I discussed with pt and his I advise urgent evaluation in the ER to r/o infection/ sepsis, hyperammon emia. pt and his agree with plan.EMS called to transport pt to the ER. Plan, Medication Management & Follow-up recommenda tions:I was unable to get through to [facility] ER report was given on scene to EMS. Cirrhosis of liver 007 K74.60 Status of condition: Chronic. Testing/Re sults: n/a Discussion : concern for hyperammon emia. discussed further evaluation in the ER with pt and his . they agree with plan.EMS was called to transport pt to the ER. Plan, Medication Management & Follow-up recommenda tions:repo rt given on scene to EMS as I could not get through to [facility] ER. Health Concerns Section Related Observation LastModified by Organization Detai ls LastModified Time None Recorded Concern Status LastModified by Organization Details LastModified Time None Recorded Advance Directives Directive None Recorded Payers Insurance Date Sequence Insurance Name Policy Number Policy Rosas Covered Member ID Rosas Member ID Guarantor Name 07/28/2023 1 [facility] [employer] [facility] (MEDICAID HMO) [id number] Mauricio Mario [id number] Mauricio Mario 07/20/2023 1 *SELF PAY* Mauricio Mario [id number] Mauricio Mario Notes Date Note Type Note Provider Name and Address Organization Details Recorded Time 07/20/2023 text/html 48 y/o male new to and provider with hx of Asthma, pulmonary fibrosis, GERD, back pain, jaundice, CKD stage 3, Cirrhosis, peripheral neuropathy, myofascial muscle pain. pt is being seen with his present. pt reports 2 days ago waking up with mid/ upper back pain- no injury or fall. pain is constant. he has taken his rx hydromorphone which has helped some. has noticed he is weak and today has been unable to ambulate on his own. she also reports that as of late last night pt has seemed more confused, repeating himself. pt denies any cp, sob. states he has had mild cough and has coughed up small amount of sputum. he denies any abdominal pain, nausea, vomiting, diarrhea. last BM was yesterday per pt. also reports she has noticed new twitches every so often. pt denies MACEDO, dizziness, vision changes. reports 1-2 months ago pt was hospitalized with high amonia levels and states he did present similarly. EDELMIRA Ruiz [facility] [address], [place], [address], [place] [facility] 07/20/2023 10:56:59
--- OUTSIDE RECORDS SUMMARY | 2025-05-08 12:54 | XMS_ITS | Clinical Summary ---
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 Name Role Phone Unavailable Primary Care Provider Unavailabl e Social History Tobacco Use Types Packs/Day Years Used Date Smoking Tobacco: Never Assessed Sex and Gender Information Value Date Recorded Sex Assigned at Not on file Legal Sex Male 2:35 AM EST Gender Identity Not on file Sexual Orientation Not on file Plan of Treatment Health Maintenance Due Date Last Done Comments DTaP,Tdap,and Td Vaccines (1 - Tdap) 1996 Hepatitis B Vaccines (1 of 3 - 19+ 3-dose series) 1996 Cholesterol Screening (Lipid Panel) 09/28/2022 Colorectal Cancer Screening: Colonoscopy 09/28/2022 Depression Screening 09/28/2022 HIV Screening 09/28/2022 Hepatitis C Screening 09/28/2022 Social Influencers of Health Screening 09/28/2022 COVID-19 Vaccine (2023-2 5 season) 2024 Influenza Vaccine (#1) 2025 HIB Vaccines Aged Out No longer eligi ble based on patient's age to complete this topic HPV Vaccines Aged Out No longer eligi ble based on patient's age to complete this topic Hepatitis A Vaccines Aged Out No long er eligible based on patient's age to complete this topic IPV Vaccines Aged Out No longer eligi ble based on patient's age to complete this topic MMR Vaccines Aged Out No longer eligi ble based on patient's age to complete this topic Meningococcal ACWY Vaccine Aged Out N o longer eligible based on patient's age to complete this topic Meningococcal B Vaccine Aged Out No l onger eligible based on patient's age to complete this topic Pneumococcal Vaccine: Pediat rics (0 to 5 Years) and At-Risk Patients (6 to 49 Years) Aged Out No longer eligible b ased on patient's age to complete this topic RSV Immunization Patients Un vika 20 months Aged Out No longer eligible b ased on patient's age to complete this topic Varicella Vaccines Aged Out No longer eligible based on patient's age to complete this topic Advance Directives Documents on File Type Date Recorded 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
--- OUTSIDE RECORDS SUMMARY | 2025-05-08 12:55 | XMS_ITS | Patient Health Record ---
Author Organization [facility] Address [address] [place] [phone] Care Team Providers Care Supervisor Type Photography Name Role Phone Ever Arcos M.D. Primary Care Provider Sp Chapman [phone] Allergies Allergen (clinical drug ingredient) Drug/Non Drug Allergy documented on EMR Reaction Allergy Type Onset Date Status quetiapine SEROquel Unknown Drug Allergy Active meropenem Meropenem Unknown Drug Allergy Active amoxicillin Amoxicillin Unknown Drug Allergy Act wesley Results Component Value Reference Range Notes Complete Blood Count Auto Di ff Reviewed date:07/22/2024 01:37:18 PM Interpretation: Performing Lab:[facility], [address] [place] [phone] Notes/Report: White Blood Count 12.2 4.8-10.8 X10*3/uL Red Blood Count 4.93 4.60-5.80 X10*6/uL Hemoglobin 14.8 14.0-18.0 g/dl Hematocrit 45.5 42.0-52.0 % Mean Corpuscular Volume 92.3 80.0-98.0 fL Mean Corpuscular Hemoglobin 30.0 27.0-33.0 pg Mean Corpuscular HGB Conc 32.5 31.0-36.0 g/dl Red Cell Distribution Width 18.1 11.0-16.0 % Platelet Count 155 160-400 X10*3/uL Mean Platelet Volume 10.9 9.4-12.4 fL Neutrophils Percent Auto 77.0 45-73 % Imm Gran Pct Auto 0.7 0.0-0.4 % Lymphocytes Percent Auto 12.5 20-40 % Monocytes Percent Auto 7.8 2-11 % Eosinophils Percent Auto 1.3 0-4 % Basophils Percent Auto 0.7 0-2 % NRBC Pct Auto 0.0 0.0-0.2 /100WBC Neutrophils Absolute Auto 9.4 2.0-8.3 x10*3/u L Imm Gran Abs Auto 0.08 0.00-0.03 X10*3/uL Lymphocytes Absolute Auto 1.5 1.2-4.9 X10*3/u L Monocytes Absolute Auto 1.0 0.1-1.2 X10*3/uL Eosinophils Absolute Auto 0.2 0.0-0.4 X10*3/u L Basophils Absolute Auto 0.1 0.0-0.2 X10*3/uL NRBC Abs Auto 0.000 0.0-0.012 X10*3/uL Prothrombin Time INR Reviewed date:07/22/2024 01:37:27 PM Interpretation: Performing Lab:[address] [phone] Notes/Report: Prothrombin Time 13.3 10.9-12.4 SEC INTERNATIONAL NORM RATIO 1.1 0.9-1.1 INTERNATIONAL NORMALIZED RATIO (INR) REFERENCE RANGES Reference Range For patients not on anticoagulant therapy: 0.9 - 1.1 INR ranges for oral anticoagulant therapy: For prevention and treatment of venous thrombosis and pulmonary embolism: 2.0 - 3.0 For acute myocardial infarction with aspirin therapy: 2.0 - 3.0 For acute myocardial infarction without aspirin therapy: 3.0 - 4.0 For patients with mechanical prosthetic heart valves: 2.5 - 3.5 Liver Panel Reviewed date:07/28/2024 01:46:25 PM Interpretation: Performing Lab:[address] [phone] Notes/Report: Bilirubin Total 2.0 0.0-1.0 mg/dL Bilirubin Direct 1.4 0.0-0.5 mg/dL Aspartate Amino Transferase 68 5-37 U/L Alanine Aminotransferase 50 0-40 U/L Total Protein 6.8 6.5-8.0 g/dL Albumin Level 3.2 3.5-5.0 g/dL Alkaline Phosphatase 317 39-117 U/L Basic Metabolic Panel Reviewed date:07/22/2024 01:38:09 PM Interpretation: Performing Lab:[facility], [address] [place] [phone] Notes/Report: Sodium 144 135-145 mmol/L Potassium 4.2 3.3-5.1 mmol/L Chloride 111 96-108 mmol/L Carbon Dioxide 27 22-29 mmol/L Anion Gap 10 12-20 Blood Urea Nitrogen 19 9-16 mg/dL Creatinine 1.26 0.5-1.4 mg/dL Estimated Glomerular Filt Rate > 60 NOTE: For -Finnish individuals, multiply the result by 1.210. Chronic Kidney Disease: Estimated GFR < 60 mL/min/1.73m2 Severe Kidney Disease: Estimated GFR < 15 mL/min/1.73m2 Glucose Random 97 60-115 mg/dL Calcium 9.6 8.4-10.2 mg/dL US abdomen complete Reviewed date:07/29/2024 05:34:29 PM Interpretation: Performing Lab: Notes/Report: [address] [address] Ultrasound Report Signed with Addenda Patient: Nicola Mario MR#: [id number] : 1975 Acct:[id number] Age/Sex: 49 / M ADM Date: 07/22/24 Loc: HO.US Attending Dr: Sp Mitchell MD Ordering Physician: Sp Mitchell MD Date of Service: 07/22/24 Procedure(s): US abdomen complete Accession Number(s): [id number] cc: Chet Arcos MD; Sp Mitchell MD ADDENDUM ADDENDUM #1 Addendum: In the findings section, the gallbladder incorrectly states that the gallbladder is normal. The gallbladder is absent but a cystic structure exists in the fossa as described. End addendum Electronically signed by: Rm Mcmillan DO 07/29/2024 12:15 PM EDT Addendum Dictated By: Rm Mcmillan Addendum Signed By: <Electronically signed by Rm Mcmillan in OV> 07/29/24 1215 Addendum Cosigned By: DD/ TD/TT: 07/22/24 EXAMINATION: US ABDOMEN COMPLETE WITH ATTENTION TO THE LIVER CLINICAL INFORMATION: Cirrhosis of the liver; concern for portal vein thrombosis COMPARISON: MRI abdomen March 31, 2023 TECHNIQUE: Ultrasound of the abdomen was performed. In light of the patient's liver disease, color and spectral Doppler analysis was also employed. FINDINGS: LIVER: The liver is enlarged in size, nodular contour and heterogeneous in echotexture, measuring 24 cm in the midclavicular line. Multiple intrahepatic lesions are identified, the largest measuring 7.0 x 4.3 cm. GALLBLADDER: The gallbladder is normal in appearance without gallstones, mural thickening, pericholecystic fluid or sonographic Griffin's sign. BILIARY TREE: No intrahepatic or extrahepatic biliary ductal dilatation is identified. The CBD measures 0.7 cm in diameter. Incidentally noted small anechoic collection near the gallbladder fossa measuring 4.7 x 2.6 x 3.7 cm. PORTAL VEINS: Patency: The main, right and left portal veins are patent with normal direction of flow. HEPATIC ARTERY: Patency: The proper, right and left hepatic arteries are patent. Peak systolic velocity of proper hepatic artery: 183 cm/sec. HEPATIC VEINS: Patent centrally. OTHER: Abdominal aorta: Unremarkable. IVC: Unremarkable. Splenic vein: Patent with normal direction of flow. Portosplenic confluence: Patent with normal direction of flow. PANCREAS: Pancreas not well visualized. SPLEEN: Enlarged measuring 17 cm. RIGHT KIDNEY: Right kidney measures 14.4 cm. Cortical atrophy There is no hydronephrosis, contour deforming mass or shadowing calculus. LEFT KIDNEY: Left kidney measures 14.4 cm. Cortical atrophy. There is no hydronephrosis, contour deforming mass or shadowing calculus. A large varix is seen surrounding the left kidney. ASCITES: None. US/US abdomen complete IMPRESSION: 1. Hepatosplenomegaly, cirrhotic morphology and heterogeneous echotexture. Multiple intrahepatic masses are identified, the largest measuring 7 cm. Recommend further evaluation with MRI abdomen with contrast. 2. Small cystic structure near the gallbladder fossa measuring 4.7 x 2.6 x 3.7 cm. 3. No evidence of portal vein thrombosis. 4. Left retroperitoneal an splenic hilum varices. Electronically signed by: Rm Mcmillan DO 07/27/2024 10:03 AM EDT RP Dictated By: Rm Mcmillan Signed By: <Electronically signed by Rm Mcmillan in OV> 07/27/24 1003 DD/ 4 TD/TT: 07/22/24841 Senior Project Coordinator: US duplex arterial venous co mp Reviewed date:07/29/2024 05:34:47 PM Interpretation: Performing Lab: Notes/Report: [address] [address] Ultrasound Report Signed with Addenda Patient: Nicola Mario MR#: [id number] : 1975 Acct:[id number] Age/Sex: 49 / M ADM Date: 07/22/24 Loc: HO.US Attending Dr: Sp Mitchell MD Ordering Physician: Sp Mitchell MD Date of Service: 07/22/24 Procedure(s): US duplex arterial venous comp Accession Number(s): [id number] cc: Chet Arcos MD; Sp Mitchell MD ADDENDUM ADDENDUM #1 Addendum: In the findings section, the gallbladder incorrectly states that the gallbladder is normal. The gallbladder is absent but a cystic structure exists in the fossa as described. End addendum Electronically signed by: Rm Mcmillan DO 07/29/2024 12:15 PM EDT Addendum Dictated By: Rm Mcmillan Addendum Signed By: <Electronically signed by Rm Mcmillan in OV> 07/29/24 1215 Addendum Cosigned By: DD/ TD/TT: 07/22/24 EXAMINATION: US ABDOMEN COMPLETE WITH ATTENTION TO THE LIVER CLINICAL INFORMATION: Cirrhosis of the liver; concern for portal vein thrombosis COMPARISON: MRI abdomen March 31, 2023 TECHNIQUE: Ultrasound of the abdomen was performed. In light of the patient's liver disease, color and spectral Doppler analysis was also employed. FINDINGS: LIVER: The liver is enlarged in size, nodular contour and heterogeneous in echotexture, measuring 24 cm in the midclavicular line. Multiple intrahepatic lesions are identified, the largest measuring 7.0 x 4.3 cm. GALLBLADDER: The gallbladder is normal in appearance without gallstones, mural thickening, pericholecystic fluid or sonographic Griffin's sign. BILIARY TREE: No intrahepatic or extrahepatic biliary ductal dilatation is identified. The CBD measures 0.7 cm in diameter. Incidentally noted small anechoic collection near the gallbladder fossa measuring 4.7 x 2.6 x 3.7 cm. PORTAL VEINS: Patency: The main, right and left portal veins are patent with normal direction of flow. HEPATIC ARTERY: Patency: The proper, right and left hepatic arteries are patent. Peak systolic velocity of proper hepatic artery: 183 cm/sec. HEPATIC VEINS: Patent centrally. OTHER: Abdominal aorta: Unremarkable. IVC: Unremarkable. Splenic vein: Patent with normal direction of flow. Portosplenic confluence: Patent with normal direction of flow. PANCREAS: Pancreas not well visualized. SPLEEN: Enlarged measuring 17 cm. RIGHT KIDNEY: Right kidney measures 14.4 cm. Cortical atrophy There is no hydronephrosis, contour deforming mass or shadowing calculus. LEFT KIDNEY: Left kidney measures 14.4 cm. Cortical atrophy. There is no hydronephrosis, contour deforming mass or shadowing calculus. A large varix is seen surrounding the left kidney. ASCITES: None. US/US duplex arterial venous comp IMPRESSION: 1. Hepatosplenomegaly, cirrhotic morphology and heterogeneous echotexture. Multiple intrahepatic masses are identified, the largest measuring 7 cm. Recommend further evaluation with MRI abdomen with contrast. 2. Small cystic structure near the gallbladder fossa measuring 4.7 x 2.6 x 3.7 cm. 3. No evidence of portal vein thrombosis. 4. Left retroperitoneal an splenic hilum varices. Electronically signed by: Rm Mcmillan DO 07/27/2024 10:03 AM EDT Dictated By: Rm Mcmillan Signed By: <Electronically signed by Rm Mcmillan in OV> 07/27/24 1003 DD/ 0805 TD/TT: 07/22/24 0842 Senior Project Coordinator: Reason For Referral No Information Medications Medication SIG (Take, Route, Frequency, Duration) Notes Start Date End Date Status Pantoprazole Sodium 40 MG 1 tablet Orall y Once a day Active Hydrocortisone 10 MG 1 Orally 10 mg in a m and 5 mg in pm as of the 01/2024 OV Active Symbicort 160-4.5 MCG/ACT 1 puff as need ed Inhalation every 4 hrs Active Naltrexone HCl 50 MG 1/2 tablet to 1 tab let Orally Once a day for pruritus(itching) Not-Taking GaviLAX 17 GM/SCOOP 1 scoop mixed with 8 ounces of fluid Orally Once or twice a day for constipation for 30 days 04/05/2025 Active Xifaxan 200 MG 2 tablets Orally Thr ee times a day Active Diflucan 100 MG 2 tablets on Day #1, and then 1 tablet daily Orally Once a day for 21 days 07/27/2023 Not-Taking Flonase Allergy Relief 50 MCG/ACT 1 spray in each nostril Nasally Twice a day Active Pregabalin 25 MG TAKE 1 CAPSULE BY MO UTH 3 TIMES A DAY Orally once a week Not-Taking Furosemide 40 MG 1 tablet Orally Once a day for 30 days Not-Taking Spironolactone 25 MG 1 tablet Orally Twi ce a day for 90 days Active Ciprofloxacin HCl 250 MG TAKE 1 TABLET B Y MOUTH ONCE A DAY FOR PREVENTION OF INFECTION IN ASCITES 30 DAYS for 30 Active [place] 3 Active Fish Oil Adult Gummies Active Melatonin 5 MG 1 tablet at bedtime as needed Orally as needed Active Spiriva HandiHaler 18 MCG 1 capsule by i nhaling the contents of the capsule using the HandiHaler device Inhalation Once a day 08/17/2024 Active Ursodiol 500 MG TAKE 1 TABLET BY JANIE TH THREE TIMES A DAY 30 DAY(S) for 90 Active D3-1000 25 MCG (1000 UT) TAKE 1 CAPSULE BY MOUTH EVERY DAY Oral for 90 Active Daily-Nathaniel Multivitamin - TAKE 1 TABLET BY MOUTH EVERY DAY FOR 30 DAYS Oral for 90 Active Mirtazapine 15 MG TAKE 1 TABLET BY JANIE TH EVERYDAY AT BEDTIME Oral for 30 Active Gabapentin 600 MG Oral for 30 Active Montelukast Sodium 10 MG TAKE 1 TABLET B Y MOUTH EVERYDAY AT BEDTIME Oral for 30 Active Baclofen 10 MG TAKE 1 TABLET BY JANIE TH 3 TIMES A DAY FOR 7 DAYS Oral for 7 Active rifAXIMin 550 MG 1 tablet Orally Twic e a day for 30 days 04/05/2025 Active Lactulose 10 GM/15ML TAKE 30 ML. Orally Three times a day for constipatoion for 90 days Active Furosemide 20 MG TAKE 3 TABLETS BY [facility] EVERY DAY (DOSE INCREASED FROM 40MG TO 60 MG) for 90 Active Dicyclomine HCl 10 MG 1 or 2 Orally Ever y 6 hours if needed for abdominal cramps/discomfort for 30 days Active Immunizations Vaccine Route Administration Date Status Comme nts Influenza Unknown 08/06/2021 Administered Influenza Unknown 08/17/2024 Refused Social History Tobacco Use: Social History Observation Description Date Details (start date - stop date) Never Smoker NA - NA Tobacco Use/Smoking Question Answer Notes Patient is a nonsmoker Alcohol Screen Question Answer Notes Did you have a drink containing alcohol in the p ast year? No Points 0 Interpretation Negative Section Notes: Nonsmoker; no sig. EtOH Nonsmoker; no sig. EtOH Nonsmoker; no sig. EtOH Nonsmoker; no sig. EtOH Nonsmoker; no sig. EtOH Nonsmoker; no sig. EtOH Nonsmoker; no sig. EtOH Nonsmoker; no sig. EtOH Nonsmoker; no sig. 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) Active confirmed Problem 95834598 Unspecified cirrhosis of liver (K74.60) Active confirmed Problem Portal hypertension (02052492) Portal hypertension (K76.6) Active confirmed Problem 535193363 Other ascites (R18.8) Active confirmed Problem Elevated liver enzymes level (544170319) Elevated liver function tests (R79.89) Active confirmed Problem 869557293 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) Active confirmed Problem 68437898 Constipation, unspecified constipation type (K59.00) Active confirmed Problem Cirrhotic (682551419) Cirrhosis (K74.60) Active confirmed Problem 07462645 Jaundice (R17) Active confirmed Problem 191305083 Abnormal MRI, liver (R93.2) Active confirmed Problem Cirrhosis - non-alcoholic (127293390) Cirrhosis of liver with ascites (K74.60) Active confirmed Problem 306803157 Pruritus (L29.9) Active confirmed Problem Elevated liver enzymes level (815304855) Elevated liver function tests (R94.5) Active confirmed Problem 9639068 Cholestasis, 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) Active confirmed Problem Hepatic encephalopathy (69208776) Hepatic encephalopathy (K76.82) Active confirmed Vital Signs Temperature 97.3 degrees Fahrenheit 03/15/2025 Blood pressure diastolic 01 mm Hg 03/15/2025 Height 72 in 03/15/2025 Blood pressure systolic 001 mm Hg 03/15/2025 Weight 235.2 lbs 03/15/2025 BMI 31.9 kg/m2 03/15/2025 Encounters Encounter Location Date Provider Diagnosis [facility] [address] [place] [phone] 08/17/2024 Sp Mitchell Secondary biliary cirrhosis K74.4 ; Elevated liver function tests R79.89 and Abnormal MRI, liver R93.2 [facility] [address] [place] [phone] 03/15/2025 Sp Mitchell Other ascites R18.8 ; Unspecified cirrhosis of liver K74.60 ; Cholestasis, intrahepatic K76.89 ; Spontaneous bacterial peritonitis K65.2 ; Constipation K59.00 and Hepatic encephalopathy K76.82 [facility] [address] [place] [phone] 05/08/2025 Sp Mitchell [facility] [address] [place] [phone] 07/06/2024 Sp Mitchell [facility] [address] [place] [phone] 07/14/2024 Sp Mitchell Cirrhosis of liver w ith ascites K74.60 [facility] [address] [place] [phone] 08/02/2024 Sp Mitchell [facility] [address] [place] [phone] 11/01/2024 Sp Mitchell [facility] [address] [place] [phone] 11/21/2024 Sp Mitchell Elevated liver funct ion tests R94.5 [facility] [address] [place] [phone] 12/13/2024 Sp Mitchell [facility] [address] [place] [phone] 12/20/2024 Sp Mitchell [facility] [address] [place] [phone] 03/03/2025 Sp Mitchell [facility] [address] [place] [phone] 03/16/2025 Sp Mitchell [facility] [address] [place] [address] 04/03/2025 Sp Mitchell Assessments Encounter Date Diagnosis (ICD Code) Assessment Notes Treatment Notes Treatment Clinical Notes Section Notes 08/17/2024 Secondary biliary cirrhosis (ICD-10 - K74.4) Continue your same medical regimen and follow up at [facility]. Overall, Nicola appears well and his cirrhosis remains stable on his current medical regimen without any signs of decompensation at the present time. He is not showing any signs of increasing ascites, recurrent spontaneous bacterial peritonitis, edema, hepatic encephalopathy, jaundice, nor GI bleeding. As such, he'll continue his current medical regimen without any changes at this time. He'll continue his followup at [facility] liver transplant clinic as well. He will be due for followup imaging of his liver with a probable MRI in the spring. If that is not set up for him by the [facility] liver clinic at his next appointment there I will do that when I see him in followup in my office in February. I advised Nicola and his to contact me prior to the next appointment if there are any issues or questions that arise that I can be of assistance with. They were both comfortable with this plan. Thank you again for allowing me to participate in Nicola's care. I shall continue to keep you advised of his progress. 08/17/2024 Elevated liver function tests (ICD-10 - R79.89) Overall, Nicola appears well and his cirrhosis remains stable on his current medical regimen without any signs of decompensation at the present time. He is not showing any signs of increasing ascites, recurrent spontaneous bacterial peritonitis, edema, hepatic encephalopathy, jaundice, nor GI bleeding. As such, he'll continue his current medical regimen without any changes at this time. He'll continue his followup at [facility] liver [place] clinic as well. He will be due for followup imaging of his liver with a probable MRI in the spring. If that is not set up for him by the [facility] liver clinic at his next appointment there I will do that when I see him in followup in my office in February. I advised Nicola and his to contact me prior to the next appointment if there are any issues or questions that arise that I can be of assistance with. They were both comfortable with this plan. Thank you again for allowing me to participate in Nicola's care. I shall continue to keep you advised of his progress. 03/15/2025 Unspecified cirrhosis of liver (ICD-10 - K74.60) Overall, Nicola appears stable in regard to the underlying significant liver disease. He does not appear to be having any issues with jaundice and pruritus as he had been in the past. He does not appear to be developing significant ascites or edema on his current regimen. He has had no recurrence of the spontaneous bacterial peritonitis. His mental status presently seems good and there is no evidence of any definitive encephalopathy at this time. There has been no evidence of any GI bleeding. In regard to the recent hospitalization it seems the main problem at that time seems to have been the elevated glucose levels. The minimally elevated ammonia level may not have been clinically significant but I did advise him to certainly continue Xifaxan. He can continue lactulose as well given his chronic constipation. In regard to the chronic constipation I did advise him to add some fiber supplement such as Metamucil, as well as MiraLAX as needed so as to avoid constipation and possibly cut down on the lactulose as that may be causing some increased gas and blood sugars. I think using the Xifaxan will help decrease any risk of encephalopathy at this time. I have recommended a follow-up MRI of his liver given that his last study was 1 year ago and he does have the multiple liver lesions, albeit probably benign based on the previous biopsy. However, the [facility] liver transplant clinic would like to have a yearly MRI for close follow-up of these lesions given the underlying cirrhosis and his young age to be sure nothing is changing. In addition to the MRI I shall also schedule him for lab work including an alpha-fetoprotein level, LFTs, CBC with platelet count, PT with INR, ammonia level,and chemistries and renal function. I did advise him to continue his close follow-up with the [facility] liver transplant clinic as well. I have given Nicola a follow-up appointment to see me in 6 months but did advise him and his to certainly call prior to that if he has any problems or questions I can be of assistance with. They were both comfortable with this plan. Thank you again for allowing me to participate in Nicola's care. I shall continue to keep you advised of his progress. 03/15/2025 Other ascites (ICD-10 - R18.8) Continue the Furosemide and the Spironolactone for the ascites Overall, Nicola appears stable in regard to the underlying significant liver disease. He does not appear to be having any issues with jaundice and pruritus as he had been in the past. He does not appear to be developing significant ascites or edema on his current regimen. He has had no recurrence of the spontaneous bacterial peritonitis. His mental status presently seems good and there is no evidence of any definitive encephalopathy at this time. There has been no evidence of any GI bleeding. In regard to the recent hospitalization it seems the main problem at that time seems to have been the elevated glucose levels. The minimally elevated ammonia level may not have been clinically significant but I did advise him to certainly continue Xifaxan. He can continue lactulose as well given his chronic constipation. In regard to the chronic constipation I did advise him to add some fiber supplement such as Metamucil, as well as MiraLAX as needed so as to avoid constipation and possibly cut down on the lactulose as that may be causing some increased gas and blood sugars. I think using the Xifaxan will help decrease any risk of encephalopathy at this time. I have recommended a follow-up MRI of his liver given that his last study was 1 year ago and he does have the multiple liver lesions, albeit probably benign based on the previous biopsy. However, the [facility] [place] transplant clinic would like to have a yearly MRI for close follow-up of these lesions given the underlying cirrhosis and his young age to be sure nothing is changing. In addition to the MRI I shall also schedule him for lab work including an alpha-fetoprotein level, LFTs, CBC with platelet count, PT with INR, ammonia level,and chemistries and renal function. I did advise him to continue his close follow-up with the [facility] liver transplant clinic as well. I have given Nicola a follow-up appointment to see me in 6 months but did advise him and his to certainly call prior to that if he has any problems or questions I can be of assistance with. They were both comfortable with this plan. Thank you again for allowing me to participate in Nicola's care. I shall continue to keep you advised of his progress. 07/14/2024 Cirrhosis of liver with ascites (ICD-10 - K74.60) 11/21/2024 Elevated liver function tests (ICD-10 - R94.5) 08/17/2024 Abnormal MRI, liver (ICD-10 - R93.2) Overall, Nicola appears well and his cirrhosis remains stable on his current medical regimen without any signs of decompensation at the present time. He is not showing any signs of increasing ascites, recurrent spontaneous bacterial peritonitis, edema, hepatic encephalopathy, jaundice, nor GI bleeding. As such, he'll continue his current medical regimen without any changes at this time. He'll continue his followup at [facility] as well. He will be due for followup imaging of his liver with a probable MRI in the spring. If that is not set up for him by the [facility] liver clinic at his next appointment there I will do that when I see him in followup in my office in February. I advised Nicola and his to contact me prior to the next appointment if there are any issues or questions that arise that I can be of assistance with. They were both comfortable with this plan. Thank you again for allowing me to participate in Nicola's care. I shall continue to keep you advised of his progress. 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 He does not appear to be having any issues with jaundice and pruritus as he had been in the past. He does not appear to be developing significant ascites or edema on his current regimen. He has had no recurrence of the spontaneous bacterial peritonitis. His mental status presently seems good and there is no evidence of any definitive encephalopathy at this time. There has been no evidence of any GI bleeding. In regard to the recent hospitalization it seems the main problem at that time seems to have been the elevated glucose levels. The minimally elevated ammonia level may not have been clinically significant but I did advise him to certainly continue Xifaxan. He can continue lactulose as well given his chronic constipation. In regard to the chronic constipation I did advise him to add some fiber supplement such as Metamucil, as well as MiraLAX as needed so as to avoid constipation and possibly cut down on the lactulose as that may be causing some increased gas and blood sugars. I think using the Xifaxan will help decrease any risk of encephalopathy at this time. I have recommended a follow-up MRI of his liver given that his last study was 1 year ago and he does have the multiple liver lesions, albeit probably benign based on the previous biopsy. However, the [facility] transplant clinic would like to have a yearly MRI for close follow-up of these lesions given the underlying cirrhosis and his young age to be sure nothing is changing. In addition to the MRI I shall also schedule him for lab work including an alpha-fetoprotein level, LFTs, CBC with platelet count, PT with INR, ammonia level,and chemistries and renal function. I did advise him to continue his close follow-up with the [facility] transplant clinic as well. I have given Nicola a follow-up appointment to see me in 6 months but did advise him and his to certainly call prior to that if he has any problems or questions I can be of assistance with. They were both comfortable with this plan. Thank you again for allowing me to participate in Nicola's care. I shall continue to keep you advised of his progress. 03/15/2025 Spontaneous bacterial peritonitis (ICD-10 - K65.2) Continue the Cipro Overall, Nicola appears stable in regard to the underlying significant liver disease. He does not appear to be having any issues with jaundice and pruritus as he had been in the past. He does not appear to be developing significant ascites or edema on his current regimen. He has had no recurrence of the spontaneous bacterial peritonitis. His mental status presently seems good and there is no evidence of any definitive encephalopathy at this time. There has been no evidence of any GI bleeding. In regard to the recent hospitalization it seems the main problem at that time seems to have been the elevated glucose levels. The minimally elevated ammonia level may not have been clinically significant but I did advise him to certainly continue Xifaxan. He can continue lactulose as well given his chronic constipation. In regard to the chronic constipation I did advise him to add some fiber supplement such as Metamucil, as well as MiraLAX as needed so as to avoid constipation and possibly cut down on the lactulose as that may be causing some increased gas and blood sugars. I think using the Xifaxan will help decrease any risk of encephalopathy at this time. I have recommended a follow-up MRI of his liver given that his last study was 1 year ago and he does have the multiple liver lesions, albeit probably benign based on the previous biopsy. However, the [facility] transplant clinic would like to have a yearly MRI for close follow-up of these lesions given the underlying cirrhosis and his young age to be sure nothing is changing. In addition to the MRI I shall also schedule him for lab work including an alpha-fetoprotein level, LFTs, CBC with platelet count, PT with INR, ammonia level,and chemistries and renal function. I did advise him to continue his close follow-up with the [facility] transplant clinic as well. I have given Nicola a follow-up appointment to see me in 6 months but did advise him and his to certainly call prior to that if he has any problems or questions I can be of assistance with. They were both comfortable with this plan. Thank you again for allowing me to participate in Nicola's care. I shall continue to keep you advised of his progress. 03/15/2025 Constipation (ICD-10 - K59.00) Start 2 Metamucil fiber pills once or twice a day with a lot of water to help with the BM's Use Lactulose 2 -4 times a day and adjust as needed for the constipation Use MIralax if needed as well Overall, Nicola appears stable in regard to the underlying significant liver disease. He does not appear to be having any issues with jaundice and pruritus as he had been in the past. He does not appear to be developing significant ascites or edema on his current regimen. He has had no recurrence of the spontaneous bacterial peritonitis. His mental status presently seems good and there is no evidence of any definitive encephalopathy at this time. There has been no evidence of any GI bleeding. In regard to the recent hospitalization it seems the main problem at that time seems to have been the elevated glucose levels. The minimally elevated ammonia level may not have been clinically significant but I did advise him to certainly continue Xifaxan. He can continue lactulose as well given his chronic constipation. In regard to the chronic constipation I did advise him to add some fiber supplement such as Metamucil, as well as MiraLAX as needed so as to avoid constipation and possibly cut down on the lactulose as that may be causing some increased gas and blood sugars. I think using the Xifaxan will help decrease any risk of encephalopathy at this time. I have recommended a follow-up MRI of his liver given that his last study was 1 year ago and he does have the multiple liver lesions, albeit probably benign based on the previous biopsy. However, the [facility] transplant clinic would like to have a yearly MRI for close follow-up of these lesions given the underlying cirrhosis and his young age to be sure nothing is changing. In addition to the MRI I shall also schedule him for lab work including an alpha-fetoprotein level, LFTs, CBC with platelet count, PT with INR, ammonia level,and chemistries and renal function. I did advise him to continue his close follow-up with the [facility] transplant clinic as well. I have given Nicola a follow-up appointment to see me in 6 months but did advise him and his to certainly call prior to that if he has any problems or questions I can be of assistance with. They were both comfortable with this plan. Thank you again for allowing me to participate in Nicola's care. I shall continue to keep you advised of his progress. 03/15/2025 Hepatic encephalopathy (ICD-10 - K76.82) Continue the Xifaxan twice a day for the ammonia levels Overall, Nicola appears stable in regard to the underlying significant liver disease. He does not appear to be having any issues with jaundice and pruritus as he had been in the past. He does not appear to be developing significant ascites or edema on his current regimen. He has had no recurrence of the spontaneous bacterial peritonitis. His mental status presently seems good and there is no evidence of any definitive encephalopathy at this time. There has been no evidence of any GI bleeding. In regard to the recent hospitalization it seems the main problem at that time seems to have been the elevated glucose levels. The minimally elevated ammonia level may not have been clinically significant but I did advise him to certainly continue Xifaxan. He can continue lactulose as well given his chronic constipation. In regard to the chronic constipation I did advise him to add some fiber supplement such as Metamucil, as well as MiraLAX as needed so as to avoid constipation and possibly cut down on the lactulose as that may be causing some increased gas and blood sugars. I think using the Xifaxan will help decrease any risk of encephalopathy at this time. I have recommended a follow-up MRI of his liver given that his last study was 1 year ago and he does have the multiple liver lesions, albeit probably benign based on the previous biopsy. However, the [facility] transplant clinic would like to have a yearly MRI for close follow-up of these lesions given the underlying cirrhosis and his young age to be sure nothing is changing. In addition to the MRI I shall also schedule him for lab work including an alpha-fetoprotein level, LFTs, CBC with platelet count, PT with INR, ammonia level,and chemistries and renal function. I did advise him to continue his close follow-up with the [facility] transplant clinic as well. I have given Nicola a follow-up appointment to see me in 6 months but did advise him and his to certainly call prior to that if he has any problems or questions I can be of assistance with. They were both comfortable with this plan. Thank you again for allowing me to participate in Nicola's care. I shall continue to keep you advised of his progress. Plan Of Treatment Pending Test Test Name Order Date CHEM 7 PROFILE 12/04/2021 CHEM 7 PROFILE 02/09/2024 CHEM 7 PROFILE 11/05/2023 CHEM 7 PROFILE 03/31/2023 CHEM 7 PROFILE 10/20/2023 CHEM 7 PROFILE 03/29/2024 CHEM 7 PROFILE 05/19/2023 CHEM 7 PROFILE 03/04/2023 CHEM 7 PROFILE 03/16/2023 CHEM 7 PROFILE 10/10/2022 CHEM 7 PROFILE 11/29/2023 CHEM 7 PROFILE 07/14/2024 CHEM 7 PROFILE 08/07/2023 CHEM 7 PROFILE 09/08/2023 BUN 03/15/2025 LIVER PROFILE 07/14/2024 LIVER PROFILE 08/07/2023 LIVER PROFILE 04/18/2022 LIVER PROFILE 09/08/2023 LIVER PROFILE 12/04/2021 LIVER PROFILE 11/09/2022 LIVER PROFILE 02/09/2024 LIVER PROFILE 03/10/2022 LIVER PROFILE 11/05/2023 LIVER PROFILE 03/31/2023 LIVER PROFILE 10/20/2023 LIVER PROFILE 03/29/2024 LIVER PROFILE 05/19/2023 LIVER PROFILE 03/04/2023 LIVER PROFILE 09/23/2022 LIVER PROFILE 03/16/2023 LIVER PROFILE 11/21/2024 LIVER PROFILE 10/10/2022 LIVER PROFILE 11/29/2023 LIVER PROFILE 01/14/2022 LIVER PROFILE 03/15/2025 IRON + IBC (FE) 12/04/2021 CRP 12/04/2021 CEA 11/09/2022 CBC w DIFF 09/23/2022 CBC w DIFF 03/16/2023 CBC w DIFF 12/04/2021 CBC w DIFF 10/10/2022 CBC w DIFF 03/15/2025 CBC w DIFF 07/14/2024 CBC w DIFF 08/07/2023 CBC w DIFF 04/18/2022 CBC w DIFF 09/08/2023 CBC w DIFF 02/09/2024 CBC w DIFF 12/04/2021 CBC w DIFF 03/31/2023 CBC w DIFF 10/20/2023 CBC w DIFF 05/19/2023 CBC w DIFF 03/04/2023 SED RATE (ESR) 12/04/2021 PROTHROMBIN TIME (PT, INR) 12/04/2021 PROTHROMBIN TIME (PT, INR) 04/18/2022 PROTHROMBIN TIME (PT, INR) 12/04/2021 PARTIAL THROMBOPLASTIN TIME (PTT) 2021 HEPATITIS A,B,C PROFILE 12/04/2021 HEPATITIS B SURFACE ANTIBODY 10/10/2022 NASYN-2-HVHMBIPSNOM (A1A) 12/04/2021 ALPHA-FETOPROTEIN,TUMOR MARKER 5 ALPHA-FETOPROTEIN,TUMOR MARKER 2 ALPHA-FETOPROTEIN,TUMOR MARKER 4 ALPHA-FETOPROTEIN,TUMOR MARKER 3 CA 19-9 11/09/2022 MRI ABD W&WO CONTRAST 02/09/2024 MRI ABD W&WO CONTRAST 10/10/2022 MRI ABD W&WO CONTRAST 03/15/2025 US LIVER BIOPSY CORE GUIDE 12/04/2021 US LIVER BIOPSY CORE GUIDE 12/04/2021 US PARACENTESIS GUIDE 07/27/2023 FLUOR. ANTINUCLEAR AB SCREEN (LIT) 06/2022 HCV LIVER FIBROSIS, FIBRO TEST US ABDOMEN COMP WITH ELASTOGRAPHY 2021 US ABDOMEN COMP WITH ELASTOGRAPHY 2021 Prothrombin Time INR 05/19/2023 Prothrombin Time INR 03/04/2023 Prothrombin Time INR 09/23/2022 Prothrombin Time INR 02/09/2024 Prothrombin Time INR 07/14/2024 Prothrombin Time INR 08/07/2023 Prothrombin Time INR 10/10/2022 Prothrombin Time INR 03/15/2025 Prothrombin Time INR 03/16/2023 Prothrombin Time INR 03/31/2023 Prothrombin Time INR 10/20/2023 Partial Thromboplastin Time 12/04/2021 Electrolytes 03/15/2025 Creatinine 03/15/2025 Ammonia 03/16/2023 Ammonia 11/29/2023 Ammonia 03/04/2023 Ammonia 03/15/2025 Ammonia 12/04/2021 Ammonia 02/09/2024 Ammonia 08/07/2023 Ammonia 12/04/2021 Alpha Fetoprotein 10/10/2022 Liver Fibrosis Pnl 10/10/2022 Liver Fibrosis Pnl 11/09/2022 Iron Liver Tissue 12/04/2021 Iron Liver Tissue 12/04/2021 Hepatitis A Antibody IgG 01/26/2022 Hepatitis B Surface Antibody 03/31/[address] wDiff Peritoneal FL 09/08/2023 Routine Culture w Gram Stain 09/08/2023 US abdomen complete 07/14/2024 US paracentesis abd w/image 09/08/2023 Hepatitis A IgG 03/31/2023 Future Test Test Name Order Date UPPER GI ENDOSCOPY 05/19/2023 COLONOSCOPY 05/19/2023 Next Appt Details Provider Name:Sp Mitchell , 08/30/2025 04:00:00 PM, [address] [place] [address], [address], [place], [address], Insurance Providers Payer Name Payer Address Payer Phone Subscriber Number Group Number Insured Name Patient Relationship to Insured Coverage Start Date Coverage End Date [facility] [address] Attn Claims [id number] Leslie [id number] NICOLA MARIO Self - patient is the insured Medical (General) History Medical History History ICD Code History of asthma pre-COVID Severe COVID infection in 2020 resulting in respiratory failure and an approximately 2 month stay at [facility] with an associated temporary tracheostomy. He also developed liver dysfunction associated significant jaundice and persistent significantly elevated alkaline phosphatase--this was thought to have been related to one of the medications he received(? Imipenem). He was in rehab for another 6 weeks after the hospitalization before finally going home in approximately 05/2021. He was treated with a short course of ursodiol. Liver biopsy in the 2020 hospitalization described cholestasis with some bile duct injury but no significant bile duct loss were granulomatous; there was no significant steatosis nor any advanced fibrosis; iron stains were negative for increased iron storage. Overall it was felt to represent some type of cholestatic pattern of injury with a possibility of a drug-induced injury. Residual pulmonary issues fr om #2--on prednisone as of the 12/04/2021 OV--sees Dr. Arvizu at [facility] Denies CO,DM,CVA,renal disease 10/2021-he underwent ERCP wit h sphincterotomy and removal of small common duct stones prior to laparoscopic cholecystectomy, although that did not help his jaundice nor elevated alkaline phosphatase. A HIDA scan after his ERCP and cholecystectomy revealed evidence of severe liver dysfunction although there was some delayed emptying into the intestine; there was no bile leak UTI's Liver biopsy on 12/25/2021 rev ealed severe cholestasis, bile duct injuty and proliferation, fibrosis and nodule formation; iron stains and quantitative iron analysis were unremarkable [facility] evaluation by Dr. Lori Gomez on 01/07/2022--agreed with diagnosis of post-COVID cholangiopathy and starting Ursodiol; they are going to follow him from a transplant evaluation standpoint He started Ursodiol 1500 mg daily and Naltrexone toward the end of December at 2021--was able to stop the Naltrexone after his jaundice improved Adrenal suppression in relat ion to prolonged prednisone use--- being followed by endocrinology and will be starting cortisol placement once he has been weaned off of the prednisone as of the August 2022 office visit MRIs in 2022 revealed suspic ious lesions in the liver although the feeling was that this probably represented fatty liver and/or regenerating nodules. He underwent a biopsy in January of 2023 at [facility]. This was negative for any sign of cancer and confirmed the diagnosis of stroke cysts and bile duct inflammation He developed ascites and low er extremity edema in 2022 requiring a large-volume paracentesis and diuretics. There was no evidence of any SBP MRI in April of 2023 did not show any change from the earlier MRIs. It did show moderate ascites . Choledocholithiasis with cho langitis treated by ERCP at [facility] June of 2023. His bilirubin went up to about 20 at that time. Upper endoscopy in July 27 revealed a portal gastropathy but no sign of any varices nor esophagitis ERCP in 06/2023 at [facility] for recurrent CBD stones/Cholangitis Colonoscopy in July 2023 revealed an edematous colon consistent with his portal hypertension, prominent internal hemorrhoids, and rectal veins and/or varices, and small colon polyps that were not removed or biopsied due to his coagulopathy Spontaneous bacterial perito nitis based on cell count of ascites during an ultrasound paracentesis in July of 2023 in which more than 6 L of fluid were removed. He had a brief hospitalization for IV antibiotics and has continued on prophylactic Cipro since that time Second paracentesis in 2022 removed only 1.8 L and fluid was negative for spontaneous bacterial peritonitis. The ascites albumin was 0.7 and the total protein was 1.3 at that time. Neuropathy of lower extremit ies for which he is being evaluated by a neurologist at [facility] Hospitalization at [facility] in February 2025 for problems including a blood sugar over 400 and some possible hepatic encephalopathy although his ammonia level was only in the high 60's. He was started on insulin at that time. He was also started on Xifaxan in addition to his lactulose. Surgical History Surgery Date(Month/Year) Laparoscopic cholecystectomy in 10/2021 with preop ERCP, sphincterotomy, and common duct stone removal Tracheostomy Inguinal hernia left
[2025-05-08 13:03] VITALS: BP 123/76; PULSE 81; RESP 15; O2SAT 97
[2025-05-08 13:46] VITALS: BP 108/78; PULSE 91; RESP 18; TEMP 36.4; O2SAT 96
--- NOTE | 2025-05-08 13:56 | PM.IMHP ---
History of Present Illness Date of Service: 05/08/25 Chief Complaint: asterixis, ams 50M PMH liver cirrhosis due to meropenem vs covid, SBP, secondary adrenal insufficiency, diabetes presented with asterixis. Patient states he has not had a good bowel movement for about 4-5 days. Normally has about 2-3 bowel movements per day on lactulose 30 g t.i.d.. He states that he has been having increased brain fog, asterixis, came to ED out of concern for hepatic encephalopathy. In ED ammonia elevated at 58, previously in the 30s. CT abdomen with no acute abnormality, chronic cirrhotic morphology with hepatomegaly and stigmata of portal hypertension. Review of Systems Review of Systems: Yes all other systems are reviewed and are negative [facility] Medical History Myofascial pain syndrome GERD (gastroesophageal reflux disease) Pulmonary fibrosis History of type 2 diabetes mellitus Hepatic cirrhosis Ascites COVID-19 Asthma Surgical History Hx of tracheostomy History of left inguinal hernia repair Hx of cholecystectomy History of ERCP Social History Household Members: Spouse and Children Housing: House Are you a primary care rep to a significant other at home: No Do you presently have visiting nurse or other home services: Yes Alcohol intake: former Patient Tobacco Use Status: Never used Tobacco Advance Directives: Yes Advance Directives Information Provided: Yes Advance Directives on File: No Do you have a plan to hurt others: No Plan service: No Meds Allergies Allergy/AdvReac Type Severity Reaction Status Date / Time amoxicillin Allergy Severe Hives Verified 05/08/25 10:38 meropenem AdvReac Severe liver Verified 05/08/25 10:38 failure quetiapine (From Seroquel) AdvReac Intermediate Blurry Verified 05/08/25 10:38 Vision Active Medications: Current Medications Enoxaparin Sodium (Enoxaparin Sodium 40 Mg/0.4 Ml Syringe) 40 mg SUBCUT Q24H ABDIEL Sodium Chloride (Ns) 1,000 mls @ 999 mls/hr IV .Q1H1M ABDIEL Stop: 05/08/25 14:15 Last Admin: 05/08/25 13:46 Dose: 999 mls/hr Lactulose (Lactulose 20 Gm/30 Ml Solution) 30 gm PO Q2H ABDIEL Home Medications ?Medication ?Instructions ?Recorded ?Confirmed ?Last Taken ?Type dicyclomine 10 mg capsule 10 mg PO QID PRN abdominal cramps 07/24/23 08/08/23 Unknown History gabapentin 600 mg tablet 600 mg PO TID 07/24/23 08/08/23 08/07/23 History montelukast 10 mg tablet 10 mg PO QPM 07/24/23 08/08/23 08/07/23 History spironolactone 25 mg tablet 50 mg PO DAILY 07/24/23 08/08/23 08/07/23 History ursodiol 500 mg tablet 500 mg PO TID 07/24/23 08/08/23 08/07/23 History furosemide 20 mg tablet 40 mg PO DAILY 08/07/23 08/08/23 08/07/23 History albuterol sulfate 2.5 mg/3 mL 2.5 mg inhalation Q6H PRN wheezing 08/08/23 08/08/23 Unknown History (0.083 %) solution for nebulization albuterol sulfate 90 mcg/actuation 1 puff inhalation Q6H PRN wheezing 08/08/23 08/08/23 Unknown History aerosol inhaler (Ventolin HFA) baclofen 10 mg tablet 10 mg PO TID 08/08/23 08/08/23 Unknown History cabergoline 0.5 mg tablet 0.25 mg PO MOTH 08/08/23 08/08/23 08/06/23 History cetirizine 10 mg tablet 10 mg PO DAILY 08/08/23 08/08/23 Unknown History cholecalciferol (vitamin D3) 10 20 mcg PO DAILY 08/08/23 08/08/23 Unknown History mcg (400 unit) tablet (Vitamin D3) dupilumab 300 mg/2 mL subcutaneous 300 mg subcut Q2W 08/08/23 08/08/23 08/06/23 History pen injector (Dupixent) fluticasone propionate 50 2 spray intranasal DAILY 08/08/23 08/08/23 Unknown History mcg/actuation nasal spray,suspension hydrocortisone 5 mg tablet 5 mg PO DAILY 08/08/23 08/08/23 Unknown History hydrocortisone 5 mg tablet 10 mg PO QAM 08/08/23 08/08/23 Unknown History lactulose 10 gram/15 mL oral 30 ml PO DAILY PRN Constipation 08/08/23 08/08/23 Unknown History solution melatonin 5 mg tablet 5 mg PO BEDTIME insomnia 08/08/23 08/08/23 Unknown History mirtazapine 7.5 mg tablet 7.5 mg PO BEDTIME 08/08/23 08/08/23 08/07/23 History multivitamin with folic acid 400 1 tab PO DAILY 08/08/23 08/08/23 Unknown History mcg tablet (Daily-Nathaniel (with folic acid)) pantoprazole 40 mg tablet,delayed 40 mg PO BEDTIME 08/08/23 08/08/23 Unknown History release ciprofloxacin HCl 250 mg tablet 250 mg PO DAILY infectious disease 12/11/23 12/11/23 Unknown History Physical Exam Vital Signs and Narrative: Vital Signs: Last Vital Signs Temp 97.6 F 05/08/25 13:46 Pulse 91 05/08/25 13:46 Resp 18 05/08/25 13:46 BP 108/78 05/08/25 13:46 Pulse Ox 96 05/08/25 13:46 O2 Del Method Room Air 05/08/25 13:46 BMI result Body Mass Index 31.7 General: AO X 3, no acute distress Resp: CTA bilateral, no accessory muscles used CVS: S1,S2,RRR GI: soft, non tender, non distended Neuro: motor grossly intact, alert, asterixis Psych: appropriate affect, appropriate insight Results Labs 05/08/25 11:24 05/08/25 11:24 Labs: Laboratory Results - last 24 hr 05/08/25 05/08/25 11:24 12:20 MCV 90.1 MCH 29.5 MCHC 32.8 RDW 16.5 H Plt Count 182 MPV 10.3 Immature Gran % (Auto) 0.3 Neut % (Auto) 76.1 H Lymph % (Auto) 13.2 L [place] % (Auto) 8.1 Eos % (Auto) 1.5 Baso % (Auto) 0.8 Lymph # (Auto) 1.6 [place] # (Auto) 1.0 Eos # (Auto) 0.2 Baso # (Auto) 0.1 Abs Immat Gran (auto) 0.04 H Absolute Neuts (auto) 9.0 H Absolute Nucleated RBC 0.000 Nucleated RBC % (auto) 0.0 PT 12.9 H INR 1.1 Anion Gap 15 Estim Creat Clear Calc 72.4 Estimated GFR 47 Random Glucose 89 Calcium 10.4 H D Magnesium 2.6 Total Bilirubin 2.4 H Direct Bilirubin 1.5 H AST 78 H ALT 45 H Alkaline Phosphatase 329 H Ammonia 58 H Total Protein 7.5 Albumin 3.8 Lipase 53 Imaging Radiologist's Impressions: Impressions Abdomen/Pelvis CT 05/08/25 11:26 IMPRESSION: 1. There is no acute abnormality in the abdomen or pelvis. 2. Hepatomegaly with cirrhotic morphology of the liver. No suspicious liver abnormality. There are stigmata of portal hypertension including hepatic, splenic, gastric, splenorenal, and mesenteric varices. 3. Splenomegaly. 4. Cholecystectomy. 5. There is a 2 mm nonobstructing calculus in the left kidney. 6. There is trace perihepatic ascites. 7. Chronic compression deformity of T7 with kyphoplasty cement. Electronically signed by: Abebe Hsu MD 05/08/2025 01:00 PM EDT RP Assessment and Plan (1) Cirrhosis of liver with ascites: Status: Acute Plan 50M PMH liver cirrhosis due to meropenem vs covid, SBP, secondary adrenal insufficiency, diabetes presented with asterixis Acute metabolic encephalopathy due to liver cirrhosis with acute hepatic encephalopathy due to lack of bowel movements Increase lactulose to 30 g q.2 hours Gastroenterology eval Continue rifaximin History of spontaneous bacterial peritonitis Continue maintenance Cipro Diabetes Insulin sliding scale Secondary adrenal insufficiency Continue hydrocortisone DVT prophylaxis with Lovenox Full Code Given history of cirrhosis with encephalopathy due to hepatic encephalopathy expected require at least 2 midnights inpatient Quality Stroke Does the patient have a stroke diagnosis?: No VTE Prior VTE?: No VTE Risk Level:: Medical - moderate - high VTE Device Contraindication: Treatment Not Indicated VTE Drug Contraindication: N/A - Med Ordered
--- NOTE | 2025-05-08 14:32 | MHC.EDTECH ---
Patient requested to use the rest room patient is not weight bearing and i offered the urinal . Patient refused the urinal. I educated the patient on the dangers of him being a high fall risk. Patient was upset with care of hospital and the decision the doctor has made on his care, and is requesting to be discharged. RN made aware.
[2025-05-08 15:16] LABS: Appearance Urine Clear; Glucose Urine UA Negative (Negative); PH 7.5 (5.0-9.0); Specific Gravity - Urine 1.015 (1.005-1.025); UMIC TRIGGER UACC YES
--- NOTE | 2025-05-08 15:27 | PHA.MEDREC ---
Pharmacy Consult ? Medication Reconciliation Pharmacy has completed the medication reconciliation. Spoke to patient who has a written home med list with him to confirm medication list. Per patient, he takes dupixent every other thursday (last dose was on 05/02/25). He uses humalog tidac per sliding scale and lantus 26 units at bedtime. Patient takes pantoprazole 40 mg at noon, gavilax twice a day and lactulose 30 ml tid prn constipation. He uses both ipratropium nasal spray (2 sprays in each nostril daily) and fluticasone nasal sprays (2 sprays in each nostril twice daily). Last dose of medications was this morning 05/08/25.
[2025-05-08 16:19] LABS: Glucose, Whole Blood 144 mg/dL (60-115)
[2025-05-08 16:20] VITALS: BP 117/69; PULSE 90; RESP 15; TEMP 36.4; O2SAT 95
[2025-05-08 18:08] VITALS: BP 136/79; PULSE 96; RESP 17; TEMP 36.4; O2SAT 97
--- NOTE | 2025-05-08 18:08 | PM.DS ---
DS: Providers Provider Date of Service: 05/08/25 Date of admission: 05/08/25 13:16 Date of discharge: 05/08/25 Primary care physician: Unknown Physician Consults: 05/08/25 13:55 Consult to Gastroenterology Routine Consulting Provider: Sp Mitchell Reason for consultation: cirrhosis, encephalopathy DS: Diagnosis Discharge Diagnosis (1) Cirrhosis of liver with ascites: Status: Acute DS: Summary Hospital Course Hospital Course: from initial hpi: 50M PMH liver cirrhosis due to meropenem vs covid, SBP, secondary adrenal insufficiency, diabetes presented with asterixis. Patient states he has not had a good bowel movement for about 4-5 days. Normally has about 2-3 bowel movements per day on lactulose 30 g t.i.d.. He states that he has been having increased brain fog, asterixis, came to ED out of concern for hepatic encephalopathy. In ED ammonia elevated at 58, previously in the 30s. CT abdomen with no acute abnormality, chronic cirrhotic morphology with hepatomegaly and stigmata of portal hypertension. hospital course: Patient was admitted for concern for acute metabolic encephalopathy due to liver cirrhosis with acute hypoxic encephalopathy due to lack of bowel movements. Was seen by Gastroenterology who felt this was not true encephalopathy mild asterixis due to constipation recommended discharge home with MiraLax and dulcolax bowel prep and outpatient follow up. We will continue on lactulose and rifaximin as well. For history of spontaneous bacterial peritonitis was continued on Cipro. For diabetes was continued on insulin sliding scale. For secondary adrenal insufficiency continued on hydrocortisone. Time Attestation Discharge Coordination Time (in mins): 32 Quality: Safe Use of Opioids Does Pt have an Active Cancer Diagnosis on the Problem List?: No Quality: Stroke Does the patient have a stroke diagnosis?: No Physical Exam Vital Signs: Vital Signs: Last Vital Signs Temp 97.5 F 05/08/25 16:20 Pulse 90 05/08/25 16:20 Resp 15 05/08/25 16:20 BP 117/69 05/08/25 16:20 Pulse Ox 95 05/08/25 16:20 O2 Del Method Room Air 05/08/25 16:20 BMI result Body Mass Index 31.7 General: AO X 3, no acute distress, mild asterixis Resp: CTA bilateral, no accessory muscles used CVS: S1,S2,RRR GI: soft, non tender, non distended Neuro: motor grossly intact, alert Psych: appropriate affect, appropriate insight DS: Data Data Completed and Pending Labs on day of discharge: Laboratory Results - last 24 hr 05/08/25 05/08/25 05/08/25 11:24 12:20 15:05 WBC 11.8 H RBC 5.25 Hgb 15.5 Hct 47.3 MCV 90.1 MCH 29.5 MCHC 32.8 RDW 16.5 H Plt Count 182 MPV 10.3 Immature Gran % (Auto) 0.3 Neut % (Auto) 76.1 H Lymph % (Auto) 13.2 L [place] % (Auto) 8.1 Eos % (Auto) 1.5 Baso % (Auto) 0.8 Lymph # (Auto) 1.6 [place] # (Auto) 1.0 Eos # (Auto) 0.2 Baso # (Auto) 0.1 Abs Immat Gran (auto) 0.04 H Absolute Neuts (auto) 9.0 H Absolute Nucleated RBC 0.000 Nucleated RBC % (auto) 0.0 PT 12.9 H INR 1.1 Sodium 140 Potassium 4.2 Chloride 105 Carbon Dioxide 24 Anion Gap 15 BUN 26 H Creatinine 1.57 H Estim Creat Clear Calc 72.4 Estimated GFR 47 POC Glucose Random Glucose 89 Calcium 10.4 H D Magnesium 2.6 Total Bilirubin 2.4 H Direct Bilirubin 1.5 H AST 78 H ALT 45 H Alkaline Phosphatase 329 H Ammonia 58 H Total Protein 7.5 Albumin 3.8 Lipase 53 Urine Color Yellow Urine Appearance Clear Urine pH 7.5 Ur Specific [place] 1.015 Urine Protein Negative Urine Glucose (UA) Negative Urine Ketones Negative Urine Blood Negative Urine Nitrite Negative Ur Leukocyte Esterase Trace H Urine RBC 0-2 Urine WBC 0-5 Ur Squamous Epith Cells 0-2 Urine Bacteria None Seen Hyaline Casts 0-2 05/08/25 16:14 WBC RBC Hgb Hct MCV MCH MCHC RDW Plt Count MPV Immature Gran % (Auto) Neut % (Auto) Lymph % (Auto) [place] % (Auto) Eos % (Auto) Baso % (Auto) Lymph # (Auto) [place] # (Auto) Eos # (Auto) Baso # (Auto) Abs Immat Gran (auto) Absolute Neuts (auto) Absolute Nucleated RBC Nucleated RBC % (auto) PT INR Sodium Potassium Chloride Carbon Dioxide Anion Gap BUN Creatinine Estim Creat Clear Calc Estimated GFR POC Glucose 144 H Random Glucose Calcium Magnesium Total Bilirubin Direct Bilirubin AST ALT Alkaline Phosphatase Ammonia Total Protein Albumin Lipase Urine Color Urine Appearance Urine pH Ur Specific [place] Urine Protein Urine Glucose (UA) Urine Ketones Urine Blood Urine Nitrite Ur Leukocyte Esterase Urine RBC Urine WBC Ur Squamous Epith Cells Urine Bacteria Hyaline Casts Discharge Plan Discharge Anticipated Discharge Date/Time: 05/08/25 18:05 Patient Disposition: Home, Self-Care Discharge Diagnosis: asterixis Referrals: Physician,Rekha Davenport [Primary Care Provider, Medical] - 1 Week Sp Mitchell MD [Physician, Gastroenterology] - 1 Week Discharge Medications: Continued gabapentin 600 mg tablet 600 mg PO TID spironolactone 25 mg Tablet 50 mg PO DAILY montelukast 10 mg tablet 10 mg PO BEDTIME dicyclomine 10 mg Capsule 10 mg PO QID PRN (Reason: abdominal cramps) ursodiol 500 mg Tablet 500 mg PO TID furosemide 20 mg tablet 60 mg PO DAILY hydrocortisone 5 mg tablet 5 mg PO DAILY@1200 Rx Instructions: afternoon hydrocortisone 5 mg tablet 10 mg PO DAILY albuterol sulfate 2.5 mg /3 mL (0.083 %) solution for nebulization 2.5 mg inhalation Q6H PRN (Reason: wheezing) baclofen 10 mg tablet 20 mg PO TID pantoprazole 40 mg tablet,delayed release (DR/EC) 40 mg PO DAILY@1200 albuterol sulfate [Ventolin HFA] 90 mcg/actuation HFA aerosol inhaler 1 puff inhalation Q6H PRN (Reason: wheezing) fluticasone propionate 50 mcg/actuation spray,suspension 2 spray intranasal BID lactulose 10 gram/15 mL solution 30 ml PO TID PRN (Reason: Constipation) melatonin 5 mg tablet 10 mg PO BEDTIME multivitamin with folic acid [Daily-Nathaniel (with folic acid)] 400 mcg tablet 1 tab PO DAILY Dupixent Pen 300 mg/2 mL pen injector 300 mg subcut Q2W Rx Instructions: tuesdays ciprofloxacin HCl 250 mg tablet 250 mg PO DAILY fexofenadine 180 mg tablet 180 mg PO DAILY ropinirole 0.25 mg tablet 0.25 mg PO BEDTIME polyethylene glycol 3350 [Gavilax] 17 gram/dose powder 17 g PO BID ipratropium bromide 21 mcg (0.03 %) spray,non-aerosol 2 spray intranasal DAILY insulin lispro [Humalog KwikPen Insulin] 100 unit/mL insulin pen See Protocol SUBCUT [facility] Protocol: Insulin Correction Scale Less than or equal to 110 ---- Give (units): 0 111 to 150 Give (units): 0 151 to 200 Give (units): 2 201 to 250 Give (units): 4 251 to 300 Give (units): 6 301 to 350 Give (units): 8 Greater than 350 Give (units): 10 Call MD if Blood Glucose > : 350 Rx Instructions: 9 units and above for breakfast, 12 units and above for lunch and dinner budesonide-formoterol 160-4.5 mcg/actuation HFA aerosol inhaler 2 puff inhalation BID insulin glargine [Lantus Solostar U-100 Insulin] 100 unit/mL (3 mL) insulin pen 26 unit subcut BEDTIME Xifaxan 550 mg tablet 550 mg PO BID mirtazapine 30 mg tablet 30 mg PO BEDTIME cholecalciferol (vitamin D3) [Vitamin D3] 25 mcg (1,000 unit) tablet 25 mcg PO DAILY Discharge Orders: Discharge Order (Routine); Ordered 05/08/25 Ordered By: Robinson Reed Diet: Advance to usual diet Activity on Discharge: As tolerated Stand Alone Forms: Patient Portal Discharge page Print Language: Tuvaluan Care Plan Goals: manage constipation Health Concerns: asterixis, constipation Plan of Treatment: miralax prep with duclolax, follow up gi Assessment: see above
[2025-05-08 18:13] LABS: Glucose, Whole Blood 158 mg/dL (60-115)
--- NOTE | 2025-05-08 23:46 | PM.EVENT ---
Event Note Date of Service: 05/08/25 Event Note: GI Consult-Full note dictated-History from patient, at the bedside, and the EMR. Patient was seen at 6PM in the ER Imp/Recs: 1. Cirrhosis-stable and without any signs of decompensation. There are no signs of hepatic encephalopathy on exam and the ammonia level is only 58. His CT does not show any signs of significant ascites. There has been no GI bleeding. I would continue his current regimen of Lactulose and Xifaxan. Based on his current exam and appearance I do not think he needs admission for the issue of his liver disease. 2. Constipation--there is no evidence of bowel obstruction on exam or by CT. His colonoscopy in the past did not show any significant findings. I would recommend a colonoscopy prep clean out and then get back on his usual regimen, as well as a fiber supplement. He should avoid Dicyclomine. At this point the patient would prefer to do the bowel prep at home. I don't see any contraindication to that, although I did advise him to return to the ER if he develops pain or vomiting. I did speak with Dr. Reed and recommended discharge. The patient and his were happy with that plan. Thanks Time Spent With Patient Time: Total time managing care of this patient today ____ minutes.
--- NOTE | 2025-05-09 06:11 | CONS_ITS ---
DATE OF SERVICE: 05/08/2025 REASON FOR CONSULTATION: Cirrhosis, history of encephalopathy, and constipation. HISTORY OF PRESENT ILLNESS: This has been obtained from the patient, his who is at the bedside, and the medical record. 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 His history in this regard is well documented in previous notes that are scanned into the medical record. The patient has had a history of encephalopathy and has been using both Xifaxan and lactulose. In the ER, he was noted to have an elevated ammonia level of 58. However, his mental status was at baseline. He has had no increasing abdominal girth, jaundice, nor fevers. He denies any problems such as hematemesis, melena, nor hematochezia. He is eating well and denies any dysphagia nor early satiety. He has been troubled by constipation recently. He has not had a bowel movement about 4 days. He has been using lactulose at home. Denies any vomiting. He denies any rectal pain. Of note, he had stopped his dicyclomine about a week or so ago but resumed it shortly before becoming constipated. Medication list has been reviewed and is in the medical record. 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 This was in January 2021 and resulted in a 2-month hospital stay at [facility]. He has had periods of significant jaundice. He has been evaluated at [facility] at their liver Transplant Clinic but presently is not listed as an active transplant candidate since his liver disease has stabilized. However, he is still followed there periodically. Other medical issues include history of asthma. He has had choledocholithiasis for which he has undergone ERCP with sphincterotomy at [facility]. He has had UTIs. The liver biopsy in 2021 revealed severe cholestasis, bile duct injury, bile duct proliferation, fibrosis, and nodule formation. He denies history of DC, stroke. PAST SURGICAL HISTORY: Include laparoscopic cholecystectomy, tracheostomy, and inguinal hernia on the left. FAMILY HISTORY: Noncontributory. 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 He does not smoke nor use any significant amount of alcohol. REVIEW OF SYSTEMS: CONSTITUTIONAL: He has been feeling fairly well at home. SKIN: No rash. No pruritus. CARDIAC: No chest pain. PULMONARY: No coughing, no hemoptysis. GI: As above. NEUROLOGIC: No headache or seizures. PHYSICAL EXAMINATION: GENERAL: The patient appears quite well and at his baseline. He is quite alert and answers all questions appropriately. There is no asterixis. SKIN: Warm and dry. Nonjaundiced. Anicteric sclerae. CARDIAC: Normal S1, S2. ABDOMEN: Soft, but nontender, without mass, no organomegaly. There is no obvious distention with ascites. EXTREMITIES: Without edema. LABORATORY DATA: He did have a CT scan that was negative for any sign of bowel obstruction, ascites, nor biliary obstruction. White blood cell count 11.8, hemoglobin 15.5, platelets 182,000. PT 12.9 with INR 1.1. Normal electrolytes, BUN 26, creatinine 1.5, total bilirubin is 2.4, direct bilirubin 1.5, AST 78, ALT 45, alkaline phosphatase 229, ammonia level 58, lipase 53. IMPRESSION: Overall, the patient appears quite stable without any sign of liver decompensation. He does not show any clinical evidence of encephalopathy based on his exam, and the ammonia level is minimally elevated. Therefore, I would continue to treat him with his usual outpatient regimen of the lactulose and Xifaxan. Given his good clinical appearance and just minimally elevated ammonia level, I do not think there is any definitive need for him to stay in the hospital at this point for the encephalopathy. In regard to his constipation, there does not appear to be any sign of bowel obstruction. His colonoscopy a couple of years ago did not show any significant abnormalities either. Given the negative CT for obstruction, I think it would be safe to try a bowel cleanout with a colonoscopy type prep with MiraLAX and Dulcolax. He is familiar with this as he has done it before for his colonoscopy. I also do not think he needs to stay in the hospital for this issue either given his good clinical appearance. I did advise him to use the full colonoscopy prep if need be, but he does not have to finish it 100% as we are not doing a colonoscopy tomorrow. The patient and his have asked about his possibly going home today. I do not see any contraindication to that based on his exam and his history. I did speak with Dr. Reed about this and he was going to go down and speak with the patient and then discharge him if he agrees. I will see Mauricio in the office for followup as well. I did advise him to contact me if he has any problems or questions in the interim. MD NAHEED Petersen/EFREN / [id number]
== END 2025-05-08 18:26 | disposition home or self-care (01) | DRG 441 ==
LOC: HO.ED 13:11 → HO.EDOVER 13:30
PROVIDERS: Physician Assistant Medical; Admitting Provider Internal Medicine; Emergency Provider Emergency Medicine; Visit Provider Internal Medicine
DX: K71.7 Toxic liver disease with fibrosis and cirrhosis of liver (principal); G93.41 Metabolic encephalopathy; E27.49 Other adrenocortical insufficiency; K76.6 Portal hypertension; T36 Poisoning by, adverse effect of and underdosing of systemic antibiotics; K59.00 Constipation, unspecified; Z79.4 Long term (current) use of insulin; Z79.899 Other long term (current) drug therapy
CPT/HCPCS: 36415; 74177; 80048; 80076; 81001; 82140; 82947; 83690; 83735; 85025; 85610; 99285; Q9967

== ENCOUNTER → 2025-05-08 12:05 | Outpatient (BNV) | payer OTHER, SELFPAY | PROVIDERS: Admitting Provider Internal Medicine; Emergency Provider Emergency Medicine; Visit Provider Radiology Diagnostic Radiology | DX: R16.2 Hepatomegaly with splenomegaly, not elsewhere classified (principal); K74.60 Unspecified cirrhosis of liver; K76.6 Portal hypertension; N20.0 Calculus of kidney | CPT/HCPCS: 74177 ==

== ENCOUNTER → 2025-05-08 13:16 | Outpatient (BNV) | payer OTHER, SELFPAY | PROVIDERS: Admitting Provider Internal Medicine; Emergency Provider Emergency Medicine; Visit Provider Internal Medicine | DX: K74.60 Unspecified cirrhosis of liver (principal); R18.8 Other ascites | CPT/HCPCS: 99223; 99499 ==